=== PATIENT | male | born 1950 | race Caucasian/White ===

== ENCOUNTER → 2020-08-09 07:50 | Outpatient (CLI) | payer MEDICARE, OTHER, SELFPAY ==
--- NOTE | 2020-08-09 07:53 | EKG12_ITS ---
Test Reason : PREOP Blood Pressure : / mmHG Vent. Rate : 057 BPM Atrial Rate : 057 BPM P-R Int : 180 ms QRS Dur : 084 ms QT Int : 440 ms P-R-T Axes : 014 -06 035 degrees QTc Int : 428 ms Sinus bradycardia Otherwise normal ECG Confirmed by ECHO HIDALGO, TATIANA ([id number]), writer editor QI PIMENTEL ([id number]) on 08/10/2020 11:39:11 AM Referred By: Adolfo Sharma Confirmed By:TATIANA DODGE MD
[2020-08-09 08:37] LABS: Absolute Lymphocyte Count 1.49 X10^3/uL (0.83-4.51); Absolute Neutrophil Count 3.7 X10^3/uL (2.0-7.7); Basophil# 0.02 X10^3/uL; Basophil% 0.3 % (0-1); Eosinophil# 0.11 X10^3/uL; Eosinophils% 1.9 % (0-5); Hematocrit 45.1 % (40-54); Hemoglobin 15.3 g/dL (13.0-16.5); Lymphocyte # 1.49 X10^3/ul (4.0); Lymphocyte % 25.3 % (19-41); Mean Corp Hgb Conc 33.9 g/dL (32-36); Mean Corpuscular Hgb 32.4 pg (27.0-32.0); Mean Corpuscular Volume 95.6 fL (80-94); Mean Platelet Vol. 9.7 fl (6.2-12.0); Monocyte# 0.53 X10^3/uL; NRBC Flagged by Analyzer 0 % (0-5); Neutrophil # 3.72 X10^3/uL (2.7-7.7); Platelet Count 213 K/mm3 (150-450); RBC Distribution Width CV 11.4 % (11.6-14.6); RBC Distribution Width SD 40.2 fl (35.1-43.9); Red Blood Count 4.72 M/mm3 (4.6-6.2); White Blood Count 5.9 K/mm3 (4.4-11.0)
[2020-08-09 09:06] LABS: Anion Gap 3 (5-15); BUN 8 mg/dL (7-18); BUN/Creat Ratio 8.1 RATIO (10-20); Calcium,Total 9.1 mg/dL (8.5-10.1); Chloride 106 mmol/L (98-107); Creatinine, Serum 0.99 mg/dL (0.70-1.30); EST Glomerular Filtration Rate 79 mL/min (>60); Est Glom Filt Rate - Afr Amer 96 mL/min (>60); Glucose 165 mg/dL (74-106); Potassium 4.1 mmol/L (3.5-5.1); Sodium Level 139 mmol/L (136-145)
== END ==
PROVIDERS: Referring Provider Physician Assistant; Visit Provider Physician Assistant
DX: Z01.812 Encounter for preprocedural laboratory examination (principal); Z01.810 Encounter for preprocedural cardiovascular examination; Z20.822 Contact with and (suspected) exposure to COVID-19
CPT/HCPCS: 36415; 80048; 85025; 87635; 93005; C9803; U0005; U0003

== ENCOUNTER → 2020-10-22 14:37 | Outpatient (CLI) | payer MEDICARE, OTHER, SELFPAY | PROVIDERS: Visit Provider Physician Assistant | DX: Z20.822 Contact with and (suspected) exposure to COVID-19 (principal) | CPT/HCPCS: 87635; C9803; U0002 ==

== ENCOUNTER → 2020-10-25 14:27 | Outpatient (CLI) | payer MEDICARE, OTHER, SELFPAY ==
[2020-10-25 17:36] LABS: Hematocrit 45.3 % (40-54); Hemoglobin 14.9 g/dL (13.0-16.5); Mean Corp Hgb Conc 32.9 g/dL (32-36); Mean Corpuscular Hgb 31.7 pg (27.0-32.0); Mean Corpuscular Volume 96.4 fL (80-94); Mean Platelet Vol. 10.3 fl (6.2-12.0); Platelet Count 212 K/mm3 (150-450); RBC Distribution Width CV 11.6 % (11.6-14.6); RBC Distribution Width SD 40.8 fl (35.1-43.9); White Blood Count 5.5 K/mm3 (4.4-11.0)
[2020-10-25 18:00] LABS: Anion Gap 5 (5-15); BUN 9 mg/dL (7-18); BUN/Creat Ratio 10.7 RATIO (10-20); Chloride 104 mmol/L (98-107); Creatinine, Serum 0.84 mg/dL (0.70-1.30); EST Glomerular Filtration Rate 95 mL/min (>60); Est Glom Filt Rate - Afr Amer 115 mL/min (>60); Glucose 87 mg/dL (74-106); Potassium 3.9 mmol/L (3.5-5.1); Sodium Level 141 mmol/L (136-145)
== END ==
PROVIDERS: Referring Provider Physician Assistant; Visit Provider Physician Assistant
DX: Z01.810 Encounter for preprocedural cardiovascular examination (principal); Z01.812 Encounter for preprocedural laboratory examination
CPT/HCPCS: 36415; 80048; 85027

== ENCOUNTER 2025-03-21 10:41 | Emergency (ER) | payer MEDICARE, OTHER, SELFPAY ==
[2025-03-21 10:42] VITALS: BP 140/70; PULSE 64; RESP 18; TEMP 36.9; O2SAT 98; BMI 29.2
--- OUTSIDE RECORDS SUMMARY | 2025-03-21 11:08 | XMS RPT_ITS | CCD ---
Author Organization [facility] Inform ion Partnership [facility] Care Team Providers Care Metal Hanging Supervisor Name Role Phone Garrett HIDALGO, Chris Sarmiento Primary Care Provider [phone] Chris Ibarra MD Primary Care Provider [phone] Dorita Lincoln APRN.CNP Unavailable [phone] CHRIS IBARRA Attending Unavailable GARRETT, CHRIS Sarmiento Primary Care Unavailable MEENA CORRAL Referring Unavailable GARRETT, CHRIS Sarmiento Primary Care Unavailable GARRETT, CHRIS Sarmiento Referring Unavailable IBARRA, CHRIS Sarmiento Primary Care Unavailable GARRETT, CRHIS Sarmiento Primary Care Unavailable GARRETT, CHRIS Sarmiento Attending Unavailable GARRETT, CHRIS Sarmiento Primary Care Unavailable GARRETT, CHRIS Sarmiento Referring Unavailable GARRETT, CHRIS Sarmiento Primary Care Unavailable MEENA CORRAL Attending Unavailable GARRETT, CHRIS Sarmiento Referring Unavailable IBARRA, CHRIS Sarmiento Primary Care Unavailable IBARRA, CHRIS Sarmiento Attending Unavailable GARRETT, CHRIS Sarmiento Primary Care Unavailable Allergies Allergy Classification Reported Allergen(s) Allergy Type Date of Onset Reaction(s) Facility Cephalosporins (antibiotic) (1 source) Cephalexin Drug Allergy 09-16-2021 [facility] (20 sources) Cephalexin; Translations: [CEPHALEXIN] Drug Allergy 09-16-2021 [facility] Medications Current Medications Medication Drug Class(es) Dates Sig (Normalized) Sig (Original) Ascorbic Acid (20 sources) Vitamin C take 1 tablet by mouth once chas y take 1 tablet by mouth once chas y ascorbic acid (V ITAMIN C ORAL) Take by mouth. 0 Active Comment on above: Take by mouth. Take 1 tablet by leatha once daily. Unknown dosage cephalexin 500 mg oral capsule (1 source) Cephalosporin Antibacterial Start: End: take 1 capsule by mouth four times daily cephALEXin (KEFLEX) 500 mg capsule Take 1 capsule by mouth four times daily for 7 days. 28 capsule 0 09/12/2021 09/19/2021 Active Comment on above: Take 1 capsule by mo [facility] four times daily for 7 days. cholecalciferol 0.025 mg oral tablet (20 sources) Vitamin D take 3 tablets by mouth once daily cholecalciferol (VITAMIN D3) 1,000 unit tab tablet Take 3,000 Units by mouth once daily. Active Comment on above: Take 3,000 Units by mouth once daily. doxycycline hyclate 100 mg oral tablet (2 sources) Tetracycline-class Drug Start: End: take 1 tablet by mouth twice daily doxycycline (VIBRA-TABS) 100 mg tablet Take 1 tablet by mouth twice daily for 7 days. 14 tablet 0 12/24/2022 12/31/2022 Active Comment on above: [facility] fexofenadine hydrochloride 180 mg oral tablet (20 sources) Histamine-1 Receptor Antagonist Start: End: take 1 tablet by mouth once daily fexofenadine (MARITZA) 180 mg tablet Indications: Allergic rhinitis, unspecified seasonality, unspecified trigger Take 1 tablet by mouth once daily. 90 tablet 3 07/10/2024 Active Comment on above: Take 1 tablet by leatha once daily. finasteride 5 mg oral tablet (20 sources) 5-alpha Reductase Inhibitor Start: End: take 1 tablet by mouth once daily finasteride (PROSCAR) 5 mg tablet Indications: BPH with obstruction/lower urinary tract symptoms Take 1 tablet by mouth once daily. 90 tablet 5 11/19/2024 Active Comment on above: TAKE 1 TABLET DAILY Take 1 tablet by leatha once daily. triamcinolone acetonide 1 mg/ml topical cream (20 sources) Corticosteroid Start: End: triamcinolone acetonide (KENALOG) 0.1 % cream Indications: Rash and nonspecific skin eruption Apply 1 application to affected area three times a day. Apply sparingly to area for rash/itching. 30 g 1 12/03/2023 Active Comment on above: Apply 1 application to affected area three times daily. Apply sparingly to area for rash/itching. Apply 1 application to affected area three times daily for 7 days. Apply sparingly to area for rash/itching. vitamin b12 1 mg oral tablet (20 sources) Vitamin B12 take 1 tablet by mouth once daily cyanocobalamin (VITAMIN B-12) 1,000 mcg tab Take 1,000 mcg by mouth once daily. Active Comment on above: Take 1,000 mcg by mo [facility] once daily. Completed/Discontinued Medications Medication Drug Class(es) Dates Sig (Normalized) Sig (Original) acetaminophen 250 mg / aspirin 250 mg / caffeine 65 mg oral tablet (3 sources) Platelet Aggregation Inhibitor, Nonsteroidal Anti-inflammatory Drug, Central Nervous System Stimulant, Methylxanthine Start: 10-21-2020 End: 11-07-2021 take 1 tablet by mouth every eight hours as needed Aspirin-Acetaminop hen-Caffeine (EXCEDRIN) 250-250-65 mg per tablet Take 1 tablet by mouth every 8 hours as needed (shoulder pain.). 0 10/21/2020 11/07/2021 Discontinued Comment on above: Take 1 tablet by leatha every 8 hours as needed (shoulder pain.). fluticasone propionate 0.05 mg/actuat metered dose nasal spray (1 source) Corticosteroid Start: 09-09-2019 take 2 spray(s) by mouth once daily fluticasone (FLONASE) 50 mcg/actuation nasal spray Use 2 Sprays in each nostril once daily. Rinse mouth after use. 1 Bottle 11 09/09/2019 Active Comment on above: Use 2 Sprays in each nostril once daily. Rinse mouth after use. loratadine 10 mg oral tablet (7 sources) Start: 09-12-2021 End: 10-12-2022 take 1 tablet by mouth once daily loratadine (CLARITIN) 10 mg tablet Take 1 tablet by mouth once daily. 30 tablet 11 09/12/2021 10/12/2022 Discontinued (Changing Therapy/Dosage Form) Comment on above: Take 1 tablet by leatha once daily. metroNIDAZOLE 7.5 mg/ml topical cream (16 sources) Nitroimidazole Antimicrobial End: 12-03-2023 metroNIDAZOLE 0.75 % cream Apply 1 application to affected area twice daily. 0 12/03/2023 Discontinued Comment on above: Apply 1 application to affected area twice daily. predniSONE 5 mg oral tablet (2 sources) Start: 09-16-2021 End: 11-07-2021 predniSONE (DELTASONE) 5 mg tablet take two tablets daily for one week then take one table for one week then discontinue. Take with breakfast. For rash 21 tablet 0 09/16/2021 11/07/2021 Discontinued Comment on above: take two tablets coco ly for one week then take one table for one week then discontinue. Take with breakfast. For rash Problems Active Problems Problem Classification Problem Date Documented Da te Episodic/Chronic Cancer of prostate (20 sources) Malignant tumor of prostate; Translations: [Malignant neoplasm of prostate] Onset: 08-14-2007 11-30-2009 Chronic Disorders of lipid metabolism (15 sources) Hypercholesterolemi a; Translations: [Pure hypercholesterolemi a, unspecified] Onset: 12-03-2023 Chronic Hyperplasia of prostate (20 sources) Benign prostatic hypertrophy with outflow obstruction; Translations: [Benign prostatic hyperplasia with lower urinary tract symptoms] Onset: 04-24-2007 10-24-2018 Chronic Immunizations and screening for infectious disease (6 sources) Vaccination needed; Translations: [Encounter for immunization] Episodic Other nutritional; endocrine; and metabolic disorders (20 sources) Obese class I; Translations: [Obesity, unspecified] Onset: 10-21-2020 10-21-2020 Chronic Other nutritional; endocrine; and metabolic disorders (12 sources) Hypercalcemia; Translations: [Hypercalcemia] Onset: 12-03-2023 12-03-2023 Chronic Other nutritional; endocrine; and metabolic disorders (1 source) Hypercalcemia; Translations: [Hypercalcemia] Onset: 12-03-2023 Chronic Other skin disorders (5 sources) Eruption; Translations: [Rash and other nonspecific skin eruption] Episodic Other skin disorders (5 sources) Actinic keratosis; Translations: [Actinic keratosis] Onset: 12-08-2024 12-08-2024 Episodic Other upper respiratory disease (20 sources) Allergic rhinitis; Translations: [Allergic rhinitis, unspecified] Onset: 10-12-2022 Chronic Skin and subcutaneous tissue infections (2 sources) Cellulitis of skin; Translations: [Cellulitis, unspecified] 12-24-2022 Episodic Unclassified (1 source) Obesity, Class I, BMI 30-34.9; Translations: [Obesity, Class I, BMI 30-34.9] Onset: 10-21-2020 Past or Other Problems Problem Classification Problem Date Documented Date Episodic/Chronic Abdominal pain (12 sources) Left lower quadrant pain; Translations: [Left lower quadrant pain] Onset: 08-21-2006 Resolved: 10-21-2020 10-21-2020 Episodic Allergic reactions (12 sources) Allergic urticaria; Translations: [Allergic urticaria] Onset: 09-18-2005 Resolved: 10-21-2020 10-21-2020 Episodic Diabetes mellitus without complication (16 sources) Impaired fasting glycemia; Translations: [Impaired fasting glucose] Onset: 12-03-2023 12-03-2023 Episodic Diverticulosis and diverticulitis (12 sources) Diverticulitis of large intestine without perforation or abscess without bleeding; Translations: [Diverticulitis of colon (without mention of hemorrhage)] Onset: 08-21-2006 Resolved: 10-21-2020 10-21-2020 Chronic Esophageal disorders (12 sources) Gastroesophageal reflux disease; Translations: [Gastro-esophageal reflux disease without esophagitis] Onset: 11-20-2005 Resolved: 10-21-2020 10-21-2020 Chronic Genitourinary symptoms and ill-defined conditions (12 sources) Ino hematuria; Translations: [Gross hematuria] Onset: 2018 Resolved: 10-21-2020 10-21-2020 Episodic Inflammatory conditions of male genital organs (12 sources) Orchitis and epididymitis; Translations: [Epididymo-orchitis] Onset: 03-11-2009 Resolved: 10-21-2020 10-21-2020 Episodic Other circulatory disease (20 sources) Elevated blood pressure; Translations: [Elevated blood-pressure reading, without diagnosis of hypertension] Onset: 11-29-2022 Resolved: 12-05-2023 Episodic Other connective tissue disease (11 sources) Nontraumatic rupture of rotator cuff of left shoulder; Translations: [Unspecified rotator cuff tear or rupture of left shoulder, not specified as traumatic] Onset: 10-21-2020 10-21-2020 Episodic Other connective tissue disease (20 sources) Dupuytren's disease of palm; Translations: [Palmar fascial fibromatosis [Dupuytren]] Onset: 06-30-2021 Resolved: 12-05-2023 06-30-2021 Episodic Other connective tissue disease (14 sources) Nontraumatic rotator cuff tear; Translations: [Unspecified rotator cuff tear or rupture of left shoulder, not specified as traumatic] Onset: 10-21-2020 Resolved: 12-05-2023 10-21-2020 Episodic Other diseases of bladder and urethra (12 sources) Bladder neck obstruction; Translations: [Bladder-neck obstruction] Onset: 01-13-2010 Resolved: 10-21-2020 10-21-2020 Chronic Other diseases of kidney and ureters (1 source) Other obstructive and reflux uropathy; Translations: [BPH with obstruction/lower urinary tract symptoms] Onset: 10-24-2018 Episodic Other nutritional; endocrine; and metabolic disorders (14 sources) Obesity; Translations: [Obesity, unspecified] Onset: 09-18-2005 Resolved: 11-07-2021 11-30-2009 Chronic Other screening for suspected conditions (not mental disorders or infectious disease) (20 sources) Raised prostate specific antigen; Translations: [Elevated prostate specific antigen [PSA]] Onset: 07-24-2007 Resolved: 11-29-2022 11-30-2009 Episodic Other skin disorders (1 source) Actinic keratosis; Translations: [Actinic keratosis] Onset: 12-08-2024 Episodic Screening and history of mental health and substance abuse codes (4 sources) Patient encounter status; Translations: [Encounter for screening for depression] Onset: 12-08-2024 12-08-2024 Episodic Results Test Name Value Interpretation Reference Range Facility [facility] 03-10-2025 CNOV Office Visit (UROLWS ) VITOR SAXENA ([id number]) 1950 M Date Time Provider Department 03/10/25 1:00 PM MEENA CORRAL During your visit today, we recorded the following information about you: Pulse Blood pressure Weight 60/minute 143/75 92.5 kg Meena Corral PA-C 03/10/2025 2:30 PM Signed [facility] PATIENT CLINIC NOTE (M) Some elements copied from his previous note, which have been updated where appropriate, and all reflect current medical decision making from date of this visit. Note was generated by [employer] and edited as appropriate SERVICE DATE: March 10, 2025 NAME: Vitor Saxena GENDER: male CHIEF COMPLAINT: The patient is a 74-year-old male with prostate cancer on active surveillance, presenting for routine PSA monitoring. HISTORY OF PRESENT ILLNESS: The patient is a 74-year-old male with prostate cancer on active surveillance, presenting for routine PSA monitoring. Prostate Cancer: - Currently on active surveillance. - Last biopsy in 2007. - Recent PSA levels: 5.87 ng/mL, decreased to 5.1 ng/mL. - Highest recorded PSA was 5.1 ng/mL, 7 years ago. - Denies urinary issues. - Taking Proscar, refilled in November for one year. Weight Loss: - Lost approximately 40 lbs intentionally. LABS: PSA (ng/mL) Date Value 12/02/2024 5.10 04/01/2024 5.87 11/27/2023 4.64 01/22/2020 3.94 12/28/2018 4.28 03/05/2018 5.17 Creatinine Date Value Ref Range Status 01/08/2025 0.86 0.73 - 1.22 mg/dL Final 02/27/2024 0.94 0.73 - 1.22 mg/dL Final 11/27/2023 0.96 0.73 - 1.22 mg/dL Final No results found for: TESTOST Hematocrit (%) Date Value 02/27/2024 47.0 11/11/2020 47.0 10/10/2013 44.4 PSA (ng/mL) Date Value 12/02/2024 5.10 04/01/2024 5.87 11/27/2023 4.64 01/22/2020 3.94 12/28/2018 4.28 03/05/2018 5.17 MEDICATIONS: finasteride (PROSCAR) 5 mg tablet Take 1 tablet by mouth once daily. fexofenadine (MARITZA) 180 mg tablet Take 1 tablet by mouth once daily. triamcinolone acetonide (KENALOG) 0.1 % cream Apply 1 application to affected area three times a day. Apply sparingly to area for rash/itching. ascorbic acid (VITAMIN C ORAL) Take 1 tablet by mouth once daily. Unknown dosage cyanocobalamin (VITAMIN B-12) 1,000 mcg tab Take 1,000 mcg by mouth once daily. cholecalciferol (VITAMIN D3) 1,000 unit tab tablet Take 3,000 Units by mouth once daily. 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 Oral cavity, oropharynx clear Neck: Supple, no mass Breast: Deferred Respiratory: Clear to auscultation, bilaterally Cardiovascular: Regular rate and rhythm, no murmurs, rubs, or gallops Abdomen: Soft, non-tender, non-distended, no masses palpable, no hepatosplenomegaly, normal bowel sounds Genitourinary: Deferred MSK: Back is non-tender Extremities: No clubbing, cyanosis, or edema PROBLEM LIST REVIEW: Yes LABS: Results for orders placed or performed in visit on 03/10/25 UA DIP, URINE (POC) Result Value Ref Range GLUCOSE UA (POCT) Negative Negative mg/dL BILIRUBIN UA (POCT) Negative Negative KETONE UA (POCT) Negative Negative mg/dL SPECIFIC GRAVITY UA (POCT) 1.020 1.005 - 1.030 HEMOGLOBIN/BLOOD UA (POCT) Negative Negative PH UA (POCT) 5.5 4.5 - 8.0 PROTEIN UA (POCT) Negative Negative mg/dL UROBILINOGEN UA (POCT) 0.2 Normal E.U./dL NITRITE UA (POCT) Negative Negative LEUKOCYTES UA (POCT) Negative Negative COLOR UA (POCT) Yellow CLARITY UA (POCT) Clear ASSESSMENT/PLAN: 1. Malignant neoplasm of prostate (HCC) (C61) - Under active surveillance. Recent PSA levels show stability with a slight increase to 5.87 ng/mL followed by a decrease to 5.1 ng/mL; levels have been as high as 5.1 ng/mL over the past 7 years. Last biopsy was in 2007. No urinary symptoms or issues reported. Continues on Proscar, refilled in November for one year. Ordered PSA tests for 6 months and 1 year intervals. Scheduled follow-up in one year. > 1 year Appt w/ B. PAULA Corral, [place], PASherrill with PSA prior Patient Instructions (AVS) - printed for patient - Continue taking ProScar (finasteride) as prescribed; your r (more content not included)... Normal [facility] Comprehensive metabolic 2000 panelon 01-08-2025 Albumin [Mass/Vol] 4.2 g/dL Normal 3.9-4.9 [facility] Comment on above: Order Comment: Speci men Type: BLOOD SPECIMEN Ordering Facility: [facility] Address: [address] [place] [address] Performed By: #### 2 857-1 #### [facility] CLIA [id number] [address] [place] [address] [place] ALP [Catalytic activity/Vol] 65 U/L Normal 38-113 [facility] Comment on above: Order Comment: Speci men Type: BLOOD SPECIMEN Ordering Facility: [facility] Address: [address] [place] [address] Performed By: #### 2 857-1 #### [facility] CLIA [id number] [address] [place] [address] [place] ALT [Catalytic activity/Vol] 45 U/L Normal 10-54 [facility] Comment on above: Order Comment: Speci men Type: BLOOD SPECIMEN Ordering Facility: [facility] Address: [address] [place] [address] Performed By: #### 2 857-1 #### [facility] CLIA [id number] [address] [place] [address] [place] Anion gap [Moles/Vol] 10 mmol/L Normal 8-15 [facility] Comment on above: Order Comment: Speci men Type: BLOOD SPECIMEN Ordering Facility: [facility] Address: [address] [place] [address] Performed By: #### 2 857-1 #### [facility] CLIA [id number] [address] [place] [address] [place] AST [Catalytic activity/Vol] 31 U/L Normal 14-40 [facility] Comment on above: Order Comment: Speci men Type: BLOOD SPECIMEN Ordering Facility: [facility] Address: [address] [place] [address] Performed By: #### 2 857-1 #### [facility] CLIA [id number] [address] [place], [place] [id number] [place] Bilirubin [Mass/Vol] 0.3 mg/dL Normal 0.2-1.3 [facility] Comment on above: Order Comment: Speci men Type: BLOOD SPECIMEN Ordering Facility: [facility] Address: [address] [place] [address] Performed By: #### 2 857-1 #### [facility] CLIA [id number] [address] [place], [place] [address] [place] Calcium [Mass/Vol] 9.5 mg/dL Normal 8.5-10.2 [facility] Comment on above: Order Comment: Speci men Type: BLOOD SPECIMEN Ordering Facility: [facility] Address: [address] [place] [address] Performed By: #### 2 857-1 #### [facility] CLIA [id number] [address] [place], [place] [id number] [place] Chloride [Moles/Vol] 102 mmol/L Normal 98-107 [facility] Comment on above: Order Comment: Speci men Type: BLOOD SPECIMEN Ordering Facility: [facility] Address: [address] [place] [address] Performed By: #### 2 857-1 #### [facility] CLIA [id number] [address] [place] [address] [place] CO2 [Moles/Vol] 27 mmol/L Normal 22-30 [facility] Comment on above: Order Comment: Speci men Type: BLOOD SPECIMEN Ordering Facility: [facility] Address: [address] [place] [address] Performed By: #### 2 857-1 #### [facility] CLIA [id number] [address] [place] [address] [place] Creatinine [Mass/Vol] 0.86 mg/dL Normal 0.73-1.22 [facility] Comment on above: Order Comment: Speci men Type: BLOOD SPECIMEN Ordering Facility: [facility] Address: [address] [place] [address] Performed By: #### 2 857-1 #### [facility] CLIA [id number] [address] [place] [address] [place] eGFRcr SerPlBld CKD-EPI 2020 90 mL/min/1.73m??? Normal >=60 [facility] Comment on above: Order Comment: Speci men Type: BLOOD SPECIMEN Ordering Facility: [facility] Address: [address] [place] [address] Result Comment: Meg mated Glomerular Filtration Rate (eGFR) is calculated using the 2020 CKD-EPI creatinine equation. This equation utilizes serum creatinine, sex, and age as parameters. The creatinine assay has traceable calibration to isotope dilution-mass spectrometry. Refer to KDIGO guidelines for clinical interpretation. In patients with unstable renal function, e.g. those with acute kidney injury, the eGFR may not accurately reflect actual GFR. Performed By: #### 2 857-1 #### [facility] CLIA [id number] [address] [place] [address] [place] Glucose [Mass/Vol] 120 mg/dL High 74-99 [facility] Comment on above: Order Comment: Evelyn hendricks Type: BLOOD SPECIMEN Ordering Facility: [facility] Address: [address] [place] [address] Result Comment: The [place] Diabetes Association (ADA) provides guidance for cutoff values for fasting glucose and random glucose. The ADA defines fasting as no caloric intake for at least 8 hours. Fasting plasma glucose results between 100 to 125 mg/dL indicate increased risk for diabetes (prediabetes). Fasting plasma glucose results greater than or equal to 126 mg/dL meet the criteria for diagnosis of diabetes. In the absence of unequivocal hyperglycemia, results should be confirmed by repeat testing. In a patient with classic symptoms of hyperglycemia or hyperglycemic crisis, random plasma glucose results greater than or equal to 200 mg/dL meet the criteria for diagnosis of diabetes. Reference: Standards of Medical Care in Diabetes 2016, [place] [employer]. Diabetes Care. 2016.39(Suppl 1). Performed By: #### 2 857-1 #### [facility] CLIA [id number] [address] [place] [address] [place] Potassium [Moles/Vol] 4.7 mmol/L Normal 3.7-5.1 [facility] Comment on above: Order Comment: Evelyn hendricks Type: BLOOD SPECIMEN Ordering Facility: [facility] Address: [address] [place] [address] Performed By: #### 2 857-1 #### [facility] CLIA [id number] [address] [place] [address] [place] Protein [Mass/Vol] 6.8 g/dL Normal 6.3-8.0 [facility] Comment on above: Order Comment: Evelyn men Type: BLOOD SPECIMEN Ordering Facility: [facility] Address: [address] [place], [place] [id number] Performed By: #### 2 857-1 #### [facility] CLIA [id number] [address] [place] [address] [place] Sodium [Moles/Vol] 139 mmol/L Normal 136-144 [facility] Comment on above: Order Comment: Evelyn hendricks Type: BLOOD SPECIMEN Ordering Facility: [facility] Address: [address] [place] [address] Performed By: #### 2 857-1 #### [facility] CLIA [id number] [address] [place] [address] [place] Urea nitrogen [Mass/Vol] 13 mg/dL Normal 9-24 [facility] Comment on above: Order Comment: Evelyn hendricks Type: BLOOD SPECIMEN Ordering Facility: [facility] Address: [address] [place] [address] Performed By: #### 2 857-1 #### [facility] CLIA [id number] [address] [place] [address] [place] HbA1c (Bld)on 01-08-2025 Average glucose Estimated from glycated hemoglobin (Bld) [Mass/Vol] 120 mg/dL Normal [facility] Comment on above: Order Comment: Evelyn hendricks Type: BLOOD SPECIMEN Ordering Facility: [facility] Address: [address] [place] [address] Result Comment: eAG: (Estimated average glucose) is a calculated value from HgbA1c and is containers sales representative of the average blood glucose level in the last 2-3 month period. Performed By: #### 2 857-1 #### [facility] CLIA [id number] [address] [place] [address] [place] HbA1c (Bld) [Mass fraction] 5.8 % High 4.3-5.6 [facility] Comment on above: Order Comment: Evelyn hendricks Type: BLOOD SPECIMEN Ordering Facility: [facility] Address: [address] [place] [address] Result Comment: Amer ican Diabetes Association guidelines indicate that patients with HgbA1c in the range 5.7-6.4% are at increased risk for development of diabetes, and intervention by lifestyle modification may be beneficial. HgbA1c greater or equal to 6.5% is considered diagnostic of diabetes. Performed By: #### 2 857-1 #### [facility] CLIA [id number] [address] [place] [address] [place] CNPNon 12-10-2024 CNPN Telephone (INTMWS) VITOR SAXENA ([id number]) 1950 M Date Time Provider Department 12/10/24 CHRIS IBARRA INTMWS During your visit today, we recorded the following information about you: Kristi Wilkerson RN 12/10/2024 11:56 AM Signed Pt's called in and reports providers office had wanted Pt to see dermatology, and Pt had told them [facility], but she states Pt goes to [facility]. I told her then he ginger just need to go see them. I will fax order to them, faxed to [phone]. She was asking about lab orders. I told her I would need Pt's permission to give her medical information. She states he will not be happy. I asked if he was with her, and she said no he is at work. I told her she is just an emergency contact, it doesn't have in his chart that we can give her medical information. Called Pt and updated that we can give medical information. Le Pt know to come in and get lab work done whenever he can, and Iet him know I sent the dermatology order [facility]. Kristi Wilkerson RN Allergies As of Date: 12/10/2024 Noted Allergy Reaction CEPHALEXIN 09/16/2021 4 - Hives Date Reviewed: 07/10/2024 Reviewed by: Maddie Woodall LPN - Fully Assessed Reason for Visit: Patient Question [4377] Prescriptions as of 12/10/2024 - finasteride (PROSCAR) 5 mg tablet Take 1 tablet by mouth once daily. - fexofenadine (MARITZA) 180 mg tablet Take 1 tablet by mouth once daily. - triamcinolone acetonide (KENALOG) 0.1 % cream Apply 1 application to affected area three times a day. Apply sparingly to area for rash/itching. - ascorbic acid (VITAMIN C ORAL) Take 1 tablet by mouth once daily. Unknown dosage - cyanocobalamin (VITAMIN B-12) 1,000 mcg tab Take 1,000 mcg by mouth once daily. - cholecalciferol (VITAMIN D3) 1,000 unit tab tablet Take 3,000 Units by mouth once daily. Problem List As Of Date 12/10/2024 Noted Resolved OBESITY [E66.9] 09/18/2005 11/07/2021 HIVES ALLERGIC [L50.0] 09/18/2005 10/21/2020 Esophageal reflux [K21.9] 11/20/2005 10/21/2020 Diverticulitis of colon (without mention of hem*08/21/2006 10/21/2020 PAIN ABDOMEN( Left Lower Quadrant) [R10.32] 08/21/2006 10/21/2020 BPH with obstruction/lower urinary tract sympto*04/24/2007 Elevated prostate specific antigen (PSA) [R97.2*07/24/2007 11/29/2022 Malignant Neoplasm of Prostate [C61] 08/14/2007 Orchitis and epididymitis, unspecified [N45.3] 03/11/2009 10/21/2020 Bladder neck obstruction [N32.0] 01/13/2010 10/21/2020 Elevated PSA [R97.20] 12/23/2012 10/21/2020 Gross hematuria [R31.0] 2018 10/21/2020 Obesity, Class I, BMI 30-34.9 [E66.811] 10/21/2020 Nontraumatic tear of left rotator cuff [M75.102]10/21/2020 12/05/2023 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 12/05/2023 Allergic rhinitis [J30.9] 10/12/2022 Elevated blood pressure reading [R03.0] 11/29/2022 12/05/2023 Hypercholesterolemia [E78.00] 12/03/2023 Hypercalcemia [E83.52] 12/03/2023 Impaired fasting glucose [R73.01] 12/03/2023 Actinic keratosis [L57.0] 12/08/2024 Encounter Status:Closed by KRISTI WILKERSON on 12/10/24 [facility] CNOVon 12-08-2024 CNOV Office Visit (INTMWS ) VITOR SAXENA Yong ([id number]) 1950 M Date Time Provider Department 12/08/24 6:00 PM CHRIS IBARRA INTMWS During your visit today, we recorded the following information about you: Pulse Blood pressure Weight Height 58/minute 130/74 90.6 kg 1.753 m Chris Ibarra MD 12/13/2024 10:31 AM Signed Vitor Yong Hemanth is a 74 year old male here for a Medicare wellness visit. Medicare Health Risk Assessment General Health Very good Exercise: Minutes/Day 10 min Exercise: Days/Week 5 days Alcohol: Daily Use 2-3 times a week Alcohol: Drinks/Day 1 or 2 Alcohol: 6 or more drinks Never Feel off balance No Concerns: Teeth/Dentures Yes Concerns: Sexual function No Troubled by feelings None of the above Frequency: Eating healthy diet Nearly every day ADLs requiring help None of the above Safety precautions in home/vehicle Yes Smoke, vape, chews tobacco No Difficulty hearing Yes Difficulty seeing No Current Providers Specialists: I have reviewed specialist-related care of the patient in the medical record. Current care team: Patient Care Team: Chris Ibarra MD as PCP - General (Internal Medicine) Dorita Lincoln, SPORTS PHYSIOTHERAPIST.MAINTENANCE DISPATCHER as Cushion Assembler (Internal Medicine) Meena Corral PA-C (Urology) Outside specialists seen: [facility]. Medical/Family history review Reviewed and updated problem list, medical/surgical/family/soci al history, medications, and allergies. Opioid use review Opioid Medications (last 90 days) No data to display Anxiety/Depression screening PHQ-2 Score: 0 (Lower risk for depression) ELMA-2 Score: 0 (Lower risk for anxiety) Recommendation: no further intervention at this time Cognitive screening Mini Cog Score: 2 Cognitive screening reviewed and No further action needed (score 3-5). Functional Observation Was the patient's Timed Up AND Go test unsteady or >= 12 seconds? No Advance Care Planning Patient did not wish or was not able to name a surrogate decision maker or provide an advance care plan Measurements BP 130/74 Pulse (!) 58 Ht 175.3 cm (5' 9) Wt 90.6 kg (199 lb 11.8 oz) BMI 29.50 kg/m? Vision Screening: Follows with optometry/ophthalmology Right: 20/50 Left: 20/ 50 Both: 20/50 Assessment/Plan Medicare annual wellness visit, subsequent (Z00.00) - Counseled on healthy diet and regular exercise - Fall avoidance information provided - Personalized prevention plan provided - Discussed need for and benefit of weight loss. BMI 29.50 kg/(m2) Chris Ibarra MD 12/08/2024 6:32 PM Signed Screening schedule The following prevention plan is recommended: Advance Directive Discussion due on 06/18/2024 Medicare Annual Wellness Visit due on 12/02/2024 Depression Screening due on 12/02/2024 Anxiety Screening due on 12/02/2024 WHAT YOU CAN DO TO PREVENT FALLS Many falls can be prevented. By making some changes, you can lower your chances of falling. Four things YOU can do to prevent falls for you* and your caregiver 1. Begin a regular exercise program Exercise is one of the most important ways to lower your chances of falling. It makes you stronger and helps you feel better. Exercises that improve balance and coordination (like August Chi) are the most helpful. Lack of exercise leads to weakness and increases your chances of falling. Ask your doctor or health care provider about the best type of exercise program for you. 2. Have your health care provider review your medicines Have your doctor or pharmacist review all the medicines you take, even [id number] medicines. As you get older, the way medicines work in your body can change. Some medicines, or combinations of medicines, can make you sleepy or dizzy and can cause you to fall. 3. Have your vision checked Have your eyes checked by an eye doctor at least once a year. You may be wearing the wrong glasses or have a condition like glaucoma or cataracts that limits your vision. Poor vision can increase your chances of falling. 4. Make your home safer About half of all falls happen at home. To make your home safer: Remove things you can trip over (like papers, books, clothes, and shoes) from stairs and places where you walk. Remove small throw rugs or use double-sided tape to keep the rugs from slipping. Keep items you use often in cabinets you can reach easily without using a step stool. Have grab bars put in next to your toilet and in the tub or shower. Use non-slip mats in the bathtub and on shower floors. Improve the lighting in your home. As you get older, you need brighter lights to see well. Hang light-weight curtains or shades to reduce glare. Have handrails and lights put in on all staircases. Wear shoes both inside and outside the house. Avoid going barefoot or wearing slippers. For more information, contact: (more content not included)... Normal [facility] PSA SerPl-ncon 12-02-2024 Prostate specific Ag [Mass/Vol] 5.10 ng/mL High <2.60 [facility] Comment on above: Order Comment: Speci men Type: BLOOD SPECIMEN Ordering Facility: [facility] Address: [address] [place] [address] Result Comment: Pepper cochran PSA test methodology used is the Electrochemiluminescence Immunoassay by [employer]. Total PSA values by differing methodologies cannot be interchanged. For an individual patient, the significance of a PSA level should be interpreted in a broad clinical context, including age, race, family history, digital rectal exam, prostate size, results of prior testing (prostate biopsy, free PSA, PCA3), and use of 5-alpha reductase inhibitors. Considering the high incidence of asymptomatic cancer in the general population that may not pose an ultimate risk to a patient, the decision to recommend urological evaluation or prostate biopsy should be individualized after consideration of all these factors. REFERENCE: Bhargav Chamberlain M.D., M.P.H., Alvarado Araya M.D., Ph.D., Jefe Stanton M.D., Annita Rivas, M.P.H., Tati Johnson Sc.D. Effect of Verification Bias on Screening for Prostate Cancer by Measurement of Prostatic Specific Antigen. N Engl J Med 2003,349:335-42. Performed By: #### 2 857-1 #### [facility] CLIA [id number] [address] [place] [address] [facility] CNOVon 07-10-2024 CNOV Office Visit (INTMWS ) VITOR SAXENA Yong ([id number]) 1950 M Date Time Provider Department 07/10/24 5:40 PM CHRIS IBARRA INTSaniyaWS During your visit today, we recorded the following information about you: Temperature Pulse Respiration Blood pressure 97.2 degrees 60/minute 14/minute 128/74 Weight Height 91 kg 1.778 m Chris Ibarra MD 07/10/2024 6:15 PM Signed This note was created using LSAT Freedom[employer]. Subjective Vitor Yong Hemanth is a 74 year old male. He had unexplained hyperglycemia in February. Subsequent follow ups were consistent with impaired fasting glucose. He was watching his diet and results are trending to normal. was asking for a prescription non sedating antihistamine. He has been taking Maritza with good result. Review of Systems Constitutional: Negative for unexpected weight change. Endocrine: Negative for polydipsia, polyphagia and polyuria. ACTIVE PROBLEM LIST Bph With Obstruction/Lower Urinary Tract Symptoms Malignant Neoplasm of Prostate (Hcc) Obesity, Class I, Bmi 30-34.9 Allergic Rhinitis Hypercholesterolemia Hypercalcemia Impaired Fasting Glucose Social History Tobacco Use Smoking status: Never Smokeless tobacco: Never Vaping Use Vaping status: Never Used Substance Use Topics Alcohol use: Yes Alcohol/week: 2.0 standard drinks of alcohol Types: 2 Cans of Beer (12oz) per week Drug use: Never Current Outpatient Medications Medication Sig triamcinolone acetonide (KENALOG) 0.1 % cream Apply 1 application to affected area three times a day. Apply sparingly to area for rash/itching. finasteride (PROSCAR) 5 mg tablet Take 1 tablet by mouth once daily. fexofenadine (MARITZA) 180 mg tablet Take 1 tablet by mouth once daily. ascorbic acid (VITAMIN C ORAL) Take 1 tablet by mouth once daily. Unknown dosage cyanocobalamin (VITAMIN B-12) 1,000 mcg tab Take 1,000 mcg by mouth once daily. cholecalciferol (VITAMIN D3) 1,000 unit tab tablet Take 3,000 Units by mouth once daily. No current facility-administered medications for this visit. Objective BP 128/74 (BP Site: Right Arm, BP Position: Sitting, BP Cuff Size: Large Adult) Pulse 60 Temp 36.2 ?C (97.2 ?F) Resp 14 Ht 177.8 cm (5' 10) Wt 91 kg (200 lb 9.9 oz) SpO2 97% BMI 28.79 kg/m? Physical Exam Constitutional: Appearance: Normal appearance. Latest Ref Rng 07/07/2024 Hemoglobin A1C 4.3 - 5.6 % 5.7 (H) Estimated Average Glucose mg/dL 117 Glucose, Fasting 74 - 99 mg/dL 89 Legend: (H) High Assessment and Plan 1. Impaired fasting glucose - ICD9: 790.21, ICD10: R73.01 (primary diagnosis) Improved. Continue diet. 2. Allergic rhinitis, unspecified seasonality, unspecified trigger - ICD9: 477.9, ICD10: J30.9 Rx sent. Call if not covered. - FEXOFENADINE 180 MG TABLET MD Garrett Garrett Victor H, MD 07/10/2024 6:06 PM Signed GET RSV VACCINE AT YOUR PHARMACY. Allergies As of Date: 07/10/2024 Noted Allergy Reaction CEPHALEXIN 09/16/2021 4 - Hives Date Reviewed: 07/10/2024 Reviewed by: Maddie Woodall LPN - Fully Assessed Reason for Visit: Follow Up [171] Cmt: question, about over the counter med to take for runny nose besides Maritza Primary Visit Diagnosis:Impaired fasting glucose [R73.01] Other Visit Diagnosis:Allergic rhinitis, unspecified seasonality, unspecified trigger [J30.9] Order(s):fexofenadine (MARITZA) 180 mg tabletTake 1 tablet by mouth once daily.Disp: 90 tabletRfl: 3 Prescriptions as of 07/10/2024 - fexofenadine (MARITZA) 180 mg tablet Take 1 tablet by mouth once daily. - triamcinolone acetonide (KENALOG) 0.1 % cream Apply 1 application to affected area three times a day. Apply sparingly to area for rash/itching. - finasteride (PROSCAR) 5 mg tablet Take 1 tablet by mouth once daily. - ascorbic acid (VITAMIN C ORAL) Take 1 tablet by mouth once daily. Unknown dosage - cyanocobalamin (VITAMIN B-12) 1,000 mcg tab Take 1,000 mcg by mouth once daily. - cholecalciferol (VITAMIN D3) 1,000 unit tab tablet Take 3,000 Units by mouth once daily. Problem List As Of Date 07/10/2024 Noted Resolved OBESITY [E66.9] 09/18/2005 11/07/2021 HIVES ALLERGIC [L50.0] 09/18/2005 10/21/2020 Esophageal reflux [K21.9] 11/20/2005 10/21/2020 Diverticulitis of colon (without mention of hem*08/21/2006 10/21/2020 PAIN ABDOMEN( Left Lower Quadrant) [R10.32] 08/21/2006 10/21/2020 BPH with obstruction/lower urinary tract sympto*04/24/2007 Elevated prostate specific antigen (PSA) [R97.2*07/24/2007 11/29/2022 Malignant Neoplasm of Prostate [C61] 08/14/2007 Orchitis and epididymitis, unspecified [N45.3] 03/11/2009 10/21/2020 Bladder neck obstruction [N32.0] 01/13/2010 10/21/2020 Elevated PSA [R97.20] 12/23/2012 10/21/2020 Gross hematuria [R31.0] 2018 10/21/2020 Obesity, Class I, BMI 30-34.9 [E66.811] 10/21/2020 Nontraumatic tear of left r (more content not included)... Normal [facility] Glucose p fast SerPl-mCncon 07-07-2024 Glucose post fast [Mass/Vol] 89 mg/dL Normal 74-99 [facility] Comment on above: Order Comment: Evelyn hendricks Type: BLOOD SPECIMEN Ordering Facility: [facility] Address: [address] [place] [address] Result Comment: Amer ican Diabetes Association guidelines state that a diabetes mellitus diagnosis is preliminarily made when the fasting plasma glucose meets or exceeds 126 mg/dL. In the absence of unequivocal hyperglycemia, results should be confirmed with repeat testing. Patients are at increased risk for diabetes mellitus (prediabetes) when the fasting glucose is 100 to 125 mg/dL. Performed By: #### 1 558-6 #### [facility] CLIA [id number] [address] [place] [address] [place] HbA1c (Bld)on 07-07-2024 Average glucose Estimated from glycated hemoglobin (Bld) [Mass/Vol] 117 mg/dL Normal [facility] Comment on above: Order Comment: Evelyn hendricks Type: BLOOD SPECIMEN Ordering Facility: [facility] Address: [address] [place] [address] Result Comment: eAG: (Estimated average glucose) is a calculated value from HgbA1c and is containers sales representative of the average blood glucose level in the last 2-3 month period. Performed By: #### 5 5454-3 #### [facility] CLIA [id number] [address] [place] [address] [place] HbA1c (Bld) [Mass fraction] 5.7 % High 4.3-5.6 [facility] Comment on above: Order Comment: Evelyn hendricks Type: BLOOD SPECIMEN Ordering Facility: [facility] Address: [address] [place] [address] Result Comment: Amer ican Diabetes Association guidelines indicate that patients with HgbA1c in the range 5.7-6.4% are at increased risk for development of diabetes, and intervention by lifestyle modification may be beneficial. HgbA1c greater or equal to 6.5% is considered diagnostic of diabetes. Performed By: #### 5 5454-3 #### [facility] CLIA [id number] [address] [place], [place] [id number] [place] CNOVon 04-10-2024 CNOV Office Visit (INTMWS ) VITOR SAXENA ([id number]) 1950 M Date Time Provider Department 04/10/24 5:20 PM CHRIS IBARRA INTMWS During your visit today, we recorded the following information about you: Temperature Pulse Respiration Blood pressure 98.2 degrees 68/minute 16/minute 111/68 Weight 91.4 kg Chris Ibarra MD 04/10/2024 5:50 PM Signed Low carbohydrate diet (Mediterranean diet) Regular exercise. Weight loss. Fasting blood work in June for sugar. Allergies As of Date: 04/10/2024 Noted Allergy Reaction CEPHALEXIN 09/16/2021 4 - Hives Date Reviewed: 04/10/2024 Reviewed by: Pepe Galdamez MA - Fully Assessed Reason for Visit: Elevated glucose [Other] Primary Visit Diagnosis:Impaired fasting glucose [R73.01] Other Visit Diagnosis:Encounter for immunization [Z23] Order(s):INFLUENZA VACCINE, PRSV FREE, AGE 65+ YR, HIGH DOSE, TRIVALENT (FLUZONE HIGH-DOSE) [[id number]] Order #: [id number] GLUCOSE, FASTING [SQGLF] Order #: [id number] FUTURE HEMOGLOBIN A1C [YCZRI2P] Order #: [id number] FUTURE Prescriptions as of 04/10/2024 - triamcinolone acetonide (KENALOG) 0.1 % cream Apply 1 application to affected area three times a day. Apply sparingly to area for rash/itching. - finasteride (PROSCAR) 5 mg tablet Take 1 tablet by mouth once daily. - fexofenadine (MARITZA) 180 mg tablet Take 1 tablet by mouth once daily. - ascorbic acid (VITAMIN C ORAL) Take 1 tablet by mouth once daily. Unknown dosage - cyanocobalamin (VITAMIN B-12) 1,000 mcg tab Take 1,000 mcg by mouth once daily. - cholecalciferol (VITAMIN D3) 1,000 unit tab tablet Take 3,000 Units by mouth once daily. Problem List As Of Date 04/10/2024 Noted Resolved OBESITY [E66.9] 09/18/2005 11/07/2021 HIVES ALLERGIC [L50.0] 09/18/2005 10/21/2020 Esophageal reflux [K21.9] 11/20/2005 10/21/2020 Diverticulitis of colon (without mention of hem*08/21/2006 10/21/2020 PAIN ABDOMEN( Left Lower Quadrant) [R10.32] 08/21/2006 10/21/2020 BPH with obstruction/lower urinary tract sympto*04/24/2007 Elevated prostate specific antigen (PSA) [R97.2*07/24/2007 11/29/2022 Malignant Neoplasm of Prostate [C61] 08/14/2007 Orchitis and epididymitis, unspecified [N45.3] 03/11/2009 10/21/2020 Bladder neck obstruction [N32.0] 01/13/2010 10/21/2020 Elevated PSA [R97.20] 12/23/2012 10/21/2020 Gross hematuria [R31.0] 2018 10/21/2020 Obesity, Class I, BMI 30-34.9 [E66.811] 10/21/2020 Nontraumatic tear of left rotator cuff [M75.102]10/21/2020 12/05/2023 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 Weight loss. Fasting blood work in June for sugar. Disposition: Return in about 3 months (around 07/11/2024). Follow-up and Disposition History for Encounter Date Provider Department Center 04/10/2024 [id number], CHRIS Sarmiento INTMWS [facility]yla Encounter Status:Closed by PEPE GALDAMEZ on 04/10/24 Normal [facility] Glucose p fast SerPl-mCncon 04-01-2024 Glucose post fast [Mass/Vol] 118 mg/dL High 74-99 [facility] Comment on above: Order Comment: Evelyn men Type: BLOOD SPECIMEN Ordering Facility: [facility] Address: [address] [place] [address] Result Comment: Amer ican Diabetes Association guidelines state that a diabetes mellitus diagnosis is preliminarily made when the fasting plasma glucose meets or exceeds 126 mg/dL. In the absence of unequivocal hyperglycemia, results should be confirmed with repeat testing. Patients are at increased risk for diabetes mellitus (prediabetes) when the fasting glucose is 100 to 125 mg/dL. Performed By: #### 2 857-1 #### [facility] CLIA [id number] [address] [place] [address] [place] PSA SerPl-mCncon 04-01-2024 Prostate specific Ag [Mass/Vol] 5.87 ng/mL High <2.60 [facility] Comment on above: Order Comment: Speci men Type: BLOOD SPECIMEN Ordering Facility: [facility] Address: [address] [place] [address] Result Comment: Tota dimas PSA test methodology used is the Electrochemiluminescence Immunoassay by [employer]. Total PSA values by differing methodologies cannot be interchanged. For an individual patient, the significance of a PSA level should be interpreted in a broad clinical context, including age, race, family history, digital rectal exam, prostate size, results of prior testing (prostate biopsy, free PSA, PCA3), and use of 5-alpha reductase inhibitors. Considering the high incidence of asymptomatic cancer in the general population that may not pose an ultimate risk to a patient, the decision to recommend urological evaluation or prostate biopsy should be individualized after consideration of all these factors. REFERENCE: Bhargav Chamberlain M.D., M.P.H., Alvarado Araya M.D., Ph.D., Jefe Stanton M.D., Annita Rivas M.P.H., Tati Johnson ScSarkis. Effect of Verification Bias on Screening for Prostate Cancer by Measurement of Prostatic Specific Antigen. N Engl J Med 2003,349:335-42. Performed By: #### 2 857-1 #### [facility] CLIA [id number] [address] [place] [address] [place] UA DIP, URINE (POC)on 2023 BILIRUBIN UA (POCT) Negative Negative [facility] CLARITY UA (POCT) Clear [facility] COLOR UA (POCT) Yellow [facility] GLUCOSE UA (POCT) Negative Negative mg/dL [facility] Hemoglobin Ql (U) Negative Negative [facility] KETONE UA (POCT) Negative Negative mg/dL [facility] LEUKOCYTES UA (POCT) Negative Negative [facility] NITRITE UA (POCT) Negative Negative [facility] U[facility] (POCT) 5.0 4.5 - 8.0 [facility] Protein Ql (U) Negative Negative mg/dL [facility] SPECIFIC GRAVITY UA (POCT) 1.025 1.005 - 1.030 [facility] UROBILINOGEN UA (POCT) 0.2 Normal E.U./dL [facility] Location:[facility], [address], [place], [address] [facility] UA DIP, URINE (POC)on 2023 BILIRUBIN UA (POCT) Negative Negative [facility] CLARITY UA (POCT) Clear [facility] COLOR UA (POCT) Light yellow [facility] GLUCOSE UA (POCT) Negative Negative mg/dL [facility] Hemoglobin Ql (U) Negative Negative [facility] KETONE UA (POCT) Negative Negative mg/dL [facility] LEUKOCYTES UA (POCT) Negative Negative [facility] NITRITE UA (POCT) Negative Negative [facility] PH UA (POCT) 5.5 4.5 - 8.0 [facility] Protein Ql (U) Negative Negative mg/dL [facility] SPECIFIC GRAVITY UA (POCT) 1.020 1.005 - 1.030 [facility] UROBILINOGEN UA (POCT) 0.2 E.U./dL Normal E.U./dL [facility] UA DIP, URINE (POC)on 2021 BILIRUBIN UA (POCT) Negative Negative [facility] CLARITY [facility] (POCT) [facility] Yellow [facility] GLUCOSE UA (POCT) Negative Negative mg/dL [facility] HEMOGLOBIN/BLOOD UA (POCT) Negative Negative [facility] KETONE UA (POCT) Negative Negative mg/dL [facility] LEUKOCYTES UA (POCT) Negative Negative [facility] NITRITE UA (POCT) Negative Negative [facility] PH UA (POCT) 7.0 4.5 - 8.0 [facility] Protein Ql (U) Negative Negative mg/dL [facility] SPECIFIC GRAVITY UA (POCT) 1.015 1.005 - 1.030 [facility] UROBILINOGEN UA (POCT) 0.2 E.U./dL Normal E.U./dL [facility] CNPMuriel 05-08-2022 PAVITHRA Telephone (UROLAG) VITOR SAXENA ([id number]) 1950 M Date Time Provider Department 05/08/22 CRISTI VILLARREAL During your visit today, we recorded the following information about you: MADIHA Singh 05/08/2022 9:13 AM Signed ----- Message from Cristi Villarreal DO sent at 05/08/2022 6:31 AM EST ----- PSA stable MADIHA Singh 05/08/2022 9:14 AM Signed Left message on phone for pt to return call. Tuyet Loaiza, CT Charmaine Nehemias Gomez 05/08/2022 10:03 AM Signed Donn's called in and I relayed the results to her, and that is stable. Charmaine Nehemias Gomez Allergies As of Date: 05/08/2022 Noted Allergy Reaction CEPHALEXIN 09/16/2021 4 - Hives Date Reviewed: 11/07/2021 Reviewed by: Stephanie Rosado LPN - Fully Assessed Reason for Visit: Patient Update [1234] Prescriptions as of 07/14/2022 - finasteride (PROSCAR) 5 mg tablet Take 1 tablet by mouth once daily. - triamcinolone acetonide (KENALOG) 0.1 % cream Apply 1 application to affected area three times daily. Apply sparingly to area for rash/itching. - loratadine (CLARITIN) 10 mg tablet Take 1 tablet by mouth once daily. - ascorbic acid (VITAMIN C ORAL) Take by mouth. - cyanocobalamin (VITAMIN B-12) 1,000 mcg tab Take 1,000 mcg by mouth once daily. - cholecalciferol (VITAMIN D) 1,000 unit tab tablet Take 3,000 Units by mouth once daily. - metroNIDAZOLE 0.75 % cream Apply 1 application to affected area twice daily. Problem List As Of Date 05/08/2022 Noted Resolved OBESITY [E66.9] 09/18/2005 11/07/2021 HIVES ALLERGIC [L50.0] 09/18/2005 10/21/2020 Esophageal reflux [K21.9] 11/20/2005 10/21/2020 Diverticulitis of colon (without mention of hem*08/21/2006 10/21/2020 PAIN ABDOMEN( Left Lower Quadrant) [R10.32] 08/21/2006 10/21/2020 BPH with obstruction/lower urinary tract sympto*04/24/2007 Elevated Prostate Specific Antigen (PSA) [R97.2*07/24/2007 Malignant Neoplasm of Prostate [C61] 08/14/2007 Orchitis and epididymitis, unspecified [N45.3] 03/11/2009 10/21/2020 Bladder neck obstruction [N32.0] 01/13/2010 10/21/2020 Elevated PSA [R97.20] 12/23/2012 10/21/2020 Gross hematuria [R31.0] 2018 10/21/2020 Obesity, Class I, BMI 30-34.9 [E66.9] 10/21/2020 Nontraumatic tear of left rotator cuff [M75.102]10/21/2020 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, [address] CA,Total 9.0 mg/dL Normal 8.5-10.1 [facility] Comment on above: Performed By: #### L 100.0500, L500.2500 #### [facility] [address] [place], [address] Chloride [Moles/Vol] 104 mmol/L Normal 98-107 [facility] Comment on above: Performed By: #### L 100.0500, L500.2500 #### [facility] [address] [place], [address] CO2 [Moles/Vol] 32.0 mmol/L Normal 21.0-32.0 [facility] Comment on above: Performed By: #### L 100.0500, L500.2500 #### [facility] [address] [place], [address] Creatinine [Mass/Vol] 0.84 mg/dL Normal 0.70-1.30 [facility] Comment on above: Result Comment: The validity of the calculated GFR GFRAA in patients over 70 years has not been determined. Clinical correlation is essential. Performed By: #### L 100.0500, L500.2500 #### [facility] [address] [place], [address] EST GFR - AA 115 mL/min Normal >60 [facility] Comment on above: Result Comment: Afri can Tongan GFR Calc Performed By: #### L 100.0500, L500.2500 #### [facility] [address] [place], [address] GAP 5 Normal 5-15 [facility] Comment on above: Performed By: #### L 100.0500, L500.2500 #### [facility] [address] [place], [address] GFR/1.73 sq M.predicted among non-blacks MDRD (S/P/Bld) [Vol rate/Area] 95 mL/min/{1.73_m2} Normal >60 [facility] Comment on above: Result Comment: Non- GFR Calc Performed By: #### L 100.0500, L500.2500 #### [facility] [address] [place], [address] Glucose [Mass/Vol] 87 mg/dL Normal 74-106 [facility] Comment on above: Result Comment: Kristian brody note revised GLUCOSE reference range effective 2017. Performed By: #### L 100.0500, L500.2500 #### [facility] [address] [place], [address] Potassium [Moles/Vol] 3.9 mmol/L Normal 3.5-5.1 [facility] Comment on above: Performed By: #### L 100.0500, L500.2500 #### [facility] [address] [place], [address] Sodium [Moles/Vol] 141 mmol/L Normal 136-145 [facility] Comment on above: Performed By: #### L 100.0500, L500.2500 #### [facility] [address] [place], [address] Urea nitrogen [Mass/Vol] 9 mg/dL Normal 7-18 [facility] Comment on above: Performed By: #### L 100.0500, L500.2500 #### [facility] [address] [place], [address] CBC-Complete Blood Cnt No Di ffon 10-25-2020 Erythrocyte distribution width (RBC) [Ratio] 11.6 % Normal 11.6-14.6 [facility] Comment on above: Performed By: #### L 100.0500, L500.2500 #### [facility] [address] [place], [address] Hematocrit (Bld) [Volume fraction] 45.3 % Normal 40-54 [facility] Comment on above: Performed By: #### L 100.0500, L500.2500 #### [facility] [address] [place], [address] Hemoglobin (Bld) [Mass/Vol] 14.9 g/dL Normal 13.0-16.5 [facility] Comment on above: Performed By: #### L 100.0500, L500.2500 #### [facility] [address] [place], [address] MCH (RBC) [Entitic mass] 31.7 pg Normal 27.0-32.0 [facility] Comment on above: Performed By: #### L 100.0500, L500.2500 #### [facility] [address] [place], [address] MCHC (RBC) [Mass/Vol] 32.9 g/dL Normal 32-36 [facility] Comment on above: Performed By: #### L 100.0500, L500.2500 #### [facility] [address] [place], [address] MCV (RBC) [Entitic vol] 96.4 fL High 80-94 [facility] Comment on above: Performed By: #### L 100.0500, L500.2500 #### [facility] [address] [place], [address] Platelet mean volume (Bld) [Entitic vol] 10.3 fL Normal 6.2-12.0 [facility] Comment on above: Performed By: #### L 100.0500, L500.2500 #### [facility] [address] [place], [address] Platelets (Bld) [#/Vol] 212 10*3/uL Normal 150-450 [facility] Comment on above: Performed By: #### L 100.0500, L500.2500 #### [facility] [address] [place], [address] RBC (Bld) [#/Vol] 4.70 10*6/uL Normal 4.6-6.2 [facility] Comment on above: Performed By: #### L 100.0500, L500.2500 #### [facility] [address] [place], [address] RDW SD 40.8 fl Normal 35.1-43.9 [facility] Comment on above: Performed By: #### L 100.0500, L500.2500 #### [facility] [address] [place], [address] WBC (Bld) [#/Vol] 5.5 10*3/uL Normal 4.4-11.0 [facility] Comment on above: Performed By: #### L 100.0500, L500.2500 #### [facility] [address] [place], [address] COVID 19, YOVANI WC(RT COLLECT )on 10-22-2020 SARS-CoV-2 (COVID-19) RNA YOVANI+probe Ql (Unsp spec) Not detected Normal Not Detect [facility] Comment on above: Result Comment: Norm al Reference Range: Not Detected Method:(RT-PCR) real-time reverse transcriptase PCR [employer]og[employer] Education Instrument *The Food and Drug Administration (FDA) has issued an Emergency Use Authorization (EAU) for the [employer] Education SARS-CoV-2 Assay for the rapid detection of the virus that causes COVID-19. This test has been validated, but the FDAs independent review of this validation is pending. *Negative results do not preclude infection and should not be used as the sole basis for treatment or patient management. Optimum specimen types and timing for peak viral levels during infections caused by SARS-CoV-2 have not been determined. Collection of multiple specimens from the same patient may be necessary to detect the virus. The possibility of a false negative result should be considered if the patient has clinical presentation or has had recent exposure. Performed By: #### L 3400.2405 #### [facility] [address] [place], [address] COVID 19, YOVANI SENDOUTon 07-20 SARS-CoV-2 (COVID-19) RNA YOVANI+probe Ql (Unsp spec) Not detected Normal Not Detected [facility] Comment on above: Result Comment: This nucleic acid amplification test was developed and its performance characteristics determined by [employer]. Nucleic acid amplification tests include RT- PCR and TMA. This test has not been FDA cleared or approved. This test has been authorized by FDA under an Emergency Use Authorization (EUA). This test is only authorized for the duration of time the declaration that circumstances exist justifying the authorization of the emergency use of in vitro diagnostic tests for detection of SARS-CoV-2 virus and/or diagnosis of COVID-19 infection under section 564(b)(1) of the Act, 21 U.S.C. 360bbb-3(b) (1), unless the authorization is terminated or revoked sooner. When diagnostic testing is negative, the possibility of a false negative result should be considered in the context of a patient's recent exposures and the presence of clinical signs and symptoms consistent with COVID-19. An individual without symptoms of COVID-19 and who is not shedding SARS-CoV-2 virus would expect to have a negative (not detected) result in this assay. Performed By: #### L 3400.4600 #### [facility] [address] [place], [address] 12 Lead EKGon 08-09-2020 12 Lead EKG [facility] [address] [place] [address] 12 Lead EKG 08/09/20 0811 MR#: [id number] Acct: [id number] Name: VITOR SAXENA Rep #: [id number] : 1950 70 From: Guillaume Fabian MD Attending Dr: Adolfo Sharma PA-C Status: REG CL I Ordering Dr: Adolfo Sharma PA-C Date: 08/09/20 Location: [facility] Sex: M C Admitted: Test Reason : PREOP Blood Pressure : / mmHG Vent. Rate : 057 BPM Atrial Rate : 057 BPM P-R Int : 180 ms QRS Dur : 084 ms QT Int : 440 ms P-R-T Axes : 014 -06 035 degrees QTc Int : 428 ms Sinus bradycardia Otherwise normal ECG Confirmed by ECHO HIDALGO, GUILLAUME ([id number]), editor in chief KRISTI PIMENTEL ([id number]) on 08/10/2020 11:39:11 AM Referred By: Adolfo Sharma Confirmed By:GUILLAUME FABIAN MD 08/10/20 1139 Date Guillaume Fabian MD CC: No Primary Care Physician; TREMAINE Sharma Signed Normal [facility] Basic Metabolic Profile (BMP )on 08-09-2020 BUN/CRE 8.1 RATIO Low 10-20 [facility] Comment on above: Performed By: #### L 500.2500, L100.0100 #### [facility] [address] [place], [address] CA,Total 9.1 mg/dL Normal 8.5-10.1 [facility] Comment on above: Performed By: #### L 500.2500, L100.0100 #### [facility] [address] [place], [address] Chloride [Moles/Vol] 106 mmol/L Normal 98-107 [facility] Comment on above: Performed By: #### L 500.2500, L100.0100 #### [facility] [address] [place], [address] CO2 [Moles/Vol] 30.0 mmol/L Normal 21.0-32.0 [facility] Comment on above: Performed By: #### L 500.2500, L100.0100 #### [facility] [address] [place], [address] Creatinine [Mass/Vol] 0.99 mg/dL Normal 0.70-1.30 [facility] Comment on above: Result Comment: The validity of the calculated GFR GFRAA in patients over 70 years has not been determined. Clinical correlation is essential. Performed By: #### L 500.2500, L100.0100 #### [facility] [address] [place], [address] EST GFR - AA 96 mL/min Normal >60 [facility] Comment on above: Result Comment: Afri can Tongan GFR Calc Performed By: #### L 500.2500, L100.0100 #### [facility] [address] [place], [address] GAP 3 Low 5-15 [facility] Comment on above: Performed By: #### L 500.2500, L100.0100 #### [facility] [address] [place], [address] GFR/1.73 sq M.predicted among non-blacks MDRD (S/P/Bld) [Vol rate/Area] 79 mL/min/{1.73_m2} Normal >60 [facility] Comment on above: Result Comment: Non- GFR Calc Performed By: #### L 500.2500, L100.0100 #### [facility] [address] [place], [address] Glucose [Mass/Vol] 165 mg/dL High 74-106 [facility] Comment on above: Result Comment: Fast ing Glucose result greater than or equal to 126 mg/dL suggests DIABETES MELLITUS per A.D.A. criteria. Please note revised GLUCOSE reference range effective 2017. Performed By: #### L 500.2500, L100.0100 #### [facility] [address] [place], [address] Potassium [Moles/Vol] 4.1 mmol/L Normal 3.5-5.1 [facility] Comment on above: Performed By: #### L 500.2500, L100.0100 #### [facility] [address] [place], [address] Sodium [Moles/Vol] 139 mmol/L Normal 136-145 [facility] Comment on above: Performed By: #### L 500.2500, L100.0100 #### [facility] [address] [place], [address] Urea nitrogen [Mass/Vol] 8 mg/dL Normal 7-18 [facility] Comment on above: Performed By: #### L 500.2500, L100.0100 #### [facility] [address] [place], [address] CBC W/Diff, Automatedon 07-20 Absolute Lymph 1.49 X10 3/uL Normal 0.83-4.51 [facility] Comment on above: Performed By: #### L 500.2500, L100.0100 #### [facility] [address] [place], [address] Absolute Neut 3.7 X10 3/uL Normal 2.0-7.7 [facility] Comment on above: Performed By: #### L 500.2500, L100.0100 #### [facility] [address] [place], [address] Basophils/100 WBC (Bld) 0.3 % Normal 0-1 [facility] Comment on above: Performed By: #### L 500.2500, L100.0100 #### [facility] [address] [place], [address] Eosinophils/100 WBC (Bld) 1.9 % Normal 0-5 [facility] Comment on above: Performed By: #### L 500.2500, L100.0100 #### [facility] [address] [place], [address] Erythrocyte distribution width (RBC) [Ratio] 11.4 % Low 11.6-14.6 [facility] Comment on above: Performed By: #### L 500.2500, L100.0100 #### [facility] [address] [place], [address] Hematocrit (Bld) [Volume fraction] 45.1 % Normal 40-54 [facility] Comment on above: Performed By: #### L 500.2500, L100.0100 #### [facility] [address] [place], [address] Hemoglobin (Bld) [Mass/Vol] 15.3 g/dL Normal 13.0-16.5 [facility] Comment on above: Performed By: #### L 500.2500, L100.0100 #### [facility] [address] [place], [address] IG% 0.500 Normal 0.0-0.9 [facility] Comment on above: Result Comment: IG% - Immature Granulocytes (promyelocytes, myelocytes and metamyelocytes) > 1% indicates that a LEFT SHIFT is Present. Performed By: #### L 500.2500, L100.0100 #### [facility] [address] [place], [address] Lymphocytes/100 WBC (Bld) 25.3 % Normal 19-41 [facility] Comment on above: Performed By: #### L 500.2500, L100.0100 #### [facility] [address] [place], [address] MCH (RBC) [Entitic mass] 32.4 pg High 27.0-32.0 [facility] Comment on above: Performed By: #### L 500.2500, L100.0100 #### [facility] [address] [place], [address] MCHC (RBC) [Mass/Vol] 33.9 g/dL Normal 32-36 [facility] Comment on above: Performed By: #### L 500.2500, L100.0100 #### [facility] [address] [place], [address] MCV (RBC) [Entitic vol] 95.6 fL High 80-94 [facility] Comment on above: Performed By: #### L 500.2500, L100.0100 #### [facility] [address] [place], [address] Monocytes/100 WBC (Bld) 9.0 % Normal 0-10 [facility] Comment on above: Performed By: #### L 500.2500, L100.0100 #### [facility] [address] [place], [address] Neutrophils/100 WBC (Bld) 63.0 % Normal 47-70 [facility] Comment on above: Performed By: #### L 500.2500, L100.0100 #### [facility] [address] [place], [address] Nucleated RBC (Bld) [#/Vol] 0 10*3/uL Normal 0-5 [facility] Comment on above: Performed By: #### L 500.2500, L100.0100 #### [facility] [address] [place], [address] Platelet mean volume (Bld) [Entitic vol] 9.7 fL Normal 6.2-12.0 [facility] Comment on above: Performed By: #### L 500.2500, L100.0100 #### [facility] [address] [place], [address] Platelets (Bld) [#/Vol] 213 10*3/uL Normal 150-450 [facility] Comment on above: Performed By: #### L 500.2500, L100.0100 #### [facility] [address] [place], [address] RBC (Bld) [#/Vol] 4.72 10*6/uL Normal 4.6-6.2 [facility] Comment on above: Performed By: #### L 500.2500, L100.0100 #### [facility] [address] [place], [address] RDW SD 40.2 fl Normal 35.1-43.9 [facility] Comment on above: Performed By: #### L 500.2500, L100.0100 #### [facility] [address] [place], [address] WBC (Bld) [#/Vol] 5.9 10*3/uL Normal 4.4-11.0 [facility] Comment on above: Performed By: #### L 500.2500, L100.0100 #### [facility] [address] [place], [address] Vital Signs Date Time Vital Sign Value Performing Clinician Yared garcia 12-08-2024 18:06-0400 Diastolic blood pressure 74 mm[Hg] Chris Ibarra MD Work Phone: [facility] 12-08-2024 18:06-0400 Heart rate 58 /min Chris Ibarra MD Work Phone: [facility] 06-23-2025 18:06-0400 Systolic blood pressure 130 mm[Hg] Chris Ibarra MD Work Phone: [facility] 12-08-2024 17:55-0400 Body height 175.3 cm Chris Ibarra MD Work Phone: [facility] 12-08-2024 17:55-0400 Body mass index (BMI) [Ratio] 29.5 kg/m2 Chris Ibarra MD Work Phone: [facility] 12-08-2024 17:55-0400 Body weight 90.6 kg Chris Ibarra MD Work Phone: [facility] 07-10-2024 17:21-0500 Body height 177.8 cm Chris Ibarra MD Work Phone: [facility] 07-10-2024 17:21-0500 Body mass index (BMI) [Ratio] 28.79 kg/m2 Chris Ibarra MD Work Phone: [facility] 07-10-2024 17:21-0500 Body temperature 97.2 [degF] Chris Ibarra MD Work Phone: [facility] 07-10-2024 17:21-0500 Body weight 91 kg Chris Ibarra MD Work Phone: [facility] 07-10-2024 17:21-0500 Diastolic blood pressure 74 mm[Hg] Chris Ibarra MD Work Phone: [facility] 07-10-2024 17:21-0500 Heart rate 60 /min Chris Ibarra MD Work Phone: [facility] 07-10-2024 17:21-0500 Respiratory rate 14 /min Chris Ibarra MD Work Phone: [facility] 07-10-2024 17:21-0500 SaO2% (BldA) [Mass fraction] 97 % Chris Ibarra MD Work Phone: [facility] 07-10-2024 17:21-0500 Systolic blood pressure 128 mm[Hg] Chris Ibarra MD Work Phone: [facility] 04-10-2024 17:34-0400 Diastolic blood pressure 68 mm[Hg] Chris Ibarra MD Work Phone: [facility] 04-10-2024 17:34-0400 Heart rate 68 /min Chris Ibarra MD Work Phone: [facility] 04-10-2024 17:34-0400 Systolic blood pressure 111 mm[Hg] Chris Ibarra MD Work Phone: [facility] 04-10-2024 17:32-0400 Body mass index (BMI) [Ratio] 28.91 kg/m2 Chris Ibarra MD Work Phone: [facility] 04-10-2024 17:32-0400 Body temperature 98.2 [degF] Chris Ibarra MD Work Phone: [facility] 04-10-2024 17:32-0400 Body weight 91.4 kg Chris Ibarra MD Work Phone: [facility] 04-10-2024 17:32-0400 Respiratory rate 16 /min Chris Ibarra MD Work Phone: [facility] 04-10-2024 17:32-0400 SaO2% (BldA) [Mass fraction] 97 % Chris Ibarra MD Work Phone: [facility] 03-04-2024 13:08-0400 Body mass index (BMI) [Ratio] 28.7 kg/m2 Meena Corral PA-C Work Phone: [facility] [facility] 03-04-2024 13:08-0400 Body temperature 98.1 [degF] Meena Corral PA-C Work Phone: [facility] 03-04-2024 13:08-0400 Body weight 90.72 kg Meena Corral PA-C Work Phone: [facility] 03-04-2024 13:08-0400 Diastolic blood pressure 80 mm[Hg] Meena Corral PA-C Work Phone: [facility] 03-04-2024 13:08-0400 Heart rate 94 /min Meena Corral PA-C Work Phone: [facility] 03-04-2024 13:08-0400 Respiratory rate 16 /min Meena Corral PA-C Work Phone: [facility] 03-04-2024 13:08-0400 SaO2% (BldA) [Mass fraction] 94 % Meena Corral PA-C Work Phone: [facility] 03-04-2024 13:08-0400 Systolic blood pressure 124 mm[Hg] Meena Corral PA-C Work Phone: [facility] 12-03-2023 18:17-0400 Body mass index (BMI) [Ratio] 29.7 kg/m2 Chris Ibarra MD Work Phone: [facility] 12-03-2023 18:17-0400 Body temperature 97.81 [degF] Chris Ibarra MD Work Phone: [facility] 12-03-2023 18:17-0400 Body weight 93.89 kg Chris Ibarra MD Work Phone: [facility] 12-03-2023 18:17-0400 Diastolic blood pressure 72 mm[Hg] Chris Ibarra MD Work Phone: [facility] 12-03-2023 18:17-0400 Heart rate 64 /min Chris Ibarra MD Work Phone: [facility] 12-03-2023 18:17-0400 Respiratory rate 16 /min Chris Ibarra MD Work Phone: [facility] 12-03-2023 18:17-0400 Systolic blood pressure 124 mm[Hg] Chris Ibarra MD Work Phone: [facility] 10-02-2023 15:01-0400 Body height 177.8 cm Meena Corral PA-C Work Phone: [facility] 10-02-2023 15:01-0400 Body temperature 98.1 [degF] Meena Corral PA-C Work Phone: [facility] 10-02-2023 15:01-0400 Body weight 94.08 kg Meena Corral PA-C Work Phone: [facility] 10-02-2023 15:01-0400 Diastolic blood pressure 82 mm[Hg] Meena Corral PA-C Work Phone: [facility] 10-02-2023 15:01-0400 Heart rate 86 /min Meena Corral PA-C Work Phone: [facility] 10-02-2023 15:01-0400 Respiratory rate 14 /min Meena Corral PA-C Work Phone: [facility] 10-02-2023 15:01-0400 SaO2% (BldA) [Mass fraction] 95 % Meena Corral PA-C Work Phone: [facility] 10-02-2023 15:01-0400 Systolic blood pressure 120 mm[Hg] Meena Corral PA-C Work Phone: [facility] 05-31-2023 13:24-0500 Body temperature 98.29 [degF] Chris Ibarra MD Work Phone: [facility] 05-31-2023 13:24-0500 Body weight 94.62 kg Chris Ibarra MD Work Phone: [facility] 05-31-2023 13:24-0500 Diastolic blood pressure 72 mm[Hg] Chris Ibarra MD Work Phone: [facility] 05-31-2023 13:24-0500 Heart rate 58 /min Chris Ibarra MD Work Phone: [facility] 05-31-2023 13:24-0500 Respiratory rate 16 /min Chris Ibarra MD Work Phone: [facility] 05-31-2023 13:24-0500 SaO2% (BldA) [Mass fraction] 98 % Chris Ibarra MD Work Phone: [facility] 05-31-2023 13:24-0500 Systolic blood pressure 122 mm[Hg] Chris Ibarra MD Work Phone: [facility] 12-27-2022 16:14-0400 Body temperature 98.2 [degF] Dorita Older SPORTS PHYSIOTHERAPIST.MAINTENANCE DISPATCHER Work Phone: [facility] 12-27-2022 16:14-0400 Body weight 95.25 kg Dorita Older SPORTS PHYSIOTHERAPIST.MAINTENANCE DISPATCHER Work Phone: [facility] 12-27-2022 16:14-0400 Diastolic blood pressure 78 mm[Hg] Dorita Older SPORTS PHYSIOTHERAPIST.MAINTENANCE DISPATCHER Work Phone: [facility] 12-27-2022 16:14-0400 Heart rate 60 /min Dorita Older SPORTS PHYSIOTHERAPIST.MAINTENANCE DISPATCHER Work Phone: [facility] 12-27-2022 16:14-0400 Respiratory rate 16 /min Dorita Older SPORTS PHYSIOTHERAPIST.MAINTENANCE DISPATCHER Work Phone: [facility] 12-27-2022 16:14-0400 Systolic blood pressure 142 mm[Hg] Dorita Older SPORTS PHYSIOTHERAPIST.MAINTENANCE DISPATCHER Work Phone: [facility] 12-24-2022 09:03-0400 Body temperature 97.39 [degF] Jenny Athy PA-C Work Phone: [facility] 12-24-2022 09:03-0400 Body weight 95.25 kg Jenny Athy PA-C Work Phone: [facility] 12-24-2022 09:03-0400 Diastolic blood pressure 78 mm[Hg] Jenny Athy PA-C Work Phone: [facility] 12-24-2022 09:03-0400 Heart rate 62 /min Jenny Athy PA-C Work Phone: [facility] 12-24-2022 09:03-0400 Respiratory rate 16 /min Jenny Athy PA-C Work Phone: [facility] 12-24-2022 09:03-0400 SaO2% (BldA) [Mass fraction] 99 % Jenny Baugh PA-C Work Phone: [facility] 12-24-2022 09:03-0400 Systolic blood pressure 122 mm[Hg] Jenny SMITH-Nyasia Work Phone: [facility] 11-29-2022 13:17-0400 Diastolic blood pressure 76 mm[Hg] Chris Ibarra MD Work Phone: [facility] 11-29-2022 13:17-0400 Heart rate 55 /min Chris Ibarra MD Work Phone: [facility] 11-29-2022 13:17-0400 Systolic blood pressure 134 mm[Hg] Chris Ibarra MD Work Phone: [facility] 11-29-2022 13:05-0400 Body height 175.3 cm Chris Ibarra MD Work Phone: [facility] 11-29-2022 13:05-0400 Body weight 96.98 kg Chris Ibarra MD Work Phone: [facility] 11-29-2022 13:05-0400 Respiratory rate 16 /min Chris Ibarra MD Work Phone: [facility] 06-08-2022 11:25-0500 Body height 177.8 cm Denglou Villarreal Work Phone: [facility] 06-08-2022 11:25-0500 Body weight 97.07 kg Denglou PérezPhil DO Work Phone: [facility] 11-07-2021 18:57-0400 Diastolic blood pressure 62 mm[Hg] Chris Ibarra MD Work Phone: [facility] 11-07-2021 18:57-0400 Systolic blood pressure 128 mm[Hg] Chris Ibarra MD Work Phone: [facility] 11-07-2021 18:35-0400 Body height 175.3 cm Chris Ibarra MD Work Phone: [facility] 11-07-2021 18:35-0400 Body weight 95.25 kg Chris Ibarra MD Work Phone: [facility] 11-07-2021 18:35-0400 Heart rate 60 /min Chris Ibarra MD Work Phone: [facility] 11-07-2021 18:35-0400 Respiratory rate 16 /min Chris Ibarra MD Work Phone: [facility] 10-17-2021 09:20-0400 Diastolic blood pressure 78 mm[Hg] Liz Bogner PA-C Work Phone: [facility] 10-17-2021 09:20-0400 Systolic blood pressure 138 mm[Hg] Liz Bogner PA-C Work Phone: [facility] 10-17-2021 09:03-0400 Body temperature 98.01 [degF] Liz Bogner PA-C Work Phone: [facility] 10-17-2021 09:03-0400 Body weight 98.88 kg Liz Bogner PA-C Work Phone: [facility] 10-17-2021 09:03-0400 Heart rate 60 /min Liz Bogner PA-C Work Phone: [facility] 10-17-2021 09:03-0400 Respiratory rate 18 /min Liz Bogner PA-C Work Phone: [facility] 10-17-2021 09:03-0400 SaO2% (BldA) [Mass fraction] 98 % Liz Bogner PA-C Work Phone: [facility] 09-12-2021 07:12-0400 Body temperature 97 [degF] Liane Rebolledo APRN.MAINTENANCE DISPATCHER Work Phone: [facility] 09-12-2021 07:12-0400 Body weight 97.98 kg Liane Rebolledo APRN.MAINTENANCE DISPATCHER Work Phone: [facility] 09-12-2021 07:12-0400 Diastolic blood pressure 64 mm[Hg] Liane Rebolledo APRN.MAINTENANCE DISPATCHER Work Phone: [facility] 09-12-2021 07:12-0400 Heart rate 64 /min Liane Rebolledo APRN.MAINTENANCE DISPATCHER Work Phone: [facility] 09-12-2021 07:12-0400 Respiratory rate 16 /min Liane Rebolledo APRN.MAINTENANCE DISPATCHER Work Phone: [facility] 09-12-2021 07:12-0400 SaO2% (BldA) [Mass fraction] 96 % Liane Rebolledo APRN.MAINTENANCE DISPATCHER Work Phone: [facility] 09-12-2021 07:12-0400 Systolic blood pressure 126 mm[Hg] Liane Rebolledo APRN.MAINTENANCE DISPATCHER Work Phone: [facility] Encounters Encounter Date Encounter Type Care Provider Facility Start: 03-10-2025 End: 03-10-2025 ambulatory CHRIS IBARRA Facility:[facility] Start: 01-11-2025 End: 01-11-2025 Follow-up encounter Chris Ibarra MD Work Phone: [facility] [place] Start: 01-08-2025 End: 01-08-2025 ambulatory CHRIS IBARRA Facility:[facility] Start: 12-10-2024 End: 12-10-2024 Telephone encounter Chris Ibarra MD Work Phone: [facility] [place] Comment on above: Patient Question Start: 12-08-2024 End: 12-08-2024 ambulatory CHRIS IBARRA Facility:[facility] Start: 12-08-2024 End: 12-08-2024 Patient encounter procedure Chris Ibarra MD Work Phone: [facility] [place] Comment on above: Medicare annual [facility], subsequent (Primary Dx); Screening for depression; Encounter for screening examination for other mental health and behavioral disorders; Actinic keratosis; Malignant neoplasm of prostate (HCC); BPH with obstruction/lower urinary tract symptoms; Obesity, Class I, BMI 30-34.9; Hypercalcemia; Hypercholesterolemia; Impaired fasting glucose Start: 12-02-2024 End: 12-02-2024 ambulatory MEENA CORRAL Facility:[facility] Start: 11-19-2024 End: 11-19-2024 Refill Meena Corral PA-C Work Phone: Urology Comment on above: Refill Request Start: 07-10-2024 End: 07-10-2024 ambulatory CHRIS IBARRA Facility:[facility] Start: 07-10-2024 End: 07-10-2024 Office outpatient visit 10 minutes Chris Ibarra MD Work Phone: [facility] [place] Comment on above: Impaired fasting glu cose (Primary Dx); Allergic rhinitis, unspecified seasonality, unspecified trigger Start: 07-07-2024 End: 07-07-2024 ambulatory CHRIS IBARRA Facility:[facility] Start: 04-10-2024 End: 04-10-2024 ambulatory CHRIS IBARRA Facility:[facility] Start: 04-10-2024 End: 04-10-2024 Patient encounter procedure Chris Ibarra MD Work Phone: [facility] [place] Comment on above: Impaired fasting glu cose (Primary Dx); Encounter for immunization Start: 04-01-2024 End: 04-01-2024 ambulatory CHRIS IBARRA Facility:[facility] Start: 03-10-2024 End: 03-10-2024 Telephone encounter Chris Ibarra MD Work Phone: [facility] [place] Comment on above: Results Start: 03-08-2024 End: 03-08-2024 Orders Only Chris Ibarra MD Work Phone: [facility] [place] Comment on above: Impaired fasting glu cose (Primary Dx) Start: 03-04-2024 End: 03-04-2024 Patient encounter procedure Meena Corral PA-C Work Phone: Urology Comment on above: Malignant neoplasm o f prostate (HCC) (Primary Dx); BPH with obstruction/lower urinary tract symptoms Start: 12-03-2023 End: 12-03-2023 Patient encounter procedure Chris Ibarra MD Work Phone: [facility] [place] Comment on above: Medicare annual well ness visit, subsequent (Primary Dx); Rash and nonspecific skin eruption; Malignant neoplasm of prostate (HCC); BPH with obstruction/lower urinary tract symptoms; Impaired fasting glucose; Hypercalcemia; Hypercholesterolemia; Need for COVID-19 vaccine Start: 10-11-2023 Refill Chris haro MD Work Phone: [facility] [place] Comment on above: Refill Request Start: 10-02-2023 End: 10-02-2023 Patient encounter procedure Meena Corral PA-C Work Phone: Urology Comment on above: Malignant neoplasm o f prostate (HCC) (Primary Dx); BPH with obstruction/lower urinary tract symptoms Start: 09-24-2023 E-mail encounter shayy gibson caregiver Meena Corral PA-C Work Phone: [facility] Start: 09-24-2023 Patient encounter procedure Meena Corral PA-C Work Phone: Urology Comment on above: Appointment Start: 05-31-2023 End: 05-31-2023 Patient encounter procedure Chris Ibarra MD Work Phone: [facility] [place] Comment on above: Elevated blood press ure reading (Primary Dx); Need for influenza vaccination; Need for COVID-19 vaccine; PSA elevation; Hyperlipidemia, unspecified hyperlipidemia type Start: 05-26-2023 Telephone encounter Jeannie Collins [address] Start: 12-27-2022 End: 12-27-2022 Patient encounter procedure Dorita Gorman APRN.CNP Work Phone: [facility] [place] Comment on above: Cellulitis of right lower extremity (Primary Dx); Rash of hand Start: 12-24-2022 End: 12-24-2022 Patient encounter procedure Jenny Baugh PA-C Work Phone: [facility] Comment on above: Cellulitis of skin ( Primary Dx) Start: 11-29-2022 End: 11-29-2022 Patient encounter procedure Chris Ibarra MD Work Phone: [facility] [place] Comment on above: Medicare annual well ness visit, subsequent (Primary Dx); Need for vaccination; Malignant neoplasm of prostate (HCC); BPH with obstruction/lower urinary tract symptoms; Elevated blood pressure reading; Elevated cholesterol Start: 10-09-2022 Telephone encounter Chris rowland MD Work Phone: [facility] [place] Comment on above: Medication Question Start: 06-08-2022 End: 06-08-2022 Patient encounter procedure Cristi Villarreal DO Work Phone: Urology Comment on above: Malignant neoplasm o f prostate (HCC) (Primary Dx); BPH with obstruction/lower urinary tract symptoms Start: 05-08-2022 Telephone encounter Cristi carnes DO Work Phone: Urology Comment on above: Patient Update Start: 02-24-2022 Telephone encounter Cristi carnes DO Work Phone: Hematology/Oncology Comment on above: Labs Needed before F ollow Up? Start: 11-07-2021 End: 11-07-2021 Patient encounter procedure Chris Ibarra MD Work Phone: [facility] [place] Comment on above: Medicare annual well ness visit, subsequent (Primary Dx); BPH with obstruction/lower urinary tract symptoms; Obesity, Class I, BMI 30-34.9; Need for COVID-19 vaccine Start: 10-17-2021 End: 10-17-2021 Patient encounter procedure Liz Kan PA-C Work Phone: [facility] Comment on above: Rash (Primary Dx) Start: 09-12-2021 End: 09-12-2021 Patient encounter procedure Liane Rebolledo APRN.MAINTENANCE DISPATCHER Work Phone: [facility] Comment on above: Rash (Primary Dx) Procedures Date Procedure Procedure Detail Performing Clinician Start: 12-08-2024 Adult depression scr eening assessment Chris Ibarra MD Work Phone: Start: 03-04-2024 Urnls dip stick/tabl et rgnt auto w/o microscopy Meena Corral PA-C Work Phone: Start: 12-03-2023 PFIZER-BIONTECH COVI D-19 VACCINE ( SEASON) AGE 12+ YR Chris Ibarra MD Work Phone: Start: 12-03-2023 Adult depression scr eening assessment Meena Corral PA-C Work Phone: Start: 11-27-2023 Lipid 1995 panel - S sharif or Plasma Chris Ibarra MD Work Phone: Start: 10-02-2023 Urnls dip stick/tabl et rgnt auto w/o microscopy Meena Corral PA-C Work Phone: Start: 05-31-2023 PFIZER-BIONTECH COVI D-19 VACCINE ( SEASON) AGE 12+ YR Chris Ibarra MD Work Phone: Start: 05-31-2023 INFLUENZA VACCINE, P RSV FREE, AGE 65+ YR, HIGH DOSE, QUADRIVALENT (FLUZONE HIGH-DOSE) Chris Ibarra MD Work Phone: Start: 11-29-2022 PFIZER-BIONTECH COVI D-19 BIVALENT VACCINE, AGE 12+ YR Chris Ibarra MD Work Phone: Start: 06-08-2022 Urnls dip stick/tabl et rgnt auto w/o microscopy Denglou PérezPhilnatalie MULLINS Work Phone: Start: 11-07-2021 PFIZER-BIONTECH COVI D-19 VACCINE, AGE 12+ YR (ROBLES TOP) Chris Ibarra MD Work Phone: Start: 11-07-2021 Adult depression scr eening assessment Chris Ibarra MD Work Phone: Start: 08-01-2021 Colonoscopy Liane Rebolledo APRN.CNP Work Phone: Start: 11-11-2020 Lipid 1996 panel - S sharif or Plasma Chris Ibarra MD Work Phone: Start: 10-21-2020 Adult depression scr eening assessment Liane Rebolledo APRN.MAINTENANCE DISPATCHER Work Phone: Plan of Treatment Date Care Activity Detail Author Start: 11-23-2031 Urine microalbumin profile [facility] Start: 08-01-2031 Colonoscopy COLONOSCOPY [facility] Start: 08-01-2031 COLORECTAL CANCER SCREENING COLORECTAL CANCER SCREENING [facility] Start: 08-01-2031 Screening for malign ant neoplasm of colon [facility] Start: 11-26-2028 Lipid panel Lipid Screening [facility] Start: 01-09-2028 Diabetes Screening Diabetes Screenin g [facility] Start: 07-07-2027 Diabetes Screening Diabetes Screenin g [facility] Start: 04-01-2027 Diabetes Screening Diabetes Screenin g [facility] Start: 02-26-2027 Diabetes Screening Diabetes Screenin g [facility] Start: 11-26-2026 Diabetes Screening Diabetes Screenin g [facility] Start: 12-09-2025 End: 12-09-2025 Patient encounter procedure 12/09/2025 5:20 PM EDT Office Visit [facility] [place] [address] [place] [address] Dorita Lincoln APRN.MAINTENANCE DISPATCHER [address] [place] [address] Annual Medicare Wellness [facility] [place] Comment on above: Annual Medicare Well ness Start: 12-08-2025 Anxiety Screening Anxiety Screening [facility] Start: 12-08-2025 Depression Screening Depression Scre ening [facility] Start: 12-08-2025 Medicare Annual Wellness Visit Medicare Annual Wellness Visit [facility] Start: 11-11-2025 Lipid panel Lipid Screening [facility] Start: 11-11-2025 LIPID SCREEN LIPID SCREEN [facility] Start: 04-10-2025 Covid-19 Vaccine () Covid-19 Vaccine () [facility] Comment on above: Postponed from 02/16 (Declined at this time) Start: 03-10-2025 End: 03-10-2025 Patient encounter procedure 03/10/2025 1:00 PM EDT Office Visit Urology [address] [place], [place] [id number] Meena Corral PA-C [address] [place] [address] 1 YR F/U Urology Comment on above: 1 YR F/U Start: 03-04-2025 End: 06-03-2025 Prostate specific Ag [Mass/volume] in Serum or Plasma PROSTATE-SPECIFIC ANTIGEN DIAGNOSTIC Lab Routine BPH with obstruction/lower urinary tract symptoms Expected: 03/04/2025 (Approximate), Expires: 06/03/2025 [facility] Comment on above: Expected: 03/04/2025 (Approximate), Expires: 06/03/2025 Start: 02-16-2025 Influenza vaccination Influenza Vacc ine (#1) [facility] Start: 12-09-2024 End: 03-10-2025 Comprehensive metabolic 2000 panel - Serum or Plasma COMPREHENSIVE METABOLIC PANEL Lab Routine Impaired fasting glucose Expected: 12/09/2024, Expires: 03/10/2025 [facility] Work Phone: Comment on above: Expected: 12/09/2024 , Expires: 03/10/2025 Start: 12-09-2024 End: 03-10-2025 Hemoglobin A1c in Blood HEMOGLOBIN A1C Lab Routine Impaired fasting glucose Expected: 12/09/2024, Expires: 03/10/2025 [facility] Comment on above: Expected: 12/09/2024 , Expires: 03/10/2025 Start: 12-08-2024 End: 12-08-2024 Patient encounter procedure 12/08/2024 6:00 PM EDT Office Visit [facility] [place] [address] [place], [place] [id number] Chris Ibarra MD [address] [place], [place] [id number] medicare wellness [facility] [place] Comment on above: medicare wellness Start: 12-02-2024 Anxiety Screening Anxiety Screening [facility] Start: 12-02-2024 Depression Screening Depression Scre ening [facility] Start: 12-02-2024 Medicare Annual Wellness Visit Medicare Annual Wellness Visit [facility] Start: 10-01-2024 End: 12-31-2024 Prostate specific Ag [Mass/volume] in Serum or Plasma PROSTATE-SPECIFIC ANTIGEN DIAGNOSTIC Lab Routine Malignant neoplasm of prostate (HCC) Expected: 10/01/2024 (Approximate), Expires: 12/31/2024 [facility] Work Phone: Comment on above: Expected: 10/01/2024 (Approximate), Expires: 12/31/2024 Start: 09-01-2024 End: 12-01-2024 Prostate specific Ag [Mass/volume] in Serum or Plasma PROSTATE-SPECIFIC ANTIGEN DIAGNOSTIC Lab Routine BPH with obstruction/lower urinary tract symptoms Expected: 09/01/2024 (Approximate), Expires: 12/01/2024 [facility] Comment on above: Expected: 09/01/2024 (Approximate), Expires: 12/01/2024 Start: 07-11-2024 End: 10-10-2024 Fasting glucose [Mass/volume] in Serum or Plasma GLUCOSE, FASTING Lab Routine Impaired fasting glucose Expected: 07/11/2024, Expires: 10/10/2024 [facility] Work Phone: Comment on above: Expected: 07/11/2024 , Expires: 10/10/2024 Start: 07-11-2024 End: 10-10-2024 Hemoglobin A1c in Blood HEMOGLOBIN A1C Lab Routine Impaired fasting glucose Expected: 07/11/2024, Expires: 10/10/2024 [facility] Comment on above: Expected: 07/11/2024 , Expires: 10/10/2024 Start: 07-10-2024 End: 07-10-2024 Patient encounter procedure 07/10/2024 5:40 PM EST Office Visit [facility] [place] [address] [facility] [place] [address] Chris Ibarra MD [address] [place] [address] 3 Month F/U-DM [facility] [place] Comment on above: 3 Month F/U-DM Start: 06-18-2024 Advance Directive Discussion Advance Directive Discussion [facility] Start: 04-10-2024 End: 04-10-2024 Patient encounter procedure 04/10/2024 5:20 PM EDT Office Visit Internal Medicine [facility] [address] [place] [address] Chris Ibarra MD [address] [place] [address] follow up elevated blood glucose [facility] [place] Comment on above: follow up elevated b lood glucose Start: 04-02-2024 End: 2024 Prostate specific Ag [Mass/volume] in Serum or Plasma PROSTATE-SPECIFIC ANTIGEN DIAGNOSTIC Lab Routine Malignant neoplasm of prostate (HCC) Expected: 04/02/2024 (Approximate), Expires: 2024 [facility] Work Phone: Comment on above: Expected: 04/02/2024 (Approximate), Expires: 2024 Start: 03-15-2024 End: 06-14-2024 Fasting glucose [Mass/volume] in Serum or Plasma GLUCOSE, FASTING Lab Routine Impaired fasting glucose Expected: 03/15/2024, Expires: 06/14/2024 [facility] Work Phone: Comment on above: Expected: 03/15/2024 , Expires: 06/14/2024 Start: 03-04-2024 End: 06-03-2024 25-hydroxyvitamin D3 [Mass/volume] in Serum or Plasma VITAMIN D 25 HYDROXY Lab Routine Hypercalcemia Expected: 03/04/2024, Expires: 06/03/2024 [facility] Comment on above: Expected: 03/04/2024 , Expires: 06/03/2024 Start: 03-04-2024 End: 06-03-2024 Basic metabolic 2000 panel - Serum or Plasma BASIC METABOLIC PANEL Lab Routine Impaired fasting glucose Expected: 03/04/2024, Expires: 06/03/2024 [facility] Work Phone: Comment on above: Expected: 03/04/2024 , Expires: 06/03/2024 Start: 03-04-2024 End: 06-03-2024 CBC panel - Blood by Automated count COMPLETE BLOOD COUNT Lab Routine Hypercalcemia Expected: 03/04/2024, Expires: 06/03/2024 [facility] Comment on above: Expected: 03/04/2024 , Expires: 06/03/2024 Start: 03-04-2024 End: 06-03-2024 Hemoglobin A1c in Blood HEMOGLOBIN A1C Lab Routine Impaired fasting glucose Expected: 03/04/2024, Expires: 06/03/2024 [facility] Comment on above: Expected: 03/04/2024 , Expires: 06/03/2024 Start: 03-04-2024 End: 06-03-2024 Parathyrin.intact [Mass/volume] in Serum or Plasma PTH INTACT Lab Routine Hypercalcemia Expected: 03/04/2024, Expires: 06/03/2024 [facility] Comment on above: Expected: 03/04/2024 , Expires: 06/03/2024 Start: 03-04-2024 End: 03-04-2024 Patient encounter procedure 03/04/2024 1:00 PM EDT Office Visit Urology [address] [place], [place] [id number] Meena Corral PA-C [address] [place] [address] 5 MTH F/U BPH/ LUTS PSA 1 [facility] Comment on above: 5 MTH F/U BPH/ LUTS PSA 1 [facility] Start: 02-17-2024 Covid-19 Vaccine ( season) Covid-19 Vaccine ( season) [facility] Start: 02-17-2024 Influenza vaccination Influenza Vacc ine (#1) [facility] Start: 12-03-2023 End: 12-03-2023 Patient encounter procedure 12/03/2023 6:20 PM EDT Office Visit [facility] [place] [address] [place], [place] [id number] Chris Ibarra MD [address] [place], [place] [address] 6 month F/U [facility] [place] Comment on above: 6 month F/U Start: 11-30-2023 End: 02-29-2024 Basic metabolic 2000 panel - Serum or Plasma BASIC METABOLIC PNL Lab Routine Elevated blood pressure reading Expected: 11/30/2023, Expires: 02/29/2024 [facility] Work Phone: Comment on above: Expected: 11/30/2023 , Expires: 02/29/2024 Start: 11-30-2023 End: 02-29-2024 Lipid 1996 panel - Serum or Plasma LIPID PANEL BASIC Lab Routine Hyperlipidemia, unspecified hyperlipidemia type Expected: 11/30/2023, Expires: 02/29/2024 [facility] Work Phone: Comment on above: Expected: 11/30/2023 , Expires: 02/29/2024 Start: 11-30-2023 End: 02-29-2024 Prostate specific Ag [Mass/volume] in Serum or Plasma PSA/PROSTSPECAG DIAG Lab Routine PSA elevation Expected: 11/30/2023, Expires: 02/29/2024 [facility] Work Phone: Comment on above: Expected: 11/30/2023 , Expires: 02/29/2024 Start: 11-30-2023 End: 11-30-2023 Patient encounter procedure 11/30/2023 9:20 AM EDT Office Visit Internal Medicine [facility] [address] [place], [place] [id number] Chris Ibarra MD [address] [place] [address] 6 month F/U [facility] Comment on above: 6 month F/U Start: 11-12-2023 DIABETES SCREEN DIABETES SCREEN [facility] Start: 11-12-2023 Diabetes Screening Diabetes Screenin g [facility] Start: 09-30-2023 Covid-19 Vaccine () Covid-19 Vaccine () [facility] Start: 2023 RSV Vaccine (1 - 1-d ose 75+ series) RSV Vaccine (1 - 1-dose 75+ series) [facility] Start: 06-18-2023 Advance Directive Discussion Advance Directive Discussion [facility] Start: 01-01-2024 Behavioral Health Screening Behavioral Health Screening [facility] Start: 03-31-2023 COVID-19 VACCINE (6 - Moderna series) COVID-19 VACCINE (6 - Moderna series) [facility] Start: 02-16-2023 Influenza vaccination C [facility] Start: 11-30-2022 End: 01-30-2023 Basic metabolic 2000 panel - Serum or Plasma BASIC METABOLIC PNL Lab Routine Elevated blood pressure reading Expected: 11/30/2022, Expires: 01/30/2023 [facility] Work Phone: Comment on above: Expected: 11/30/2022 , Expires: 01/30/2023 Start: 11-30-2022 End: 01-30-2023 Lipid 1996 panel - Serum or Plasma LIPID PANEL BASIC Lab Routine Elevated cholesterol Expected: 11/30/2022, Expires: 01/30/2023 [facility] Work Phone: Comment on above: Expected: 11/30/2022 , Expires: 01/30/2023 Start: 11-07-2022 Adult depression screening assessment DEPRESSION SCREENING [facility] Start: 06-18-2022 ADVANCE DIRECTIVE DISCUSSION ADVANCE DIRECTIVE DISCUSSION [facility] Start: 06-18-2022 DEPRESSION ASSESSMENT DEPRESSION ASS ESSMENT [facility] Start: 06-08-2022 End: 08-08-2022 Prostate specific Ag [Mass/volume] in Serum or Plasma PSA/PROSTSPECAG DIAG Lab Routine BPH with obstruction/lower urinary tract symptoms Malignant neoplasm of prostate (HCC) Expected: 06/08/2022, Expires: 08/08/2022 [facility] Work Phone: Comment on above: Expected: 06/08/2022 , Expires: 08/08/2022 Start: 05-29-2022 End: 07-29-2022 Prostate specific Ag [Mass/volume] in Serum or Plasma PSA/PROSTSPECAG DIAG Lab Routine Elevated PSA Expected: 05/29/2022, Expires: 07/29/2022 [facility] Work Phone: Comment on above: Expected: 05/29/2022 , Expires: 07/29/2022 Start: 02-16-2022 Influenza vaccination INFLUENZA (#1) [facility] Start: 01-02-2022 COVID-19 VACCINE (5 - Booster for Moderna series) COVID-19 VACCINE (5 - Booster for Moderna series) [facility] Start: 10-21-2021 Adult depression screening assessment DEPRESSION SCREENING [facility] Start: 06-18-2021 ADVANCE DIRECTIVE DISCUSSION ADVANCE DIRECTIVE DISCUSSION [facility] Start: 06-18-2021 DEPRESSION ASSESSMENT DEPRESSION ASS ESSMENT [facility] Start: 10-04-2015 SHINGRIX VACCINE (2 of 3) SHINGRIX VACCINE (2 of 3) [facility] Start: 10-22-2014 PNEUMOCOCCAL: 65+ (2 - PCV) PNEUMOCOCCAL: 65+ (2 - PCV) [facility] Start: 2008 RSV Vaccine (1 - 1-d ose 60+ series) RSV Vaccine (1 - 1-dose 60+ series) [facility] Start: 1993 COLOGUARD (FIT-DNA) COLOGUARD (FIT-D NA) [facility] Start: [address] COLONOGRAPHY [facility] Start: 1993 FECAL OCCULT BLOOD FECAL OCCULT BLOO D [facility] Start: 1993 Screening for malign ant neoplasm of colon [facility] Start: 1993 SIGMOIDOSCOPY SIGMOIDOSCOPY [facility] Start: 1967 Urine microalbumin profile DTAP,TDAP,TD (1 - Tdap) [facility] POST VOID RESIDUAL POST VOID RES IDUAL Procedures Routine BPH with obstruction/lower urinary tract symptoms Malignant neoplasm of prostate (HCC) Ordered: 10/02/2023 [facility] Work Phone: Comment on above: Ordered: 10/02/2023 POST VOID RESIDUAL POST VOID RES IDUAL Procedures Routine BPH with obstruction/lower urinary tract symptoms Ordered: 03/04/2024 [facility] Work Phone: Comment on above: Ordered: 03/04/2024 [facility] Immunizations Immunization Date Immunization Notes Care Provider Fa cili 04-10-2024 influenza, high dose seasonal, preservative-free Chris Ibarra MD Work Phone: [facility] 04-10-2024 influenza virus vacc ine, unspecified formulation Chris Ibarra MD Work Phone: [facility] 12-03-2023 COVID-19 vaccine, ag e 12+ yr, season ([employer]) Chris Ibarra MD Work Phone: [facility] 05-31-2023 COVID-19 vaccine, ag e 12+ yr, season ([employer]) Chris Ibarra MD Work Phone: [facility] 05-31-2023 influenza (HD-IIV4) vaccine, age 65+ yr, high dose, quadrivalent, PF (FLUZONE HIGH-DOSE) Chris Ibarra MD Work Phone: [facility] 05-31-2023 influenza virus vacc ine, unspecified formulation Meena Corral PA-C Work Phone: [facility] 11-29-2022 COVID-19 vaccine, ag e 12+ yr, bivalent ([employer]) Chris Ibarra MD Work Phone: [facility] Work Phone: 11-29-2022 pneumococcal (PCV20) vaccine, 20 valent (PREVNAR 20) Chris Ibarra MD Work Phone: [facility] Work Phone: 11-29-2022 pneumococcal Conjuga te, unspecified formulation Chris Ibarra MD Work Phone: [facility] Work Phone: 07-16-2022 zoster vaccine recombinant Chris Ibarra MD Work Phone: [facility] Work Phone: 02-04-2022 zoster vaccine recombinant Chris Ibarra MD Work Phone: [facility] Work Phone: 11-22-2021 tetanus toxoid, redu stefania diphtheria toxoid, and acellular pertussis vaccine, adsorbed Cristi Villarreal DO Work Phone: [facility] Work Phone: 11-07-2021 COVID-19 vaccine, ag e 12+ yr ([employer] [facility]) Chris Ibarra MD Work Phone: [facility] Work Phone: 06-30-2021 influenza, high-dose , quadrivalent vaccine (FLUZONE HIGH DOSE QUADRIVALENT) Liane Rebolledo APRN.MAINTENANCE DISPATCHER Work Phone: [facility] Work Phone: 10-07-2020 COVID-19 vaccine, fu ll dose (MODERNA) Liane Rebolledo APRN.MAINTENANCE DISPATCHER Work Phone: [facility] Work Phone: 09-09-2020 COVID-19 vaccine, fu ll dose (MODERNA) Liane Rebolledo APRN.[facility] Work Phone: [facility] Work Phone: 04-03-2020 Seasonal, quadrivale nt, recombinant, injectable influenza vaccine, preservative free Liane Rebolledo APRN.[facility] Work Phone: [facility] Work Phone: 03-29-2019 influenza, high dose seasonal, preservative-free Liane Rebolledo APRN.MAINTENANCE DISPATCHER Work Phone: [facility] 04-01-2018 influenza, high dose seasonal, preservative-free Liane Amaury SPORTS PHYSIOTHERAPIST.MAINTENANCE DISPATCHER Work Phone: [facility] Work Phone: 03-27-2017 influenza, high dose seasonal, preservative-free Liane Amaury SPORTS PHYSIOTHERAPIST.MAINTENANCE DISPATCHER Work Phone: [facility] 04-08-2016 influenza, high dose seasonal, preservative-free Liane Amaury SPORTS PHYSIOTHERAPIST.MAINTENANCE DISPATCHER Work Phone: [facility] 08-09-2015 zoster vaccine, live Dominiq ue Amaury VALENZUELA.MAINTENANCE DISPATCHER Work Phone: [facility] Work Phone: 04-26-2015 pneumococcal conjuga te vaccine, 13 valent Chris Ibarra MD Work Phone: [facility] 03-18-2015 influenza nasal, unspecified formulation Chris Ibarra MD Work Phone: [facility] 03-18-2015 influenza virus vacc ine, unspecified formulation Chris Ibarra MD Work Phone: [facility] 10-22-2013 pneumococcal polysaccharide vaccine, 23 valent Liane Rebolledo SPORTS PHYSIOTHERAPIST.MAINTENANCE DISPATCHER Work Phone: [facility] 03-23-2011 influenza virus vacc ine, unspecified formulation Liane James SPORTS PHYSIOTHERAPIST.MAINTENANCE DISPATCHER Work Phone: [facility] Work Phone: 04-05-2009 influenza virus vacc ine, unspecified formulation Liane James SPORTS PHYSIOTHERAPIST.MAINTENANCE DISPATCHER Work Phone: [facility] Work Phone: 05-02-2008 influenza virus vacc ine, unspecified formulation Liane Rebolledo SPORTS PHYSIOTHERAPIST.MAINTENANCE DISPATCHER Work Phone: [facility] Work Phone: 04-24-2007 influenza virus vacc ine, unspecified formulation Liane James SPORTS PHYSIOTHERAPIST.MAINTENANCE DISPATCHER Work Phone: [facility] Work Phone: Payers Date Payer Category Payer Government (not [facility] or Medicaid) [facility] [id number] 2013 Medicare MEDICARE MEDICAR E A AND B [id number] 2013-Present [phone] [address] [address] [place] [address] Medicare [id number] 2013 Medicare [id number] 2013 Unknown FOR LIFE [id number] 2013-Present [phone] [address] [place] [address] Indemnity [id number] 2013 Unknown FOR LIFE [id number] 2013-Present [phone] [address] [place] [address] Indemnity [id number] 2013 [employer] ( and others) [id number] 2013 Medicare [id number] Social History Date Type Detail Facility Start: 07-23-2017 End: 06-08-2022 Tobacco smoking status NHIS Never smoked tobacco [facility] Work Phone: Start: 09-12-2021 End: 07-10-2024 Alcohol intake Current drinker of alcohol (finding) [facility] Start: 09-12-2021 End: 2022 Alcohol intake [facility] Work Phone: Start: 06-30-2021 End: 11-29-2022 History SDOH Alcohol Frequency 3 [facility] Start: 06-30-2021 End: 11-29-2022 History SDOH Alcohol Std Drinks 1 [facility] Start: 1950 Sex Assigned At Male [facility] Start: 09-02-2021 End: 11-07-2021 Exposure to SARS-CoV-2 (event) Not sure [facility] Work Phone: Start: 11-07-2021 End: 11-29-2022 History SDOH Physical Activity DPW 0 [facility] Start: 07-23-2017 End: 06-08-2022 Tobacco use and exposure Smokeless tobacco non-user [facility] Start: 2022 End: 11-29-2022 Alcohol Use Disorder Identification Test - Consumption [AUDIT-C] [facility] Work Phone: How often to you hav e a drink containing alcohol? 2-4 times a month [facility] Work Phone: How many standard dr inks containing alcohol do you have on a typical day? 1 or 2 [facility] Work Phone: How often do you hav e 6 or more drinks on 1 occasion? Never [facility] Work Phone: Adult Depression Scr eening Assessment 0 [facility] Work Phone: Do you feel stress - tense, restless, nervous, or anxious, or unable to sleep at night because your mind is troubled all the time - these days [OSQ] Not at all [facility] Work Phone: Start: 01-08-2019 Gender identity Identifies as male gender (finding) [facility] How often to you hav e a drink containing alcohol? 2-3 time sa week [facility] Functional Status Date Assessment Result Facility 12-08-2024 Total score [AUDIT-C] 3 12/09/19 25 6:15 PM Chris Jasso MD [facility] 08-22-2014 Are you deaf, or do you have serious difficulty hearing No 08/22/2014 8:31 AM Ester Olmedo LPN No [facility] 08-22-2014 Are you blind, or do you have serious difficulty seeing, even when wearing glasses No 08/22/2014 8:31 AM Ester Olmedo LPN No [facility] 08-22-2014 Do you have serious difficulty walking or climbing stairs No 08/22/2014 8:31 AM Ester Olmedo LPN No [facility] 08-22-2014 Do you have difficul ty dressing or bathing No 08/22/2014 8:31 AM Ester Olmedo LPN No [facility] 08-22-2014 Because of a physica l, mental, or emotional condition, do you have difficulty doing errands alone such as visiting a physician's office or shopping No 08/22/2014 8:31 AM Ester Olmedo LPN No [facility] Mental Status Date Assessment Result Facility 08-22-2014 Because of a physica l, mental, or emotional condition, do you have serious difficulty concentrating, remembering, or making decisions No 08/22/2014 8:31 AM Ester Olmedo LPN No [facility] Clinical Notes 2018 to 03-10-2025 Chris Ibarra MD - 12/13/2024 9:54 AM Chris Macdonald MD - 12/08/2024 6:19 PM EDTTelephone Encounter - Kristi Wilkerson RN - 12/10/2024 11:44 AM EDTPatient Instructions Note Date & Type Note Facility 03-10-2025 Note HNO ID: [id number] Author: MEENA CORRAL PA-C Service: ? Author Type: Physician Community Development Technician Type: Progress Notes Filed: 03/10/2025 14:30 Note Text: [facility] PATIENT CLINIC NOTE (M) Some elements copied from his previous note, which have been updated where appropriate, and all reflect current medical decision making from date of this visit. Note was generated by [employer] and edited as appropriate SERVICE DATE: March 10, 2025 NAME: Vitor Saxnea GENDER: male CHIEF COMPLAINT: The patient is a 74-year-old male with prostate cancer on active surveillance, presenting for routine PSA monitoring. HISTORY OF PRESENT ILLNESS: The patient is a 74-year-old male with prostate cancer on active surveillance, presenting for routine PSA monitoring. Prostate Cancer: - Currently on active surveillance. - Last biopsy in 2007. - Recent PSA levels: 5.87 ng/mL, decreased to 5.1 ng/mL. - Highest recorded PSA was 5.1 ng/mL, 7 years ago. - Denies urinary issues. - Taking Proscar, refilled in November for one year. Weight Loss: - Lost approximately 40 lbs intentionally. LABS: PSA (ng/mL) Date Value 12/02/2024 5.10 04/01/2024 5.87 11/27/2023 4.64 01/22/2020 3.94 12/28/2018 4.28 03/05/2018 5.17 Creatinine Date Value Ref Range Status 01/08/2025 0.86 0.73 - 1.22 mg/dL Final 02/27/2024 0.94 0.73 - 1.22 mg/dL Final 11/27/2023 0.96 0.73 - 1.22 mg/dL Final No results found for: TESTOST Hematocrit (%) Date Value 02/27/2024 47.0 11/11/2020 47.0 10/10/2013 44.4 PSA (ng/mL) Date Value 12/02/2024 5.10 04/01/2024 5.87 11/27/2023 4.64 01/22/2020 3.94 12/28/2018 4.28 03/05/2018 5.17 MEDICATIONS: finasteride (PROSCAR) 5 mg tablet Take 1 tablet by mouth once daily. fexofenadine (MARITZA) 180 mg tablet Take 1 tablet by mouth once daily. triamcinolone acetonide (KENALOG) 0.1 % cream Apply 1 application to affected area three times a day. Apply sparingly to area for rash/itching. ascorbic acid (VITAMIN C ORAL) Take 1 tablet by mouth once daily. Unknown dosage cyanocobalamin (VITAMIN B-12) 1,000 mcg tab Take 1,000 mcg by mouth once daily. cholecalciferol (VITAMIN D3) 1,000 unit tab tablet Take 3,000 Units by mouth once daily. 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 Oral cavity, oropharynx clear Neck: Supple, no mass Breast: Deferred Respiratory: Clear to auscultation, bilaterally Cardiovascular: Regular rate and rhythm, no murmurs, rubs, or gallops Abdomen: Soft, non-tender, non-distended, no masses palpable, no hepatosplenomegaly, normal bowel sounds Genitourinary: Deferred MSK: Back is non-tender Extremities: No clubbing, cyanosis, or edema PROBLEM LIST REVIEW: Yes LABS: Results for orders placed or performed in visit on 03/10/25 UA DIP, URINE (POC) Result Value Ref Range GLUCOSE UA (POCT) Negative Negative mg/dL BILIRUBIN UA (POCT) Negative Negative KETONE UA (POCT) Negative Negative mg/dL SPECIFIC GRAVITY UA (POCT) 1.020 1.005 - 1.030 HEMOGLOBIN/BLOOD UA (POCT) Negative Negative PH UA (POCT) 5.5 4.5 - 8.0 PROTEIN UA (POCT) Negative Negative mg/dL UROBILINOGEN UA (POCT) 0.2 Normal E.U./dL NITRITE UA (POCT) Negative Negative LEUKOCYTES UA (POCT) Negative Negative COLOR UA (POCT) Yellow CLARITY UA (POCT) Clear ASSESSMENT/PLAN: 1. Malignant neoplasm of prostate (HCC) (C61) - Under active surveillance. Recent PSA levels show stability with a slight increase to 5.87 ng/mL followed by a decrease to 5.1 ng/mL; levels have been as high as 5.1 ng/mL over the past 7 years. Last biopsy was in 2007. No urinary symptoms or issues reported. Continues on Proscar, refilled in November for one year. Ordered PSA tests for 6 months and 1 year intervals. Scheduled follow-up in one year. > 1 year Appt w/ BPAULA Cuellar, [place], PAJeraldC with PSA prior Patient Instructions (AVS) - printed for patient - Continue taking ProScar (finasteride) as prescribed; your refill from November covers you for one year. - Have PSA blood tests in 6 months and again in 12 months as ordered. - After your annual (12-month) PSA test, schedule your one-year follow-up visit. - If you need a singletrain, let me know. (more content not included)... [facility] 12-13-2024 Note HNO ID: [id number] Author: CHRIS IBARRA MD Service: ? Author Type: Physician Type: Progress Notes Filed: 12/13/2024 10:31 Note Text: This note was created using LSAT Freedomriter. Subjective Vitor Saxena is a 74 year old male. He was doing reasonably well. His BPH was controlled, and prostate cancer was under surveillance. Review of Systems Constitutional: Negative for fatigue. HENT: Negative for congestion. Respiratory: Negative for cough and shortness of breath. Cardiovascular: Negative for chest pain, palpitations and leg swelling. Genitourinary: Negative for difficulty urinating and dysuria. ACTIVE PROBLEM LIST Bph With Obstruction/Lower Urinary Tract Symptoms Malignant Neoplasm of Prostate (Hcc) Obesity, Class I, Bmi 30-34.9 Allergic Rhinitis Hypercholesterolemia Hypercalcemia Impaired Fasting Glucose Actinic Keratosis Social History Tobacco Use Smoking status: Never Smokeless tobacco: Never Vaping Use Vaping status: Never Used Substance Use Topics Alcohol use: Yes Alcohol/week: 2.0 standard drinks of alcohol Types: 2 Cans of Beer (12oz) per week Drug use: Never Current Outpatient Medications Medication Sig finasteride (PROSCAR) 5 mg tablet Take 1 tablet by mouth once daily. fexofenadine (MARITZA) 180 mg tablet Take 1 tablet by mouth once daily. triamcinolone acetonide (KENALOG) 0.1 % cream Apply 1 application to affected area three times a day. Apply sparingly to area for rash/itching. ascorbic acid (VITAMIN C ORAL) Take 1 tablet by mouth once daily. Unknown dosage cyanocobalamin (VITAMIN B-12) 1,000 mcg tab Take 1,000 mcg by mouth once daily. cholecalciferol (VITAMIN D3) 1,000 unit tab tablet Take 3,000 Units by mouth once daily. No current facility-administered medications for this visit. Objective BP 130/74 Pulse (!) 58 Ht 175.3 cm (5' 9) Wt 90.6 kg (199 lb 11.8 oz) BMI 29.50 kg/m? Physical Exam Constitutional: General: He is not in acute distress. HENT: Head: Normocephalic. Cardiovascular: Rate and Rhythm: Normal rate. Heart sounds: No murmur heard. No gallop. Pulmonary: Breath sounds: Normal breath sounds. Abdominal: Tenderness: There is no abdominal tenderness. Musculoskeletal: Right lower leg: No edema. Left lower leg: No edema. Skin: Comments: Actinic changes. Neurological: Mental Status: He is alert. Gait: Gait normal. Assessment and Plan 1. Medicare annual wellness visit, subsequent - ICD9: V70.0, ICD10: Z00.00 (primary diagnosis) - see wellness. 2. Screening for depression - ICD9: V79.0, ICD10: Z13.31 - DEPRESSION SCREENING 3. Encounter for screening examination for other mental health and behavioral disorders - ICD9: V79.8, ICD10: Z13.39 - ANXIETY SCREENING 4. Actinic keratosis - ICD9: 702.0, ICD10: L57.0 - CONSULT TO DERMATOLOGY 5. Malignant neoplasm of prostate (HCC) - ICD9: 185, ICD10: C61 - Continue active surveillance per urology. 6. BPH with obstruction/lower urinary tract symptoms - ICD9: 600.01, 599.69, ICD10: N40.1, N13.8 - Controlled. Continue medication. 7. Obesity, Class I, BMI 30-34.9 - ICD9: 278.00, ICD10: E66.811 Stable 8. Hypercalcemia - ICD9: 275.42, ICD10: E83.52 - Monitor. 9. Hypercholesterolemia - ICD9: 272.0, ICD10: E78.00 - Diet controlled. 10. Impaired fasting glucose - ICD9: 790.21, ICD10: R73.01 - Low carb diet. - COMPREHENSIVE METABOLIC PANEL - HEMOGLOBIN A1C Chris Ibarra MD [facility] 12-13-2024 History of Present illness Narrative This note was created using LSAT Freedomriter. Subjective Vitor Saxena is a 74 year old male. He was doing reasonably well. His BPH was controlled, and prostate cancer was under surveillance. Review of Systems Constitutional: Negative for fatigue. HENT: Negative for congestion. Respiratory: Negative for cough and shortness of breath. Cardiovascular: Negative for chest pain, palpitations and leg swelling. Genitourinary: Negative for difficulty urinating and dysuria. ACTIVE PROBLEM LIST Bph With Obstruction/Lower Urinary Tract Symptoms Malignant Neoplasm of Prostate (Hcc) Obesity, Class I, Bmi 30-34.9 Allergic Rhinitis Hypercholesterolemia Hypercalcemia Impaired Fasting Glucose Actinic Keratosis Social History Tobacco Use Smoking status: Never Smokeless tobacco: Never Vaping Use Vaping status: Never Used Substance Use Topics Alcohol use: Yes Alcohol/week: 2.0 standard drinks of alcohol Types: 2 Cans of Beer (12oz) per week Drug use: Never Current Outpatient Medications Medication Sig finasteride (PROSCAR) 5 mg tablet Take 1 tablet by mouth once daily. fexofenadine (MARITZA) 180 mg tablet Take 1 tablet by mouth once daily. triamcinolone acetonide (KENALOG) 0.1 % cream Apply 1 application to affected area three times a day. Apply sparingly to area for rash/itching. ascorbic acid (VITAMIN C ORAL) Take 1 tablet by mouth once daily. Unknown dosage cyanocobalamin (VITAMIN B-12) 1,000 mcg tab Take 1,000 mcg by mouth once daily. cholecalciferol (VITAMIN D3) 1,000 unit tab tablet Take 3,000 Units by mouth once daily. No current facility-administered medications for this visit. Objective BP 130/74 Pulse (!) 58 Ht 175.3 cm (5' 9) Wt 90.6 kg (199 lb 11.8 oz) BMI 29.50 kg/m Physical Exam Constitutional: General: He is not in acute distress. HENT: Head: Normocephalic. Cardiovascular: Rate and Rhythm: Normal rate. Heart sounds: No murmur heard. No gallop. Pulmonary: Breath sounds: Normal breath sounds. Abdominal: Tenderness: There is no abdominal tenderness. Musculoskeletal: Right lower leg: No edema. Left lower leg: No edema. Skin: Comments: Actinic changes. Neurological: Mental Status: He is alert. Gait: Gait normal. Assessment and Plan 1. Medicare annual wellness visit, subsequent - ICD9: V70.0, ICD10: Z00.00 (primary diagnosis) - see wellness. 2. Screening for depression - ICD9: V79.0, ICD10: Z13.31 - DEPRESSION SCREENING 3. Encounter for screening examination for other mental health and behavioral disorders - ICD9: V79.8, ICD10: Z13.39 - ANXIETY SCREENING 4. Actinic keratosis - ICD9: 702.0, ICD10: L57.0 - CONSULT TO DERMATOLOGY 5. Malignant neoplasm of prostate (HCC) - ICD9: 185, ICD10: C61 - Continue active surveillance per urology. 6. BPH with obstruction/lower urinary tract symptoms - ICD9: 600.01, 599.69, ICD10: N40.1, N13.8 - Controlled. Continue medication. 7. Obesity, Class I, BMI 30-34.9 - ICD9: 278.00, ICD10: E66.811 Stable 8. Hypercalcemia - ICD9: 275.42, ICD10: E83.52 - Monitor. 9. Hypercholesterolemia - ICD9: 272.0, ICD10: E78.00 - Diet controlled. 10. Impaired fasting glucose - ICD9: 790.21, ICD10: R73.01 - Low carb diet. - COMPREHENSIVE METABOLIC PANEL - HEMOGLOBIN A1C Chris Ibarra MD Images from the original note were not included. Vitor Saxena is a 74 year old male here for a Medicare wellness visit. Medicare Health Risk Assessment General Health Very good Exercise: Minutes/Day 10 min Exercise: Days/Week 5 days Alcohol: Daily Use 2-3 times a week Alcohol: Drinks/Day 1 or 2 Alcohol: 6 or more drinks Never Feel off balance No Concerns: Teeth/Dentures Yes Concerns: Sexual function No Troubled by feelings None of the above Frequency: Eating healthy diet Nearly every day ADLs requiring help None of the above Safety precautions in home/vehicle Yes Smoke, vape, chews tobacco No Difficulty hearing Yes Difficulty seeing No Current Providers Specialists: I have reviewed specialist-related care of the patient in the medical record. Current care team: Patient Care Team: Chris Ibarra MD as PCP - General (Internal Medicine) Dorita Lincoln APRN.MAINTENANCE DISPATCHER as Cushion Assembler (Internal Medicine) Meena Corral PA-C (Urology) Outside specialists seen: [facility]. Medical/Family history review Reviewed and updated problem list, medical/surgical/family/social history, medications, and allergies. Opioid use review Opioid Medications (last 90 days) No data to display Anxiety/Depression screening PHQ-2 Score: 0 (Lower risk for depression) ELMA-2 Score: 0 (Lower risk for anxiety) Recommendation: no further intervention at this time Cognitive screening Mini Cog Score: 2 Cognitive screening reviewed and No further action needed (score 3-5). Functional Observation Was the patient's Timed Up & Go test unsteady or >= 12 seconds? No Advance Care Planning Patient did not wish or was not able to name a surrogate decision maker or provide an advance care plan Measurements BP 130/74 Pulse (!) 58 Ht 175.3 cm (5' 9) Wt 90.6 kg (199 lb 11.8 oz) BMI 29.50 kg/m Vision Screening: Follows with optometry/ophthalmology Right: 2050 Left: 20 50 Both: 50 Assessment/Plan Medicare annual wellness visit, subsequent (Z00.00) - Counseled on healthy diet and regular exercise - Fall avoidance information provided - Personalized prevention plan provided - Discussed need for and benefit of weight loss. BMI 29.50 kg/(m^2) documented in this encounter [facility] 12-10-2024 Telephone encounter Note Pt's called in and reports providers office had wanted Pt to see dermatology, and Pt had told them [facility], but she states Pt goes to [facility]. I told her then he ginger just need to go see them. I will fax order to them, faxed to [phone]. She was asking about lab orders. I told her I would need Pt's permission to give her medical information. She states he will not be happy. I asked if he was with her, and she said no he is at work. I told her she is just an emergency contact, it doesn't have in his chart that we can give her medical information. Called Pt and updated that we can give medical information. Le Pt know to come in and get lab work done whenever he can, and Iet him know I sent the dermatology order [facility]. Kristi Wilkerson RN [facility] 12-10-2024 Miscellaneous Notes Pt's called in and reports providers office had wanted Pt to see dermatology, and Pt had told them [facility], but she states Pt goes to [facility]. I told her then he ginger just need to go see them. I will fax order to them, faxed to [phone]. She was asking about lab orders. I told her I would need Pt's permission to give her medical information. She states he will not be happy. I asked if he was with her, and she said no he is at work. I told her she is just an emergency contact, it doesn't have in his chart that we can give her medical information. Called Pt and updated that we can give medical information. Le Pt know to come in and get lab work done whenever he can, and Iet him know I sent the dermatology order [facility]. Kristi Wilkerson RN documented in this encounter [facility] 12-08-2024 Instructions Chris Ibarra MD - 12/08/2024 6:32 PM EDT Screening schedule The following prevention plan is recommended: Advance Directive Discussion due on 06/18/2024 Medicare Annual Wellness Visit due on 12/02/2024 Depression Screening due on 12/02/2024 Anxiety Screening due on 12/02/2024 WHAT YOU CAN DO TO PREVENT FALLS Many falls can be prevented. By making some changes, you can lower your chances of falling. Four things YOU can do to prevent falls for you* and your caregiver 1. Begin a regular exercise program Exercise is one of the most important ways to lower your chances of falling. It makes you stronger and helps you feel better. Exercises that improve balance and coordination (like August Chi) are the most helpful. Lack of exercise leads to weakness and increases your chances of falling. Ask your doctor or health care provider about the best type of exercise program for you. 2. Have your health care provider review your medicines Have your doctor or pharmacist review all the medicines you take, even [id number] medicines. As you get older, the way medicines work in your body can change. Some medicines, or combinations of medicines, can make you sleepy or dizzy and can cause you to fall. 3. Have your vision checked Have your eyes checked by an eye doctor at least once a year. You may be wearing the wrong glasses or have a condition like glaucoma or cataracts that limits your vision. Poor vision can increase your chances of falling. 4. Make your home safer About half of all falls happen at home. To make your home safer: Remove things you can trip over (like papers, books, clothes, and shoes) from stairs and places where you walk. Remove small throw rugs or use double-sided tape to keep the rugs from slipping. Keep items you use often in cabinets you can reach easily without using a step stool. Have grab bars put in next to your toilet and in the tub or shower. Use non-slip mats in the bathtub and on shower floors. Improve the lighting in your home. As you get older, you need brighter lights to see well. Hang light-weight curtains or shades to reduce glare. Have handrails and lights put in on all staircases. Wear shoes both inside and outside the house. Avoid going barefoot or wearing slippers. For more information, contact: Centers for Disease Control and Prevention www.cdc.gov/injury * This information may not apply if you have certain medical conditions. documented in this encounter [facility] 12-08-2024 Note HNO ID: [id number] Author: CHRIS IBARRA MD Service: ? Author Type: Physician Type: Progress Notes Filed: 12/13/2024 10:31 Note Text: Vitor Saxena is a 74 year old male here for a Medicare wellness visit. Medicare Health Risk Assessment General Health Very good Exercise: Minutes/Day 10 min Exercise: Days/Week 5 days Alcohol: Daily Use 2-3 times a week Alcohol: Drinks/Day 1 or 2 Alcohol: 6 or more drinks Never Feel off balance No Concerns: Teeth/Dentures Yes Concerns: Sexual function No Troubled by feelings None of the above Frequency: Eating healthy diet Nearly every day ADLs requiring help None of the above Safety precautions in home/vehicle Yes Smoke, vape, chews tobacco No Difficulty hearing Yes Difficulty seeing No Current Providers Specialists: I have reviewed specialist-related care of the patient in the medical record. Current care team: Patient Care Team: Chris Ibarra MD as PCP - General (Internal Medicine) Dorita Lincoln, NICOLAS.MAINTENANCE DISPATCHER as Cushion Assembler (Internal Medicine) Meena Corral PA-C (Urology) Outside specialists seen: [facility]. Medical/Family history review Reviewed and updated problem list, medical/surgical/family/social history, medications, and allergies. Opioid use review Opioid Medications (last 90 days) No data to display Anxiety/Depression screening PHQ-2 Score: 0 (Lower risk for depression) ELMA-2 Score: 0 (Lower risk for anxiety) Recommendation: no further intervention at this time Cognitive screening Mini Cog Score: 2 Cognitive screening reviewed and No further action needed (score 3-5). Functional Observation Was the patient's Timed Up AND Go test unsteady or >= 12 seconds? No Advance Care Planning Patient did not wish or was not able to name a surrogate decision maker or provide an advance care plan Measurements BP 130/74 Pulse (!) 58 Ht 175.3 cm (5' 9) Wt 90.6 kg (199 lb 11.8 oz) BMI 29.50 kg/m? Vision Screening: Follows with optometry/ophthalmology Right: 20/50 Left: 20/ 50 Both: 20/50 Assessment/Plan Medicare annual wellness visit, subsequent (Z00.00) - Counseled on healthy diet and regular exercise - Fall avoidance information provided - Personalized prevention plan provided - Discussed need for and benefit of weight loss. BMI 29.50 kg/(m2) [facility] 11-19-2024 Telephone encounter Note Prescription Refill Information The patient has been identified by name and date of : Yes Caregiver verified no other encounters exist for this prescription request: Yes Caregiver confirmed with patient/requestor that no other refills are due, in the near future, with this provider at this time: Yes The last office visit in the department: 03/04/2024 Does the patient have a future office visit with this provider/department: Yes [facility] Requested Prescriptions Pending Prescriptions Disp Refills finasteride (PROSCAR) 5 mg tablet 90 tablet 5 Sig: Take 1 tablet by mouth once daily. Mariajose Rubin MA November 19, 2024 11:25 AM [facility] 11-19-2024 Miscellaneous Notes Prescription Refill Information The patient has been identified by name and date of : Yes Caregiver verified no other encounters exist for this prescription request: Yes Caregiver confirmed with patient/requestor that no other refills are due, in the near future, with this provider at this time: Yes The last office visit in the department: 03/04/2024 Does the patient have a future office visit with this provider/department: Yes [facility]irmed [facility] Requested Prescriptions Pending Prescriptions Disp Refills finasteride (PROSCAR) 5 mg tablet 90 tablet 5 Sig: Take 1 tablet by mouth once daily. Mariajose Rubin MA November 19, 2024 11:25 AM documented in this encounter [facility] 07-10-2024 Instructions Chris Ibarra MD - 07/10/2024 6:06 PM EST GET RSV VACCINE AT YOUR PHARMACY. documented in this encounter [facility] 07-10-2024 Note HNO ID: [id number] Author: CHRIS IBARRA MD Service: ? Author Type: Physician Type: Progress Notes Filed: 07/10/2024 18:15 Note Text: This note was created using LSAT Freedomriter. Subjective Vitor Saxena is a 74 year old male. He had unexplained hyperglycemia in February. Subsequent follow ups were consistent with impaired fasting glucose. He was watching his diet and results are trending to normal. was asking for a prescription non sedating antihistamine. He has been taking Maritza with good result. Review of Systems Constitutional: Negative for unexpected weight change. Endocrine: Negative for polydipsia, polyphagia and polyuria. ACTIVE PROBLEM LIST Bph With Obstruction/Lower Urinary Tract Symptoms Malignant Neoplasm of Prostate (Hcc) Obesity, Class I, Bmi 30-34.9 Allergic Rhinitis Hypercholesterolemia Hypercalcemia Impaired Fasting Glucose Social History Tobacco Use Smoking status: Never Smokeless tobacco: Never Vaping Use Vaping status: Never Used Substance Use Topics Alcohol use: Yes Alcohol/week: 2.0 standard drinks of alcohol Types: 2 Cans of Beer (12oz) per week Drug use: Never Current Outpatient Medications Medication Sig triamcinolone acetonide (KENALOG) 0.1 % cream Apply 1 application to affected area three times a day. Apply sparingly to area for rash/itching. finasteride (PROSCAR) 5 mg tablet Take 1 tablet by mouth once daily. fexofenadine (MARITZA) 180 mg tablet Take 1 tablet by mouth once daily. ascorbic acid (VITAMIN C ORAL) Take 1 tablet by mouth once daily. Unknown dosage cyanocobalamin (VITAMIN B-12) 1,000 mcg tab Take 1,000 mcg by mouth once daily. cholecalciferol (VITAMIN D3) 1,000 unit tab tablet Take 3,000 Units by mouth once daily. No current facility-administered medications for this visit. Objective BP 128/74 (BP Site: Right Arm, BP Position: Sitting, BP Cuff Size: Large Adult) Pulse 60 Temp 36.2 ?C (97.2 ?F) Resp 14 Ht 177.8 cm (5' 10) Wt 91 kg (200 lb 9.9 oz) SpO2 97% BMI 28.79 kg/m? Physical Exam Constitutional: Appearance: Normal appearance. Latest Ref Rng 07/07/2024 Hemoglobin A1C 4.3 - 5.6 % 5.7 (H) Estimated Average Glucose mg/dL 117 Glucose, Fasting 74 - 99 mg/dL 89 Legend: (H) High Assessment and Plan 1. Impaired fasting glucose - ICD9: 790.21, ICD10: R73.01 (primary diagnosis) Improved. Continue diet. 2. Allergic rhinitis, unspecified seasonality, unspecified trigger - ICD9: 477.9, ICD10: J30.9 Rx sent. Call if not covered. - FEXOFENADINE 180 MG TABLET Chirs Ibarra MD [facility] 07-10-2024 History of Present illness Narrative This note was created using NoteWriter. Subjective Vitor Saxena is a 74 year old male. He had unexplained hyperglycemia in February. Subsequent follow ups were consistent with impaired fasting glucose. He was watching his diet and results are trending to normal. was asking for a prescription non sedating antihistamine. He has been taking Maritza with good result. Review of Systems Constitutional: Negative for unexpected weight change. Endocrine: Negative for polydipsia, polyphagia and polyuria. ACTIVE PROBLEM LIST Bph With Obstruction/Lower Urinary Tract Symptoms Malignant Neoplasm of Prostate (Hcc) Obesity, Class I, Bmi 30-34.9 Allergic Rhinitis Hypercholesterolemia Hypercalcemia Impaired Fasting Glucose Social History Tobacco Use Smoking status: Never Smokeless tobacco: Never Vaping Use Vaping status: Never Used Substance Use Topics Alcohol use: Yes Alcohol/week: 2.0 standard drinks of alcohol Types: 2 Cans of Beer (12oz) per week Drug use: Never Current Outpatient Medications Medication Sig triamcinolone acetonide (KENALOG) 0.1 % cream Apply 1 application to affected area three times a day. Apply sparingly to area for rash/itching. finasteride (PROSCAR) 5 mg tablet Take 1 tablet by mouth once daily. fexofenadine (MARITZA) 180 mg tablet Take 1 tablet by mouth once daily. ascorbic acid (VITAMIN C ORAL) Take 1 tablet by mouth once daily. Unknown dosage cyanocobalamin (VITAMIN B-12) 1,000 mcg tab Take 1,000 mcg by mouth once daily. cholecalciferol (VITAMIN D3) 1,000 unit tab tablet Take 3,000 Units by mouth once daily. No current facility-administered medications for this visit. Objective BP 128/74 (BP Site: Right Arm, BP Position: Sitting, BP Cuff Size: Large Adult) Pulse 60 Temp 36.2 C (97.2 F) Resp 14 Ht 177.8 cm (5' 10) Wt 91 kg (200 lb 9.9 oz) SpO2 97% BMI 28.79 kg/m Physical Exam Constitutional: Appearance: Normal appearance. Latest Ref Rng 07/07/2024 Hemoglobin A1C 4.3 - 5.6 % 5.7 (H) Estimated Average Glucose mg/dL 117 Glucose, Fasting 74 - 99 mg/dL 89 Legend: (H) High Assessment and Plan 1. Impaired fasting glucose - ICD9: 790.21, ICD10: R73.01 (primary diagnosis) Improved. Continue diet. 2. Allergic rhinitis, unspecified seasonality, unspecified trigger - ICD9: 477.9, ICD10: J30.9 Rx sent. Call if not covered. - FEXOFENADINE 180 MG TABLET Chris Ibarra MD documented in this encounter [facility] 04-10-2024 Instructions Chris Ibarra MD - 04/10/2024 5:50 PM EDT Low carbohydrate diet (Mediterranean diet) Regular exercise. Weight loss. Fasting blood work in June for sugar. documented in this encounter [facility] 03-10-2024 Telephone encounter Note Spoke with patient. Given message from provider's office. Patient verbalizes understanding. Transferred to surgical scheduler for one month follow up appointment. Supriya Ca RN [facility] 03-10-2024 Miscellaneous Notes Spoke with patient. Given message from provider's office. Patient verbalizes understanding. Transferred to surgical scheduler for one month follow up appointment. Supriya Ca RN Left message to call & speak to nurse. Stephanie Rosado LPN Left message to call office. 03/10/2024 11:23 AM ----- Message from Chris Ibarra MD sent at 03/08/2024 2:06 PM EDT ----- New diabetes? Glucose 202. Low carb diet. Schedule follow up with Dorita or me in 1 month or sooner if with symptoms. Repeat fasting glucose for appointment. [facility] [facility] 03-10-2024 Telephone encounter Note Left message to call & speak to nurse. Stephanie Rosado LPN [facility] 03-10-2024 Telephone encounter Note Left message to call office. 03/10/2024 11:23 AM [facility] 03-10-2024 Telephone encounter Note ----- Message from Chris Ibarra MD sent at 03/08/2024 2:06 PM EDT ----- New diabetes? Glucose 202. Low carb diet. Schedule follow up with Dorita or me in 1 month or sooner if with symptoms. Repeat fasting glucose for appointment. [facility] 03-04-2024 Instructions Meena Corral PA-C - 03/04/2024 1:33 PM EDT > 6 months for PSA, No Appointment Needed August 2024 > 1 year Appointment with PSA prior - 02/2025 > Future PSA orders are in EPIC documented in this encounter [facility] 03-04-2024 History of Present illness Narrative Images from the original note were not included. [facility] ESTABLISHED PATIENT PATIENT INFO: Vitor Beach Hemanth 73 year old Chief Complaint: Prostate Cancer on follow-up HPI Temperance 6 Prostate Cancer found in 2007 On , but has not had any PSA in 2 yrs discussed the need for PSA every 6 months with imaging / or prostate biopsy if indicated No complaints, No hematuria, Continue to take Proscar 5 mg He had a PSA in November 2023 with PCP of 4.64, which is stable and will need new PSA in 6 months and no visit in August 2024 PATHOLOGY: Prostate Biopsy 2007 FINAL DIAGNOSIS 1. LEFT PROSTATE, RANDOM NEEDLE BIOPSIES (A) - BENIGN PROSTATIC TISSUE WITH FOCAL ATROPHY AND CHRONIC INFLAMMATION. 2. RIGHT PROSTATE, RANDOM NEEDLE BIOPSIES (B) - SMALL FOCUS OF ADENOCARCINOMA OF THE PROSTATE ONUR SCORE 3+3=6 INVOLVING 5% OF THE LENGTH OF ONE OF TWELVE CORES. - HIGH-GRADE PROSTATIC INTRAEPITHELIAL NEOPLASIA. (SEE COMMENT) 2010 FINAL DIAGNOSIS 1. Prostate, right lateral base, needle biopsy (A) - Benign prostatic tissue with atrophy and focal chronic inflammation. 2. Prostate, right mid lateral, needle biopsy (B) - Benign prostatic tissue. 3. Prostate, right medial base, needle biopsy (C) - Benign prostatic tissue. 4. Prostate, right medial mid, needle biopsy (D) - Benign prostatic tissue. 5. Prostate, left lateral base, needle biopsy (E) - Benign prostatic tissue with atrophy and chronic inflammation. 6. Prostate, left lateral mid, needle biopsy (F) - Benign prostatic tissue with atrophy. 7. Prostate, left medial base, needle biopsy (G) - Benign prostatic tissue. 8. Prostate, left medial mid, needle biopsy (H) - Benign prostatic tissue with atrophy and focal chronic inflammation. 9. Prostate, left medial apex, needle biopsy (I) - Benign prostatic tissue with atrophy and focal chronic inflammation. 10. Prostate, left medial apex, needle biopsy (J) - Benign prostatic tissue with atrophy. 11. Prostate, right lateral apex, needle biopsy (K) - Benign prostatic tissue with focal atrophy and acute and chronic inflammation. 12. Prostate, right medial apex, needle biopsy (L) - Benign prostatic tissue. (See comment) 2012 FINAL DIAGNOSIS 1. Left base lateral prostate, biopsy (G) - Slight acute and chronic inflammation. 2. Prostate, right apex medial, left mid lateral, left apex lateral, left mid medial, left apex medial, multiple biopsies (F, H, I, K, L) - Slight chronic inflammation. 3. Right prostate, base lateral, mid lateral, apex lateral, base medial, mid medial, left base medial prostate, multiple biopsies (A-E, J) - Benign prostatic parenchyma. LAB: Creatinine Date Value Ref Range Status 02/27/2024 0.94 0.73 - 1.22 mg/dL Final 11/27/2023 0.96 0.73 - 1.22 mg/dL Final 11/11/2020 0.84 0.73 - 1.22 mg/dL Final 12/28/2018 0.98 0.73 - 1.22 mg/dL Final PSA (ng/mL) Date Value 11/27/2023 4.64 05/06/2022 4.11 01/22/2020 3.94 12/28/2018 4.28 03/05/2018 5.17 10/01/2017 7.23 02/20/2017 6.80 03/30/2016 5.96 01/02/2015 5.62 01/05/2014 6.25 07/09/2013 6.96 12/09/2012 6.79 IMAGING: MRI: Prostate: 01/14/19 IMPRESSION: MARKED HYPERTROPHY OF THE TRANSITION ZONE WITHOUT FOCAL ABNORMALITIES SUSPICIOUS FOR CLINICALLY SIGNIFICANT DISEASE (PI-RADS 2) NO DELIA OR OSSEOUS METASTASES. ALLERGIES: ALLERGIES Allergen Reactions Cephalexin Hives MEDICATIONS: triamcinolone acetonide (KENALOG) 0.1 % cream Apply 1 application to affected area three times a day. Apply sparingly to area for rash/itching. finasteride (PROSCAR) 5 mg tablet Take 1 tablet by mouth once daily. fexofenadine (MARITZA) 180 mg tablet Take 1 tablet by mouth once daily. ascorbic acid (VITAMIN C ORAL) Take 1 tablet by mouth once daily. Unknown dosage cyanocobalamin (VITAMIN B-12) 1,000 mcg tab Take 1,000 mcg by mouth once daily. cholecalciferol (VITAMIN D3) 1,000 unit tab tablet Take 3,000 Units by mouth once daily. 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 PHYSICAL EXAMINATION BP 124/80 (BP Site: Right Arm, BP Position: Sitting, BP Cuff Size: Regular Adult) Pulse 94 Temp 36.7 C (98.1 F) (Temporal) Resp 16 Wt 90.7 kg (200 lb) SpO2 94% BMI 28.70 kg/m General appearance: Well appearing, alert, in no acute distress and well-hydrated, well nourished Skin: Skin color, texture, turgor normal, no suspicious rashes or lesions Head: Normocephalic, no masses, lesions, tenderness or abnormalities Abdomen: Normal abdominal exam, Abdomen soft, non-tender. Bowel sounds normal. No masses, organomegaly Genitourinary: MALE EXAM: Exam NOT Indicated PVR - 0 ml ASSESSMENT/PLAN: Hx of prostate biopsy X 3 - Onur 6 prostate cancer in 2007, 2010 and 2012 negative > Prostate MRI negative for suspicious lesions > Continue Active Surveillance - PSA every 6 months 2. BPH Continue Proscar renewed. > 6 months for PSA, No Appointment Needed 08/2024 > 1 year Appointment with PSA prior - 02/2025 > Future PSA orders are in EPIC PAULA Peralta MT, PA-C Verified name and date of . CC Post Void Residual HPI: Vitor Saxena is a 73 year old male. The patient is here now for an appointment with PAULA Peralta MT, PA-COV. Procedure: Explained procedure to patient and verbalizes understanding. Performed a PVR. Patient urinated and instructed to empty bladder as much as possible just prior to having PVR done using bladder ultrasound scanner. Results of scan: 0 mL The patient tolerated the procedure well. Plan: Appointment with Meena. documented in this encounter [facility] 12-03-2023 History of Present illness Narrative This note was created using NoteWriter. Subjective Vitor Saxena is a 73 year old male. He felt well, other than a pruritic rash that started 2 months ago, on his back and was now spreading to his chest and abdomen. He had been applying TAC prescribed for other condition with some relief, but medication was finished. Review of Systems Constitutional: Negative for appetite change, chills, diaphoresis, fatigue and fever. HENT: Negative. Eyes: Negative. Respiratory: Negative. Cardiovascular: Negative. Genitourinary: Negative for difficulty urinating. Neurological: Negative. ACTIVE PROBLEM LIST Bph With Obstruction/Lower Urinary Tract Symptoms Malignant Neoplasm of Prostate (Hcc) Obesity, Class I, Bmi 30-34.9 Nontraumatic Tear of Left Rotator Cuff Palmar Fibromatosis Allergic Rhinitis Elevated Blood Pressure Reading Social History Tobacco Use Smoking status: Never Smokeless tobacco: Never Vaping Use Vaping Use: Never used Substance Use Topics Alcohol use: Yes Alcohol/week: 2.0 standard drinks of alcohol Types: 2 Cans of Beer (12oz) per week Drug use: Never Current Outpatient Medications Medication Sig finasteride (PROSCAR) 5 mg tablet Take 1 tablet by mouth once daily. fexofenadine (MARITZA) 180 mg tablet Take 1 tablet by mouth once daily. ascorbic acid (VITAMIN C ORAL) Take 1 tablet by mouth once daily. Unknown dosage cyanocobalamin (VITAMIN B-12) 1,000 mcg tab Take 1,000 mcg by mouth once daily. cholecalciferol (VITAMIN D3) 1,000 unit tab tablet Take 3,000 Units by mouth once daily. triamcinolone acetonide (KENALOG) 0.1 % cream Apply 1 application to affected area three times a day. Apply sparingly to area for rash/itching. No current facility-administered medications for this visit. Objective BP 124/72 (BP Site: Left Arm, BP Position: Sitting, BP Cuff Size: Large Adult) Pulse 64 Temp 36.6 C (97.8 F) (Temporal) Resp 16 Wt 93.9 kg (207 lb) BMI 29.70 kg/m Physical Exam Constitutional: General: He is not in acute distress. Appearance: He is not ill-appearing. HENT: Head: Normocephalic. Nose: Nose normal. Mouth/Throat: Mouth: Mucous membranes are moist. Pharynx: Oropharynx is clear. Cardiovascular: Rate and Rhythm: Normal rate and regular rhythm. Heart sounds: No murmur heard. No gallop. Pulmonary: Effort: No respiratory distress. Breath sounds: No wheezing or rales. Abdominal: General: Bowel sounds are normal. There is no distension. Tenderness: There is no abdominal tenderness. Musculoskeletal: Cervical back: No tenderness. Right lower leg: No edema. Left lower leg: No edema. Lymphadenopathy: Cervical: No cervical adenopathy. Skin: Findings: Rash present. Comments: Erythematous maculopapular rash of entire back, upper chest. Neurological: General: No focal deficit present. Mental Status: He is alert. Depression Screening PHQ-2 Score ELMA-2 Total Score 12/03/2023 0 0 Depression screening tool completed and reviewed. Based on score and interview, patient is not at risk for depression. Screening tool discussed with patient, and I recommended no further intervention at this time. Latest Ref Rng 11/27/2023 Glucose 74 - 99 mg/dL 114 (H) BUN 9 - 24 mg/dL 12 Creatinine 0.73 - 1.22 mg/dL 0.96 Sodium 136 - 144 mmol/L 140 Potassium 3.7 - 5.1 mmol/L 4.7 Chloride 98 - 107 mmol/L 101 CO2 22 - 30 mmol/L 27 Anion Gap 8 - 15 mmol/L 12 Calcium 8.5 - 10.2 mg/dL 10.3 (H) eGFR >=60 mL/min/1.73m 82 Cholesterol, Total <200 mg/dL 206 (H) Triglyceride <150 mg/dL 80 HDL Cholesterol >39 mg/dL 59 Non HDL Cholesterol <130 mg/dL 147 (H) Fasting Time hrs 12 VLDL Cholesterol <30 mg/dL 16 TC:HDL Ratio <5.10 3.49 LDL Cholesterol <100 mg/dL 131 (H) LDL:HDL Ratio <2.54 2.22 PSA <2.60 ng/mL 4.64 (H) Legend: (H) High Assessment and Plan 1. Medicare annual wellness visit, subsequent - ICD9: V70.0, ICD10: Z00.00 (primary diagnosis) - see wellness note. 2. Rash and nonspecific skin eruption - ICD9: 782.1, ICD10: R21 - TRIAMCINOLONE ACETONIDE 0.1 % TOPICAL CREAM - CONSULT TO DERMATOLOGY 3. Malignant neoplasm of prostate (HCC) - ICD9: 185, ICD10: C61 - Stable. Monitored only. 4. BPH with obstruction/lower urinary tract symptoms - ICD9: 600.01, 599.69, ICD10: N40.1, N13.8 - Controlled. 5. Impaired fasting glucose - ICD9: 790.21, ICD10: R73.01 - Low carb diet. Recheck in 3 months. - BASIC METABOLIC PANEL - HEMOGLOBIN A1C 6. Hypercalcemia - ICD9: 275.42, ICD10: E83.52 Mild. Recheck in 3 months. - VITAMIN D 25 HYDROXY - COMPLETE BLOOD COUNT - PTH INTACT 7. Hypercholesterolemia - ICD9: 272.0, ICD10: E78.00 - Improved with diet. 8. Need for COVID-19 vaccine - ICD9: V04.89, ICD10: Z23 - [employer] It COVID-19 VACCINE ( [place]) AGE 12+ YR Chris Ibarra MD documented in this encounter [facility] 10-11-2023 Telephone encounter Note Patient has been identified by name and date of : Yes, Provider Garrett Patient phones for refill(s): Requested Prescriptions Pending Prescriptions Disp Refills triamcinolone acetonide (KENALOG) 0.1 % cream 30 g 0 Sig: Apply 1 application to affected area three times a day. Apply sparingly to area for rash/itching. Date of last office visit in primary care: 05/31/2023 Date of next office visit in primary care: 11/30/2023 Please advise. Thank you. Rocio Lorenz. [facility] 10-11-2023 Miscellaneous Notes Patient has been identified by name and date of : Yes, Provider Garrett Patient phones for refill(s): Requested Prescriptions Pending Prescriptions Disp Refills triamcinolone acetonide (KENALOG) 0.1 % cream 30 g 0 Sig: Apply 1 application to affected area three times a day. Apply sparingly to area for rash/itching. Date of last office visit in primary care: 05/31/2023 Date of next office visit in primary care: 11/30/2023 Please advise. Thank you. Rocio Lorenz. documented in this encounter [facility] 10-02-2023 Instructions Meena Corral PA-C - 10/02/2023 3:20 PM EDT > 6 months for PSA, No Appointment Needed - 03/2024 > 1 year Appointment with PSA prior = 09/2024 > Future PSA orders are in EPIC documented in this encounter [facility] 10-02-2023 History of Present illness Narrative Images from the original note were not included. [facility] ESTABLISHED PATIENT PATIENT INFO: Vitor Yong Saxena 73 year old Chief Complaint: Prostate Cancer on follow-up HPI Temperance 6 Prostate Cancer found in 2007 On , but has not had any PSA in 2 yrs discussed the need for PSA every 6 months with imaging / or prostate biopsy if indicated No complaints No hematuria Continue to take Proscar 5 mg PATHOLOGY: Prostate Biopsy 2007 FINAL DIAGNOSIS 1. LEFT PROSTATE, RANDOM NEEDLE BIOPSIES (A) - BENIGN PROSTATIC TISSUE WITH FOCAL ATROPHY AND CHRONIC INFLAMMATION. 2. RIGHT PROSTATE, RANDOM NEEDLE BIOPSIES (B) - SMALL FOCUS OF ADENOCARCINOMA OF THE PROSTATE ONUR SCORE 3+3=6 INVOLVING 5% OF THE LENGTH OF ONE OF TWELVE CORES. - HIGH-GRADE PROSTATIC INTRAEPITHELIAL NEOPLASIA. (SEE COMMENT) 2010 FINAL DIAGNOSIS 1. Prostate, right lateral base, needle biopsy (A) - Benign prostatic tissue with atrophy and focal chronic inflammation. 2. Prostate, right mid lateral, needle biopsy (B) - Benign prostatic tissue. 3. Prostate, right medial base, needle biopsy (C) - Benign prostatic tissue. 4. Prostate, right medial mid, needle biopsy (D) - Benign prostatic tissue. 5. Prostate, left lateral base, needle biopsy (E) - Benign prostatic tissue with atrophy and chronic inflammation. 6. Prostate, left lateral mid, needle biopsy (F) - Benign prostatic tissue with atrophy. 7. Prostate, left medial base, needle biopsy (G) - Benign prostatic tissue. 8. Prostate, left medial mid, needle biopsy (H) - Benign prostatic tissue with atrophy and focal chronic inflammation. 9. Prostate, left medial apex, needle biopsy (I) - Benign prostatic tissue with atrophy and focal chronic inflammation. 10. Prostate, left medial apex, needle biopsy (J) - Benign prostatic tissue with atrophy. 11. Prostate, right lateral apex, needle biopsy (K) - Benign prostatic tissue with focal atrophy and acute and chronic inflammation. 12. Prostate, right medial apex, needle biopsy (L) - Benign prostatic tissue. (See comment) 2012 FINAL DIAGNOSIS 1. Left base lateral prostate, biopsy (G) - Slight acute and chronic inflammation. 2. Prostate, right apex medial, left mid lateral, left apex lateral, left mid medial, left apex medial, multiple biopsies (F, H, I, K, L) - Slight chronic inflammation. 3. Right prostate, base lateral, mid lateral, apex lateral, base medial, mid medial, left base medial prostate, multiple biopsies (A-E, J) - Benign prostatic parenchyma. LAB: Creatinine Date Value Ref Range Status 11/11/2020 0.84 0.73 - 1.22 mg/dL Final 12/28/2018 0.98 0.73 - 1.22 mg/dL Final 07/12/2018 0.80 0.73 - 1.22 mg/dL Final 10/10/2013 0.82 0.70 - 1.40 mg/dL Final PSA (ng/mL) Date Value 05/06/2022 4.11 01/22/2020 3.94 12/28/2018 4.28 03/05/2018 5.17 10/01/2017 7.23 02/20/2017 6.80 03/30/2016 5.96 01/02/2015 5.62 01/05/2014 6.25 07/09/2013 6.96 12/09/2012 6.79 IMAGING: MRI: Prostate: 01/14/19 IMPRESSION: MARKED HYPERTROPHY OF THE TRANSITION ZONE WITHOUT FOCAL ABNORMALITIES SUSPICIOUS FOR CLINICALLY SIGNIFICANT DISEASE (PI-RADS 2) NO DELIA OR OSSEOUS METASTASES. ALLERGIES: ALLERGIES Allergen Reactions Cephalexin Hives MEDICATIONS: fexofenadine (MARITZA) 180 mg tablet Take 1 tablet by mouth once daily. finasteride (PROSCAR) 5 mg tablet Take 1 tablet by mouth once daily. triamcinolone acetonide (KENALOG) 0.1 % cream Apply 1 application to affected area three times daily. Apply sparingly to area for rash/itching. (Patient taking differently: Apply 1 application to affected area three times a day. Apply sparingly to area for rash/itching. Patient using as needed.) ascorbic acid (VITAMIN C ORAL) Take 1 tablet by mouth once daily. Unknown dosage cyanocobalamin (VITAMIN B-12) 1,000 mcg tab Take 1,000 mcg by mouth once daily. cholecalciferol (VITAMIN D3) 1,000 unit tab tablet Take 3,000 Units by mouth once daily. metroNIDAZOLE 0.75 % cream Apply 1 application to affected area twice daily. 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 PHYSICAL EXAMINATION BP 120/82 (BP Site: Right Arm, BP Position: Sitting, BP Cuff Size: Regular Adult) Pulse 86 Temp 36.7 C (98.1 F) (Temporal) Resp 14 Ht 177.8 cm (5' 10) Wt 94.1 kg (207 lb 6.4 oz) SpO2 95% BMI 29.76 kg/m General appearance: Well appearing, alert, in no acute distress and well-hydrated, well nourished Skin: Skin color, texture, turgor normal, no suspicious rashes or lesions Head: Normocephalic, no masses, lesions, tenderness or abnormalities Abdomen: Normal abdominal exam, Abdomen soft, non-tender. Bowel sounds normal. No masses, organomegaly Genitourinary: MALE EXAM: Exam NOT Indicated PVR - 33 ml ASSESSMENT/PLAN: Hx of prostate biopsy X 3 - Temperance 6 cancer in 2007 2010 and 2012 negative Prostate MRI negative for suspicious lesions Continue Active Surveillance - PSA every 6 months Proscar renewed. > 6 months for PSA, No Appointment Needed 03/2024 > 1 year Appointment with PSA prior - 09/2024 > Future PSA orders are in EPIC PAULA Peralta MT, PA-C Verified name and date of . CC Post Void Residual HPI: Vitor Saxena is a 73 year old male. The patient is here now for an appointment with PAULA Peralta MT, PA-COV. Procedure: Explained procedure to patient and verbalizes understanding. Performed a PVR. Patient urinated and instructed to empty bladder as much as possible just prior to having PVR done using bladder ultrasound scanner. Results of scan: 33 mL The patient tolerated the procedure well. Plan: Appointment with Meena. documented in this encounter [facility] 05-31-2023 History of Present illness Narrative This note was created using [employer]. Subjective Vitor Saxena is a 72 year old male. His blood pressure was better and his weight was down. He felt well. Review of Systems Constitutional: Negative for fatigue and fever. HENT: Negative for congestion. Respiratory: Negative for cough and shortness of breath. ACTIVE PROBLEM LIST Bph With Obstruction/Lower Urinary Tract Symptoms Malignant Neoplasm of Prostate (Hcc) Obesity, Class I, Bmi 30-34.9 Nontraumatic Tear of Left Rotator Cuff Palmar Fibromatosis Allergic Rhinitis Elevated Blood Pressure Reading Social History Tobacco Use Smoking status: Never Smokeless tobacco: Never Vaping Use Vaping Use: Never used Substance Use Topics Alcohol use: Yes Alcohol/week: 2.0 standard drinks of alcohol Types: 2 Cans of Beer (12oz) per week Drug use: No Current Outpatient Medications Medication Sig fexofenadine (MARITZA) 180 mg tablet Take 1 tablet by mouth once daily. finasteride (PROSCAR) 5 mg tablet Take 1 tablet by mouth once daily. ascorbic acid (VITAMIN C ORAL) Take by mouth. cyanocobalamin (VITAMIN B-12) 1,000 mcg tab Take 1,000 mcg by mouth once daily. cholecalciferol (VITAMIN D3) 1,000 unit tab tablet Take 3,000 Units by mouth once daily. metroNIDAZOLE 0.75 % cream Apply 1 application to affected area twice daily. triamcinolone acetonide (KENALOG) 0.1 % cream Apply 1 application to affected area three times daily. Apply sparingly to area for rash/itching. (Patient taking differently: Apply 1 application to affected area three times daily. Apply sparingly to area for rash/itching. Patient using as needed.) No current facility-administered medications for this visit. Objective BP 122/72 Pulse (!) 58 Temp 36.8 C (98.3 F) Resp 16 Wt 94.6 kg (208 lb 9.6 oz) SpO2 98% BMI 30.80 kg/m Physical Exam Constitutional: General: He is not in acute distress. Cardiovascular: Rate and Rhythm: Regular rhythm. Bradycardia present. Pulmonary: Breath sounds: Normal breath sounds. Musculoskeletal: Right lower leg: No edema. Left lower leg: No edema. Neurological: Mental Status: He is alert. Assessment and Plan 1. Elevated blood pressure reading - ICD9: 796.2, ICD10: R03.0 (primary diagnosis) - Encouraged dietary sodium restriction/DASH diet - Discussed need and benefit for weight loss. - Goal of BP <130/80 - BASIC METABOLIC PNL 2. Need for influenza vaccination - ICD9: V04.81, ICD10: Z23 - INFLUENZA VACCINE, PRSV FREE, AGE 65+ YR, HIGH DOSE, QUADRIVALENT (FLUZONE HIGH-DOSE) 3. Need for COVID-19 vaccine - ICD9: V04.89, ICD10: Z23 - [employer] COVID-19 VACCINE (2022- [place]) AGE 12+ YR 4. PSA elevation - ICD9: 790.93, ICD10: R97.20 - PSA/PROSTSPECAG DIAG 5. Hyperlipidemia, unspecified hyperlipidemia type - ICD9: 272.4, ICD10: E78.5 - Controlled - Counseled on healthy diet and regular exercise - LIPID PANEL BASIC Chris Ibarra MD documented in this encounter [facility] 05-26-2023 Telephone encounter Note Patient came for lab work. No labs are in. Please advise [facility] 05-26-2023 Miscellaneous Notes Patient came for lab work. No labs are in. Please advise documented in this encounter [facility] 12-27-2022 Instructions Dorita Gorman APRN.[facility] - 12/27/2022 4:26 PM EDT Continue with Doxycycline (antibiotics) until course is completed. Follow-up if any recurrent or worsening symptoms. Start triamcinolone cream for skin issue on the right palm. Follow-up with oil well service operator helper in two weeks if there is no improvement. documented in this encounter [facility] 12-27-2022 History of Present illness Narrative Images from the original note were not included. CC: Patient presents with: Follow Up: Cellulitis HPI Vitor Saxena is a 72 year old male who presents today for above. Patient was seen in [facility] on 12/24 for two day history of redness, swelling and pain right lower leg. He was treated for cellulitis with Doxycycline. Today patient reports significant improvement in symptoms. Tolerating antibiotics without side effects. Denies new or worsening symptoms, fever, chills. He has a rash to the right wrist/palm area x 6 months. Started as a couple red spots, now skin is dry and peeling. Denies pain or itching. Treating with lotion. No history of skin problems such as eczema or psoriasis. He does wash his hands frequently at work. 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 triamcinolone acetonide (KENALOG) 0.1 % cream Apply 1 application to affected area three times daily for 7 days. Apply sparingly to area for rash/itching. fexofenadine (MARITZA) 180 mg tablet Take 1 tablet by mouth once daily. finasteride (PROSCAR) 5 mg tablet Take 1 tablet by mouth once daily. triamcinolone acetonide (KENALOG) 0.1 % cream Apply 1 application to affected area three times daily. Apply sparingly to area for rash/itching. (Patient taking differently: Apply 1 application to affected area three times daily. Apply sparingly to area for rash/itching. Patient using as needed.) ascorbic acid (VITAMIN C ORAL) Take by mouth. cyanocobalamin (VITAMIN B-12) 1,000 mcg tab Take 1,000 mcg by mouth once daily. cholecalciferol (VITAMIN D3) 1,000 unit tab tablet Take 3,000 Units by mouth once daily. metroNIDAZOLE 0.75 % cream Apply 1 application to affected area twice daily. FAMILY HISTORY Problem Relation Age of Onset Arthritis Mother Rheumatoid Cancer Father lung, metastatic No Known Problems Sister other (leg edema) Brother Social History Tobacco Use Smoking status: Never Smokeless tobacco: Never Vaping Use Vaping Use: Never used Substance Use Topics Alcohol use: Yes Alcohol/week: 2.0 standard drinks of alcohol Types: 2 Cans of Beer (12oz) per week Drug use: No PHYSICAL EXAM BP 142/78 Pulse 60 Temp 36.8 C (98.2 F) (Temporal) Resp 16 Wt 95.3 kg (210 lb) BMI 31.01 kg/m General Appearance: well appearing, in no acute distress, alert Ext: no edema in LE bilaterally, good distal pulses, capillary refill < 2 seconds ASSESSMENT/PLAN: 1. Cellulitis of right lower extremity - ICD9: 682.6, ICD10: L03.115 (primary diagnosis) - Continue treatment with Doxycycline - No lymphangetic streaking, this was defined for patient to watch for and to seek medical care immediately if appears - follow-up as needed for any worsening or recurrent symptoms 2. Rash of hand - ICD9: 782.1, ICD10: R21 Possibly dry skin dermatitis. Start Kenalog cream. Follow-up with dermatology in two weeks if no improvement or sooner if worsening Prescription instructions reviewed with patient as applicable. Potential red flag symptoms discussed with the patient. Reviewed appropriate action plan to take if red flag symptoms occur. Patient agreeable to treatment plan. Dorita Gorman APRN.CRYSTAL documented in this encounter [facility] 12-24-2022 History of Present illness Narrative Images from the original note were not included. This note was created using [employer]. Subjective Vitor Saxena is a 72 year old male. HPI Presents with redness on his right lower leg over the past 2 days. He has a history of cellulitis in the leg last year and was seen several times for it. Had been treated with Keflex initially but then thought to have developed an allergy. He states Sunday he started feeling chills and just not feeling well. He is not sure if he had a fever. He had slept more than normal. He then noticed this redness on the front of his leg. Denies being diabetic. No hx dvt/pe. No long trip or surgeries. His had some mupirocin that they have been been putting on it over the past 2 days and he thinks maybe it is actually better today. Review of Systems Constitutional: Positive for chills and fatigue. HENT: Negative. Respiratory: Negative. Cardiovascular: Negative. Gastrointestinal: Negative. Musculoskeletal: Right lower leg rash. All other systems reviewed and are negative. 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 90 tablet 1 finasteride (PROSCAR) 5 mg tablet Take 1 tablet by mouth once daily. 90 tablet 5 triamcinolone acetonide (KENALOG) 0.1 % cream Apply 1 application to affected area three times daily. Apply sparingly to area for rash/itching. (Patient taking differently: Apply 1 application to affected area three times daily. Apply sparingly to area for rash/itching. Patient using as needed.) 30 g 0 ascorbic acid (VITAMIN C ORAL) Take by mouth. cyanocobalamin (VITAMIN B-12) 1,000 mcg tab Take 1,000 mcg by mouth once daily. cholecalciferol (VITAMIN D3) 1,000 unit tab tablet Take 3,000 Units by mouth once daily. metroNIDAZOLE 0.75 % cream Apply 1 application to affected area twice daily. doxycycline (VIBRA-TABS) 100 mg tablet Take 1 tablet by mouth twice daily for 7 days. 14 tablet 0 triamcinolone acetonide (KENALOG) 0.1 % cream Apply 1 application to affected area three times daily for 7 days. Apply sparingly to area for rash/itching. 80 g 0 No current facility-administered medications for this visit. PAST SURGICAL HISTORY Procedure Laterality Date APPENDECTOMY HX COLONOSCOPY 08/01/2021 hyperplastic polyp, repeat in 10 years COLONOSCOPY FLX DX W/COLLJ SPEC WHEN PFRMD 01/14/2008 mild diverticulosis, repeat due 2018 PROSTATE BIOPSY 2012 2007, 2010, 2012 SKIN BIOPSY HX TONSILLECTOMY HX FAMILY HISTORY Problem Relation Age of Onset Arthritis Mother Rheumatoid Cancer Father lung, metastatic No Known Problems Sister other (leg edema) Brother Social History Tobacco Use Smoking status: Never Smokeless tobacco: Never Vaping Use Vaping Use: Never used Substance Use Topics Alcohol use: Yes Alcohol/week: 2.0 standard drinks of alcohol Types: 2 Cans of Beer (12oz) per week Drug use: No Objective BP 122/78 Pulse 62 Temp 36.3 C (97.4 F) (Tympanic) Resp 16 Wt 95.3 kg (210 lb) SpO2 99% BMI 31.01 kg/m Physical Exam Vitals reviewed. Constitutional: Appearance: Normal appearance. HENT: Head: Normocephalic and atraumatic. Skin: General: Skin is warm and dry. Comments: Patient has erythema and mild swelling to the anterior right lower leg, medial malleolus of the ankle and posterior lower leg. No tenderness on his calf. Negative Homans' sign. No lymphangitic streaking. Warm to touch. No petechia or purpura. Neurological: Mental Status: He is alert. Assessment and Plan ASSESSMENT/PLAN: 1. Cellulitis of skin - ICD9: 682.9, ICD10: L03.90 -We will treat with doxycycline due to Keflex allergy. Also given triamcinolone for the itch. We will have him have close follow-up with PCP to make sure this is improving. Red flags for ER care discussed. Does not appear to be DVT, appears to be more cellulitic. Jenny Baugh PA-C documented in this encounter [facility] 11-29-2022 History of Present illness Narrative This note was created using [employer]. Subjective Vitor Saxena is a 72 year old male. He was doing well and had no concerns. We reviewed elevating blood pressure. Prostate cancer was monitored by annual PSA. BPH symptoms were controlled. Review of Systems Constitutional: Negative for fatigue and unexpected weight change. Respiratory: Negative for cough, chest tightness and shortness of breath. Cardiovascular: Negative for chest pain, palpitations and leg swelling. Gastrointestinal: Negative for abdominal pain. Genitourinary: Negative for difficulty urinating and dysuria. ACTIVE PROBLEM LIST Bph With Obstruction/Lower Urinary Tract Symptoms Malignant Neoplasm of Prostate (Hcc) Obesity, Class I, Bmi 30-34.9 Nontraumatic Tear of Left Rotator Cuff Palmar Fibromatosis Allergic Rhinitis Elevated Blood Pressure Reading Current Outpatient Medications Medication Sig fexofenadine (MARITZA) 180 mg tablet Take 1 tablet by mouth once daily. finasteride (PROSCAR) 5 mg tablet Take 1 tablet by mouth once daily. triamcinolone acetonide (KENALOG) 0.1 % cream Apply 1 application to affected area three times daily. Apply sparingly to area for rash/itching. (Patient taking differently: Apply 1 application to affected area three times daily. Apply sparingly to area for rash/itching. Patient using as needed.) ascorbic acid (VITAMIN C ORAL) Take by mouth. cyanocobalamin (VITAMIN B-12) 1,000 mcg tab Take 1,000 mcg by mouth once daily. cholecalciferol (VITAMIN D3) 1,000 unit tab tablet Take 3,000 Units by mouth once daily. metroNIDAZOLE 0.75 % cream Apply 1 application to affected area twice daily. No current facility-administered medications for this visit. Objective BP 134/76 (BP Site: Left Arm, BP Position: Sitting, BP Cuff Size: Large Adult) Pulse (!) 55 Resp 16 Ht 175.3 cm (5' 9) Wt 97 kg (213 lb 12.8 oz) BMI 31.57 kg/m Physical Exam Constitutional: General: He is not in acute distress. Appearance: He is not ill-appearing. Cardiovascular: Rate and Rhythm: Normal rate and regular rhythm. Heart sounds: No murmur heard. No gallop. Pulmonary: Effort: Pulmonary effort is normal. Breath sounds: Normal breath sounds. Musculoskeletal: Right lower leg: No edema. Left lower leg: No edema. Neurological: Mental Status: He is alert. Assessment and Plan 1. Medicare annual wellness visit, subsequent - ICD9: V70.0, ICD10: Z00.00 (primary diagnosis) See wellness note. 2. Need for vaccination - ICD9: V05.9, ICD10: Z23 - PFIZER-BIONTECH COVID-19 BIVALENT VACCINE, AGE 12+ YR - PNEUMOCOCCAL VACCINE (PREVNAR 20) 3. Malignant neoplasm of prostate (HCC) - ICD9: 185, ICD10: C61 Annual PSA for active surveillance. 4. BPH with obstruction/lower urinary tract symptoms - ICD9: 600.01, 599.69, ICD10: N40.1, N13.8 Stable. 5. Elevated blood pressure reading - ICD9: 796.2, ICD10: R03.0 - Encouraged dietary sodium restriction/DASH diet - Recommended regular aerobic exercise. - Discussed need and benefit for weight loss. - Reviewed risks of HTN and principles of treatment - Goal of BP <130/80 - BASIC METABOLIC PNL 6. 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 Diverticulitis of colon (without mention of hemorrhage)(562.11) 08/21/2006 Esophageal reflux 11/20/2005 Malignant neoplasm of prostate (HCC) 08/14/2007 Orchitis and epididymitis, unspecified 03/11/2009 Prostate cancer (HCC) 07/24/2007 [place] 3+3 2007 PAST SURGICAL HISTORY Procedure Laterality Date APPENDECTOMY HX COLONOSCOPY 08/01/2021 hyperplastic polyp, repeat in 10 years COLONOSCOPY FLX DX W/COLLJ SPEC WHEN PFRMD 01/14/2008 mild diverticulosis, repeat due 2018 PROSTATE BIOPSY 2012 2007, 2010, 2012 SKIN BIOPSY HX TONSILLECTOMY HX ALLERGIES: Cephalexin Medications reviewed: Yes FAMILY HISTORY Problem Relation Age of Onset Arthritis Mother Rheumatoid Cancer Father lung, metastatic No Known Problems Sister other (leg edema) Brother SOCIAL HISTORY: Social History Tobacco Use Smoking status: Never Smokeless tobacco: Never Vaping Use Vaping Use: Never used Substance Use Topics Alcohol use: Yes Alcohol/week: 2.0 standard drinks Types: 2 Cans of Beer (12oz) per week Drug use: No Vitor gets sporadic irregular exercise. He watches his diet for sodium, low fat and low cholesterol generally not very much. List of current specialists seen: Dr. Afsaneh Villarreal, urology. [facility]. End of Live Planning discussed including patients advanced directive wishes: Yes I am willing to follow Vitor's advanced directives. None made. PHQ-2 / Depression screen He in the past two weeks denies having felt down, depressed, hopeless, or with little interest or pleasure in doing things. Functional Ability/Safety Screen 1. Was the patient's timed Up and Go test unsteady or longer than 30 seconds? No 2. Does the patient need help with the phone, transportation, shopping,preparing meals, housework, laundry, medications or managing money? No 3. Does your home have rugs in the hallway, lack of grab bars in the bathroom, lack of handrails on the stairs or have poor lighting? No Hearing Evaluation: within normal limits PHYSICAL EXAM Ht 175.3 cm (5' 9) Wt 97 kg (213 lb 12.8 oz) BMI 31.57 kg/m Alert and oriented X 3: YES Body mass index is 31.57 kg/m . Visual acuity: OD: 20/50 OS: 20/ 30 OU: 20/25 The Mini Cog(c): Word recall=3/3 + Clock drawing=1/2=4/5. (<3 is positive). ASSESSMENT/PLAN: 72 year old male The following prevention plan was discussed during the office visit and provided to the patient: - Counseled on healthy diet and regular exercise - Discussed need for and benefit of weight loss. BMI 31.57 kg/(m^2) - Fall avoidance - Vaccines recommended COVID-19 and Pneumococcal - Lipid panel - Diabetes screening - Depression screening Chris Ibarra MD documented in this encounter [facility] 11-29-2022 Instructions Chris Ibarra MD - 11/29/2022 1:42 PM EDT Fasting blood work. Exercise 30 minutes 4 days per week or more. Weight loss. How to limit salt (sodium) to avoid swelling and hypertension: Keep your daily sodium intake to 3000 mg per day. DO: Read labels Keep a food diary for the first week of restriction - must include snacks! Bake or broil your foods DO NOT DRINK: V8 juice Tomato juice Canned soups DO NOT EAT: Canned food Tomato Sauce Barbecue Sauce Soy Sauce Pickles Prepared meats such as salami, corned beef, etc. Fettuccine [place] con carne Beef burrito Potato salad Cottage cheese (both regular and low fat are high in sodium) [place]er [place] Two-egg omelet, ham and cheese Chop suey (not even homemade!) Macaroni and cheese (not even homemade!) Cheeseburger Fish Sticks TIPS: Plain [place] breast is OK as sandwich meat Look for low salt soups in the grocery store- usually a bit more expensive. Advance Directive Forms Advanced Directives Forms (Macanese) FORMS: http://author.[email or web address].[facility].org/Port als/138/gipt-bksgrx-szqn-power-[email or web address]- associate attorney.pdf INFORMATIONAL BROCHURE: [email or web address].org/-/s hugoets/files/org/patients-visitor s/information/advance-directives.a shx?la=en Advance Directives (non-Macanese) FORMS: [email or web address] ients/information/medical-decision s-guide/advance-directives#forms-t ab Please bring completed forms to your next appointment or email them to [email or web address]. Patient Resources How to Get Started Talking with Loved Ones about your Wishes at the End of Life [email or web address] /wp-content/uploads//Conver sinefsTfgrscu-FnjniMxuycmhOaj-Kfmu gareth.pdf How to Navigate Conversations with your Care Team around your Preferences [email or web address] documented in this encounter [facility] 10-12-2022 Miscellaneous Notes Patient's request for medication is as follows Requested Prescriptions Signed Prescriptions Disp Refills fexofenadine (MARITZA) 180 mg tablet 90 tablet 1 Sig: Take 1 tablet by mouth once daily. Authorizing Provider: CHRIS IBARRA MD Patient returned call and said he has runny nose and post nasal drainage and generic claritin only helps for about an hour. Patient said he used to use generic flonase nasal spray but made his nose to dry and stopped because nose bled. Patient said he used to take sudafed but stopped that when started claritin. Patient asking for another medication to be sent to [facility] please. TC , Brayden is currently at work, will call when he gets home and speak to nurse. Stephanie Rosado LPN What symptoms or conditions are we talking about for loratadine? This was from urgent care last year. 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 She says if it will go through using [facility] to send it there otherwise send [facility] to [facility] [place]. Please call and advise. documented in this encounter [facility] 06-08-2022 History of Present illness Narrative Images from the original note were not included. [facility] LOCATION: [address] [place] [address] ESTABLISHED PATIENT PATIENT INFO: Vitor Saxena 71 year old Chief Complaint: Prostate Cancer on HPI [place] 6 Prostate Cancer found in 2007 On No complaints No hematuria 1-Duration: 2018 2-Location: prostate 3-Severity: N/A 4-Quality: Not applicable 5-Context: N/A 6-Timing: N/A 7-Modifying factors: No treatment prior to referral 8-Associated signs & symptoms: no additional symptoms PATHOLOGY: Prostate Biopsy 2007 FINAL DIAGNOSIS 1. LEFT PROSTATE, RANDOM NEEDLE BIOPSIES (A) - BENIGN PROSTATIC TISSUE WITH FOCAL ATROPHY AND CHRONIC INFLAMMATION. 2. RIGHT PROSTATE, RANDOM NEEDLE BIOPSIES (B) - SMALL FOCUS OF ADENOCARCINOMA OF THE PROSTATE ONUR SCORE 3+3=6 INVOLVING 5% OF THE LENGTH OF ONE OF TWELVE CORES. - HIGH-GRADE PROSTATIC INTRAEPITHELIAL NEOPLASIA. (SEE COMMENT) 2010 FINAL DIAGNOSIS 1. Prostate, right lateral base, needle biopsy (A) - Benign prostatic tissue with atrophy and focal chronic inflammation. 2. Prostate, right mid lateral, needle biopsy (B) - Benign prostatic tissue. 3. Prostate, right medial base, needle biopsy (C) - Benign prostatic tissue. 4. Prostate, right medial mid, needle biopsy (D) - Benign prostatic tissue. 5. Prostate, left lateral base, needle biopsy (E) - Benign prostatic tissue with atrophy and chronic inflammation. 6. Prostate, left lateral mid, needle biopsy (F) - Benign prostatic tissue with atrophy. 7. Prostate, left medial base, needle biopsy (G) - Benign prostatic tissue. 8. Prostate, left medial mid, needle biopsy (H) - Benign prostatic tissue with atrophy and focal chronic inflammation. 9. Prostate, left medial apex, needle biopsy (I) - Benign prostatic tissue with atrophy and focal chronic inflammation. 10. Prostate, left medial apex, needle biopsy (J) - Benign prostatic tissue with atrophy. 11. Prostate, right lateral apex, needle biopsy (K) - Benign prostatic tissue with focal atrophy and acute and chronic inflammation. 12. Prostate, right medial apex, needle biopsy (L) - Benign prostatic tissue. (See comment) 2012 FINAL DIAGNOSIS 1. Left base lateral prostate, biopsy (G) - Slight acute and chronic inflammation. 2. Prostate, right apex medial, left mid lateral, left apex lateral, left mid medial, left apex medial, multiple biopsies (F, H, I, K, L) - Slight chronic inflammation. 3. Right prostate, base lateral, mid lateral, apex lateral, base medial, mid medial, left base medial prostate, multiple biopsies (A-E, J) - Benign prostatic parenchyma. LAB: WBC (k/uL) Date Value 10/10/2013 8.28 RBC (m/uL) Date Value 10/10/2013 4.84 Hemoglobin (g/dL) Date Value 10/10/2013 15.4 Hematocrit (%) Date Value 10/10/2013 44.4 MCV (fL) Date Value 10/10/2013 91.7 MCH (pG) Date Value 10/10/2013 31.8 MCHC (g/dL) Date Value 10/10/2013 34.7 RDW-CV (%) Date Value 10/10/2013 12.4 Platelet Count (k/uL) Date Value 10/10/2013 206 MPV (fL) Date Value 10/10/2013 10.2 Neut% (%) Date Value 10/10/2013 67.0 Lymph% (%) Date Value 10/10/2013 24.5 Walker% (%) Date Value 10/10/2013 7.6 Eosin% (%) Date Value 10/10/2013 0.8 Baso% (%) Date Value 10/10/2013 0.1 Abs Neut (ANC) (k/uL) Date Value 10/10/2013 5.54 Abs Walker (k/uL) Date Value 10/10/2013 0.63 Abs Eosin (k/uL) Date Value 10/10/2013 0.07 Abs Baso (k/uL) Date Value 10/10/2013 0.01 Creatinine Date Value Ref Range Status 11/11/2020 0.84 0.73 - 1.22 mg/dL Final 12/28/2018 0.98 0.73 - 1.22 mg/dL Final 07/12/2018 0.80 0.73 - 1.22 mg/dL Final 10/10/2013 0.82 0.70 - 1.40 mg/dL Final PSA (ng/mL) Date Value 05/06/2022 4.11 01/22/2020 3.94 12/28/2018 4.28 03/05/2018 5.17 10/01/2017 7.23 02/20/2017 6.80 03/30/2016 5.96 01/02/2015 5.62 01/05/2014 6.25 07/09/2013 6.96 12/09/2012 6.79 pH, Urine Date Value Ref Range Status 12/27/2011 7.0 4.5 - 8.0 Final Specific [place], Ur Date Value Ref Range Status 12/27/2011 1.015 1.005 - 1.030 Final Glucose, Urine Date Value Ref Range Status 12/27/2011 neg Neg mg/dL Final Bilirubin, Urine Date Value Ref Range Status 12/27/2011 neg Neg Final Ketones, Urine Date Value Ref Range Status 12/27/2011 neg Neg Final Hemoglobin/Blood,Ur Date Value Ref Range Status 12/27/2011 neg Neg Final Protein, Urine Date Value Ref Range Status 12/27/2011 neg Neg mg/dL Final Nitrites Date Value Ref Range Status 12/27/2011 neg Neg Final Leukocytes Date Value Ref Range Status 12/27/2011 trace (A) Neg Final IMAGING: MRI: Prostate: 01/14/19 IMPRESSION: MARKED HYPERTROPHY OF THE TRANSITION ZONE WITHOUT FOCAL ABNORMALITIES SUSPICIOUS FOR CLINICALLY SIGNIFICANT DISEASE (PI-RADS 2) NO DELIA OR OSSEOUS METASTASES. ALLERGIES: ALLERGIES Allergen Reactions Cephalexin Hives MEDICATIONS: triamcinolone acetonide (KENALOG) 0.1 % cream Apply 1 application to affected area three times daily. Apply sparingly to area for rash/itching. (Patient taking differently: Apply 1 application to affected area three times daily. Apply sparingly to area for rash/itching. Patient using as needed. ) loratadine (CLARITIN) 10 mg tablet Take 1 tablet by mouth once daily. finasteride (PROSCAR) 5 mg tablet TAKE 1 TABLET DAILY ascorbic acid (VITAMIN C ORAL) Take by mouth. cyanocobalamin (VITAMIN B-12) 1,000 mcg tab Take 1,000 mcg by mouth once daily. cholecalciferol (VITAMIN D) 1,000 unit tab tablet Take 3,000 Units by mouth once daily. metroNIDAZOLE 0.75 % cream Apply 1 application to affected area twice daily. 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 REVIEW OF SYSTEMS General:No weight loss, malaise or fevers., SEE HPI Genitourinary: No history of dysuria, frequency or incontinence The remainder of the ROS was negative. PHYSICAL EXAMINATION Ht 177.8 cm (5' 10) Wt 97.1 kg (214 lb) BMI 30.71 kg/m General appearance: Well appearing, alert, in no acute distress and well-hydrated, well nourished Skin: Skin color, texture, turgor normal, no suspicious rashes or lesions Head: Normocephalic, no masses, lesions, tenderness or abnormalities Abdomen: Normal abdominal exam, Abdomen soft, non-tender. Bowel sounds normal. No masses, organomegaly Genitourinary: MALE EXAM: Exam NOT Indicated ASSESSMENT/PLAN: Gross hematuria CT urogram negative Cytology today Cystoscopy negative Hx of prostate biopsy X 3 - [place] 6 cancer in 2007 2010 and 2012 negative Prostate MRI negative for suspicious lesions Continue Active Surveillance - PSA annually Proscar renewed. Will release by ALMAS Villarreal DO, MBA documented in this encounter [facility] 05-08-2022 Miscellaneous Notes Donn's called in and I relayed the results to her, and that is stable. Charmaine Gomez Left message on phone for pt to return call. MADIHA Singh ----- Message from Cristi Villarreal DO sent at 05/08/2022 6:31 AM EST ----- PSA stable documented in this encounter [facility] 02-24-2022 Miscellaneous Notes PSA pended, please file. Patient is scheduled for May for Med Refill since he hasn't been seen since 2019. Any labs needed before the visit? If so, please place and let PT know. Or let me know and I'll call the back. Thanks, Jose documented in this encounter [facility] 11-07-2021 Instructions hCris Ibarra MD - 11/07/2021 7:00 PM EDT TDAP (TETANUS BOOSTER) AT YOUR PHARMACY. SHINGRIX (SHINGLES VACCINE 2 SERIES) AT YOUR PHARMACY. ADVANCED DIRECTIVE RECOMMENDED. 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 Diverticulitis of colon (without mention of hemorrhage)(562.11) 08/21/2006 Esophageal reflux 11/20/2005 Malignant neoplasm of prostate (HCC) 08/14/2007 Orchitis and epididymitis, unspecified 03/11/2009 Prostate cancer (HCC) 07/24/2007 Onur 3+3 2007 PAST SURGICAL HISTORY Procedure Laterality Date APPENDECTOMY HX COLONOSCOPY 08/01/2021 hyperplastic polyp, repeat in 10 years COLONOSCOPY FLX DX W/COLLJ SPEC WHEN PFRMD 01/14/2008 mild diverticulosis, repeat due 2018 PROSTATE BIOPSY 2012 2007, 2010, 2012 SKIN BIOPSY HX TONSILLECTOMY HX ALLERGIES: Cephalexin Medications reviewed: Yes Current Outpatient Medications Medication Sig triamcinolone acetonide (KENALOG) 0.1 % cream Apply 1 application to affected area three times daily. Apply sparingly to area for rash/itching. (Patient taking differently: Apply 1 application to affected area three times daily. Apply sparingly to area for rash/itching. Patient using as needed. ) loratadine (CLARITIN) 10 mg tablet Take 1 tablet by mouth once daily. finasteride (PROSCAR) 5 mg tablet TAKE 1 TABLET DAILY ascorbic acid (VITAMIN C ORAL) Take by mouth. cyanocobalamin (VITAMIN B-12) 1,000 mcg tab Take 1,000 mcg by mouth once daily. cholecalciferol (VITAMIN D) 1,000 unit tab tablet Take 3,000 Units by mouth once daily. metroNIDAZOLE 0.75 % cream Apply 1 application to affected area twice daily. No current facility-administered medications for this visit. 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 He watches his diet for sodium, low fat and low cholesterol generally not very much. He was watching his carbs and losing weight. List of current specialists seen: None currently. End of Live Planning discussed including patients advanced directive wishes: Yes He needed to make one. PHQ-2 / Depression screen He in the past two weeks denies having felt down, depressed, hopeless or with little interest or pleasure in doing things. PHQ-2 Score: 0 PHQ-9 Score: 0 Functional Ability/Safety Screen 1. Was the patient's timed Up and Go test unsteady or longer than 30 seconds? No 2. Does the patient need help with the phone, transportation, shopping,preparing meals, housework, laundry, medications or managing money? No 3. Does your home have rugs in the hallway, lack of grab bars in the bathroom, lack of handrails on the stairs or have poor lighting? No Hearing Evaluation: normal PHYSICAL EXAM BP 128/62 (BP Site: Left Arm, BP Position: Sitting) Pulse 60 Resp 16 Ht 175.3 cm (5' 9) Wt 95.3 kg (210 lb) BMI 31.01 kg/m Alert and oriented X 3: YES Body mass index is 31.01 kg/m . Visual acuity: OD: 20/30 OS: 20/50 OU: 20/25 The Mini Cog(c): Word recall=0/3 + Clock drawing=2/2=2/5. (<3 is positive). ASSESSMENT/PLAN: 71 year old male The following prevention plan was discussed during the office visit and provided to the patient: - Weight Loss - Fall avoidance - Vaccines recommended COVID-19, Shingrix at pharmacy and Tdap at pharmacy - Counseling for Weight Loss and Exercise - ADVANCE CARE PLAN DISCUSSION 2. BPH with obstruction/lower urinary tract symptoms - ICD9: 600.01, 599.69, ICD10: N40.1, N13.8 Controlled. Call for refills. 3. Obesity, Class I, BMI 30-34.9 - ICD9: 278.00, ICD10: E66.9 Weight decreasing 4. Need for COVID-19 vaccine - ICD9: V04.89, ICD10: Z23 - [employer] COVID-19 VACCINE, AGE 12+ YR (ROBLES TOP) Chris Ibarra MD documented in this encounter [facility] 10-17-2021 History of Present illness Narrative 10/17/2021 Patient presents with: Rash: L lower leg x1 month SUBJECTIVE: This is a 71 year old that is here today for Complaint(s) of rash on left lower leg x 1 month. Overall significantly better per patient. Started with cellulitis-treated with antibiotics. Open sores resolved. Then developed an itchy rash in that area. Treated with prednisone and triamcinolone, patient has since finished. Now using Cetaphil lotion at bedtime. Patient sates made appointment today because he felt it wasn't better, but then the last 2 days significantly improved. 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 finasteride (PROSCAR) 5 mg tablet TAKE 1 TABLET DAILY Gnyulpp-Dblisqeohcbae-Xxrpjafu (EXCEDRIN) 250-250-65 mg per tablet Take 1 tablet by mouth every 8 hours as needed (shoulder pain.). ascorbic acid (VITAMIN C ORAL) Take by mouth. cyanocobalamin (VITAMIN B-12) 1,000 mcg tab Take 1,000 mcg by mouth once daily. cholecalciferol (VITAMIN D) 1,000 unit tab tablet Take 3,000 Units by mouth once daily. metroNIDAZOLE 0.75 % cream Apply 1 application to affected area twice daily. predniSONE (DELTASONE) 5 mg tablet take two tablets daily for one week then take one table for one week then discontinue. Take with breakfast. For rash (Patient not taking: Reported on 10/17/2021 ) No current facility-administered medications for this visit. SOCIAL HISTORY Social History Tobacco Use Smoking status: Never Smoker Smokeless tobacco: Never Used Vaping Use Vaping Use: Never used Substance Use Topics Alcohol use: Yes Alcohol/week: 2.0 standard drinks Types: 2 Cans of Beer (12oz) per week Drug use: No REVIEW OF SYSTEMS See HPI OBJECTIVE: BP 138/78 Pulse 60 Temp 36.7 C (98 F) Resp 18 Wt 98.9 kg (218 lb) SpO2 98% BMI 31.73 kg/m APPEARANCE Well appearing, alert, in no acute distress, well-hydrated, well nourished. EXTREMITIES No deformities, No edema and Normal pulses bilaterally. No calf TTP. + pink maculopapular rash distal left LE without warmth or TTP. Overlying dry skin scaling present. No vesicular or pustular lesions. ASSESSMENT/PLAN: 1. Rash - ICD9: 782.1, ICD10: R21 Overall improving per patient. Refill for triamcinolone prescribed prn Continue hydration ointment/cream F/u in 1 week if not continuing to resolve/improve, sooner if worsening symptoms. - TRIAMCINOLONE ACETONIDE 0.1 % TOPICAL CREAM Liz Kan PA-C documented in this encounter [facility] 09-12-2021 Instructions Liane Rebolledo APRN.MAINTENANCE DISPATCHER - 09/12/2021 7:26 AM EDT Diagnosis: Assessment VIRAL RASH: Your exam shows you have a rash due to a virus infection. Measles, [place] measles, chicken pox, and many other viruses can cause a rash along with fever and other symptoms. Sometimes a rash will appear if you have a virus infection and you are prescribed an antibiotic. Most of the time the rash clears up within one week as the rest of the symptoms improve. You can pass virus infections on to others through being in close contact, so stay away from other people as much as possible until you are better. Call your doctor if you are not better after 4-5 days, or if you become worse. You should see a doctor right away if you have a severe headache, a high fever, repeated vomiting, or breathing problems. documented in this encounter [facility] 09-12-2021 History of Present illness Narrative Images from the original note were not included. Subjective Patient came in with complains of redness on left lower leg. Patient said it started 3 days ago. He itched his leg with his shoe of the other foot and created an open area. No pus or drainage from site per patient. Denies fever child nausea. denies any other symptoms at this time. The history is provided by the patient. No speech language specialist was used. Rash Review of Systems Constitutional: Negative. Skin: Positive for itching and rash. Objective Physical Exam Constitutional: Appearance: Normal appearance. Pulmonary: Effort: Pulmonary effort is normal. Skin: General: Skin is warm. Comments: Red area is where the maculopapular rash is at. Purple area is an open wound no drainage or discoloration noted. Neurological: Mental Status: He is alert. 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 MEDICATIONS finasteride (PROSCAR) 5 mg tablet TAKE 1 TABLET DAILY Cnjfzux-Fafszptpxfmts-Nanzsvbl (EXCEDRIN) 250-250-65 mg per tablet Take 1 tablet by mouth every 8 hours as needed (shoulder pain.). ascorbic acid (VITAMIN C ORAL) Take by mouth. cyanocobalamin (VITAMIN B-12) 1,000 mcg tab Take 1,000 mcg by mouth once daily. cholecalciferol (VITAMIN D) 1,000 unit tab tablet Take 3,000 Units by mouth once daily. metroNIDAZOLE 0.75 % cream Apply 1 application to affected area twice daily. cephALEXin (KEFLEX) 500 mg capsule Take 1 capsule by mouth four times daily for 7 days. loratadine (CLARITIN) 10 mg tablet Take 1 tablet by mouth once daily. fluticasone (FLONASE) 50 mcg/actuation nasal spray Use 2 Sprays in each nostril once daily. Rinse mouth after use. FAMILY HISTORY Problem Relation Age of Onset Arthritis Mother Rheumatoid Cancer Father lung, metastatic No Known Problems Sister other (leg edema) Brother Social History Tobacco Use Smoking status: Never Smoker Smokeless tobacco: Never Used Vaping Use Vaping Use: Never used Substance Use Topics Alcohol use: Yes Alcohol/week: 2.0 standard drinks Types: 2 Cans of Beer (12oz) per week Drug use: No ASSESSMENT/PLAN: 1. Rash - ICD9: 782.1, ICD10: R21 keflex 4 times a day for 7 days at this time. patient instructed to follow up with PCP if symptoms worsen. Patient was educated about red flags and when to report to the ER. Liane Rebolledo APRN.CRYSTAL documented in this encounter [facility] 2018 History of Past i llness Narrative Problem Noted Date Resolved Date Gross hematuria 2018 10/21/2020 Elevated PSA 12/23/2012 10/21/2020 Bladder neck obstruction 01/13/2010 021 Orchitis and epididymitis, unspecified 9 10/21/2020 Diverticulitis of colon (wit hout mention of hemorrhage)(562.11) 08/21/2006 10/21/2020 PAIN ABDOMEN( Left Lower Quadrant) 08/21/2006 10/21/2020 Esophageal reflux 11/20/2005 10/21/2020 HIVES ALLERGIC 09/18/2005 10/21/2020 documented as of this encounter (statuses as of 09/12/2021) [facility] History of Past illness Narrative* Problem Noted Date Resolved Date Gross hematuria 2018 10/21/2020 Elevated PSA 12/23/2012 10/21/2020 Bladder neck obstruction 01/13/2010 021 Orchitis and epididymitis, unspecified 9 10/21/2020 Diverticulitis of colon (wit hout mention of hemorrhage)(562.11) 08/21/2006 10/21/2020 PAIN ABDOMEN( Left Lower Quadrant) 08/21/2006 10/21/2020 Esophageal reflux 11/20/2005 10/21/2020 HIVES ALLERGIC 09/18/2005 10/21/2020 documented as of this encounter (statuses as of 10/17/2021) [facility] History of Past illness Narrative* Problem Noted Date Resolved Date Gross hematuria 2018 10/21/2020 Elevated PSA 12/23/2012 10/21/2020 Bladder neck obstruction 01/13/2010 021 Orchitis and epididymitis, unspecified 9 10/21/2020 Diverticulitis of colon (wit hout mention of hemorrhage)(562.11) 08/21/2006 10/21/2020 PAIN ABDOMEN( Left Lower Quadrant) 08/21/2006 10/21/2020 Esophageal reflux 11/20/2005 10/21/2020 OBESITY 09/18/2005 11/07/2021 HIVES ALLERGIC 09/18/2005 10/21/2020 documented as of this encounter (statuses as of 11/08/2021) [facility] History of Past illness Narrative* Problem Noted Date Resolved Date Gross hematuria 2018 10/21/2020 Elevated PSA 12/23/2012 10/21/2020 Bladder neck obstruction 01/13/2010 021 Orchitis and epididymitis, unspecified 9 10/21/2020 Diverticulitis of colon (wit hout mention of hemorrhage)(562.11) 08/21/2006 10/21/2020 PAIN ABDOMEN( Left Lower Quadrant) 08/21/2006 10/21/2020 Esophageal reflux 11/20/2005 10/21/2020 OBESITY 09/18/2005 11/07/2021 HIVES ALLERGIC 09/18/2005 10/21/2020 documented as of this encounter (statuses as of 02/27/2022) [facility] History of Past illness Narrative* Problem Noted Date Resolved Date Gross hematuria 2018 10/21/2020 Elevated PSA 12/23/2012 10/21/2020 Bladder neck obstruction 01/13/2010 021 Orchitis and epididymitis, unspecified 9 10/21/2020 Diverticulitis of colon (wit hout mention of hemorrhage)(562.11) 08/21/2006 10/21/2020 PAIN ABDOMEN( Left Lower Quadrant) 08/21/2006 10/21/2020 Esophageal reflux 11/20/2005 10/21/2020 OBESITY 09/18/2005 11/07/2021 HIVES ALLERGIC 09/18/2005 10/21/2020 documented as of this encounter (statuses as of 06/09/2022) [facility] History of Past illness Narrative* Problem Noted Date Resolved Date Gross hematuria 2018 10/21/2020 Elevated PSA 12/23/2012 10/21/2020 Bladder neck obstruction 01/13/2010 021 Orchitis and epididymitis, unspecified 9 10/21/2020 Diverticulitis of colon (wit hout mention of hemorrhage)(562.11) 08/21/2006 10/21/2020 PAIN ABDOMEN( Left Lower Quadrant) 08/21/2006 10/21/2020 Esophageal reflux 11/20/2005 10/21/2020 OBESITY 09/18/2005 11/07/2021 HIVES ALLERGIC 09/18/2005 10/21/2020 documented as of this encounter (statuses as of 07/14/2022) [facility] History of Past illness Narrative* Problem Noted Date Resolved Date Gross hematuria 2018 10/21/2020 Elevated PSA 12/23/2012 10/21/2020 Bladder neck obstruction 01/13/2010 021 Orchitis and epididymitis, unspecified 9 10/21/2020 Diverticulitis of colon (wit hout mention of hemorrhage)(562.11) 08/21/2006 10/21/2020 PAIN ABDOMEN( Left Lower Quadrant) 08/21/2006 10/21/2020 Esophageal reflux 11/20/2005 10/21/2020 OBESITY 09/18/2005 11/07/2021 HIVES ALLERGIC 09/18/2005 10/21/2020 documented as of this encounter (statuses as of 10/12/2022) [facility] History of Past illness Narrative* Problem Noted Date Resolved Date Gross hematuria 2018 10/21/2020 Elevated PSA 12/23/2012 10/21/2020 Bladder neck obstruction 01/13/2010 021 Orchitis and epididymitis, unspecified 9 10/21/2020 Elevated prostate specific antigen (PSA) 008 11/29/2022 Diverticulitis of colon (wit hout mention of hemorrhage)(562.11) 08/21/2006 10/21/2020 PAIN ABDOMEN( Left Lower Quadrant) 08/21/2006 10/21/2020 Esophageal reflux 11/20/2005 10/21/2020 OBESITY 09/18/2005 11/07/2021 HIVES ALLERGIC 09/18/2005 10/21/2020 documented as of this encounter (statuses as of 11/30/2022) [facility] History of Past illness Narrative* Problem Noted Date Diagnosed Date Resolved Date Gross hematuria 2018 10/21/2020 Elevated PSA 12/23/2012 10/21/2020 Bladder neck obstruction 01/13/201011/2020 Orchitis and epididymitis, unspecified 03/11/2009 10/21/2020 Elevated prostate specific antigen (PSA) 07/24/2007 11/29/2022 Diverticulitis of colon (wit hout mention of hemorrhage)(562.11) 08/21/2006 10/21/2020 PAIN ABDOMEN( Left Lower Quadrant) 08/21/2006 10/21/2020 Esophageal reflux 11/20/2005 10/21/2020 OBESITY 09/18/2005 11/07/2021 HIVES ALLERGIC 09/18/2005 10/21/2020 documented as of this encounter (statuses as of 12/24/2022) [facility] History of Past illness Narrative* Problem Noted Date Diagnosed Date Resolved Date Gross hematuria 2018 10/21/2020 Elevated PSA 12/23/2012 10/21/2020 Bladder neck obstruction 01/13/201011/2020 Orchitis and epididymitis, unspecified 03/11/2009 10/21/2020 Elevated prostate specific antigen (PSA) 07/24/2007 11/29/2022 Diverticulitis of colon (wit hout mention of hemorrhage)(562.11) 08/21/2006 10/21/2020 PAIN ABDOMEN( Left Lower Quadrant) 08/21/2006 10/21/2020 Esophageal reflux 11/20/2005 10/21/2020 OBESITY 09/18/2005 11/07/2021 HIVES ALLERGIC 09/18/2005 10/21/2020 documented as of this encounter (statuses as of 12/28/2022) [facility] History of Past illness Narrative* Problem Noted Date Diagnosed Date Resolved Date Gross hematuria 2018 10/21/2020 Elevated PSA 12/23/2012 10/21/2020 Bladder neck obstruction 01/13/201011/2020 Orchitis and epididymitis, unspecified 03/11/2009 10/21/2020 Elevated prostate specific antigen (PSA) 07/24/2007 11/29/2022 Diverticulitis of colon (wit hout mention of hemorrhage)(562.11) 08/21/2006 10/21/2020 PAIN ABDOMEN( Left Lower Quadrant) 08/21/2006 10/21/2020 Esophageal reflux 11/20/2005 10/21/2020 OBESITY 09/18/2005 11/07/2021 HIVES ALLERGIC 09/18/2005 10/21/2020 documented as of this encounter (statuses as of 06/01/2023) [facility] History of Past illness Narrative* Problem Noted Date Diagnosed Date Resolved Date Gross hematuria 2018 10/21/2020 Elevated PSA 12/23/2012 10/21/2020 Bladder neck obstruction 01/13/201011/2020 Orchitis and epididymitis, unspecified 03/11/2009 10/21/2020 Elevated prostate specific antigen (PSA) 07/24/2007 11/29/2022 Diverticulitis of colon (wit hout mention of hemorrhage)(562.11) 08/21/2006 10/21/2020 PAIN ABDOMEN( Left Lower Quadrant) 08/21/2006 10/21/2020 Esophageal reflux 11/20/2005 10/21/2020 OBESITY 09/18/2005 11/07/2021 HIVES ALLERGIC 09/18/2005 10/21/2020 documented as of this encounter (statuses as of 09/24/2023) [facility] History of Past illness Narrative* Problem Noted Date Diagnosed Date Resolved Date Gross hematuria 2018 10/21/2020 Elevated PSA 12/23/2012 10/21/2020 Bladder neck obstruction 01/13/201011/2020 Orchitis and epididymitis, unspecified 03/11/2009 10/21/2020 Elevated prostate specific antigen (PSA) 07/24/2007 11/29/2022 Diverticulitis of colon (wit hout mention of hemorrhage)(562.11) 08/21/2006 10/21/2020 PAIN ABDOMEN( Left Lower Quadrant) 08/21/2006 10/21/2020 Esophageal reflux 11/20/2005 10/21/2020 OBESITY 09/18/2005 11/07/2021 HIVES ALLERGIC 09/18/2005 10/21/2020 documented as of this encounter (statuses as of 10/03/2023) [facility] Rash- Primary Rash and other nonspecific skin eruption [facility] Diagnosis Medicare annual wellness visit, subsequent- Primary Routine general medical examination at a health care facility BPH with obstruction/lower urinary tract symptoms 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) Obesity, Class I, BMI 30-34.9 Obesity, unspecified Need for COVID-19 vaccine [facility] Diagnosis Elevated PSA- Primary Elevated prostate specific antigen (PSA) [facility] Malignant neoplasm of prostate (HCC)- Primary Malignant neoplasm of prostate BPH with obstruction/lower urinary tract symptoms 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) [facility] Diagnosis Allergic rhinitis, unspecified seasonality, unspecified trigger [facility] Diagnosis Medicare annual wellness visit, subsequent- Primary Routine general medical examination at a health care facility Need for vaccination Need for prophylactic vaccination and inoculation against unspecified single disease Malignant neoplasm of prostate (HCC) Malignant neoplasm of prostate BPH with obstruction/lower urinary tract symptoms 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) Elevated blood pressure reading Elevated blood pressure reading without diagnosis of hypertension Elevated cholesterol Pure [facility]cholesterolemia [facility] Cellulitis of skin- Primary Cellulitis and abscess of unspecified site [facility] Diagnosis Cellulitis of right lower extremity- Primary Cellulitis and abscess of leg, except foot Rash of hand [facility] Diagnosis Elevated blood pressure reading- Primary Elevated blood pressure reading without diagnosis of hypertension Need for influenza vaccination Need for prophylactic vaccination and inoculation against influenza Need for COVID-19 vaccine PSA elevation Elevated prostate specific antigen (PSA) Hyperlipidemia, unspecified hyperlipidemia type [facility] Diagnosis Malignant neoplasm of prostate (HCC)- Primary Malignant neoplasm of prostate BPH with obstruction/lower urinary tract symptoms 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) [facility] Diagnosis Rash Rash and other nonspecific skin eruption [facility] Diagnosis Medicare annual wellness visit, subsequent- Primary Routine general medical examination at a [facility] care facility Rash and nonspecific skin eruption Rash and other nonspecific skin eruption Malignant neoplasm of prostate (HCC) Malignant neoplasm of prostate BPH with obstruction/lower urinary tract symptoms 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) Impaired fasting glucose Hypercalcemia Hypercholesterolemia Pure hypercholesterolemia Need for COVID-19 vaccine [facility] Diagnosis Malignant neoplasm of prostate (HCC)- Primary Malignant neoplasm of prostate BPH with obstruction/lower urinary tract symptoms 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) [facility] Diagnosis Impaired fasting glucose- Primary [facility] Diagnosis Impaired fasting glucose- Primary Encounter for immunization Need for other specified prophylactic vaccination against single bacterial disease [facility] Diagnosis Impaired fasting glucose- Primary Allergic rhinitis, unspecified seasonality, unspecified trigger [facility] Diagnosis BPH with obstruction/lower urinary tract symptoms 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) [facility] Diagnosis Medicare annual wellness visit, subsequent- Primary Routine general medical examination at a health care facility Screening for depression Encounter for screening examination for other mental health and behavioral disorders Actinic keratosis Malignant neoplasm of prostate (HCC) Malignant neoplasm of prostate BPH with obstruction/lower urinary tract symptoms 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) Obesity, Class I, BMI 30-34.9 Obesity, unspecified Hypercalcemia Hypercholesterolemia Pure hypercholesterolemia Impaired fasting glucose documented in this encounter [facility] Summary Purpose Family History No Family History Records FoundNo Family History Records FoundNo Family History Records Found Advance Directives No Advanced Directives Records FoundDocuments on File Type Date Recorded Patient Environmental Assistant Expl anation Advance Directive(s) 08/01/2021 7:53 AM Advance Directive(s) 07/25/2021 3:45 PM Reason for Referral Specialty Diagnoses / Procedures Referred By Kimberly vaughn Referred To Contact Dermatology Diagnoses Rash and nonspecific skin eruption Procedures CONSULT TO DERMATOLOGY Chris Ibarra MD [address] [place] [address] Referral ID Status Reason Start Date Expiration Date Visits Requested Visits Authorized [id number] Ref Not Required PCP Requested Referral 12/03/2023 12/02/2024 1 1 Additional Source Comments (unrecognized sect ion and content) No Status Records FoundNo Status Records FoundNo Status Records Found INFORMATION SOURCE (unrecogn ized section and content) DATE CREATED AUTHOR 10/29/2020 [facility] DATE CREATED AUTHOR AUTHOR'S ORGANIZ ATION 07/15/2022 [facility] DATE CREATED AUTHOR AUTHOR'S ORGANIZ ATION 03/11/2025 [facility] Source Comments (unrecognize d section and content) In the event this informatio n is protected by the Federal Confidentiality of Alcohol and Drug Abuse Patient Records regulations: The Federal rules restrict any use of the information to criminally investigate or prosecute any alcohol or drug abuse patient.[facility] the event this information is protected by the Federal Confidentiality of Alcohol and Drug Abuse Patient Records regulations: The Federal rules restrict any use of the information to criminally investigate or prosecute any alcohol or drug abuse patient.[facility] the event this information is protected by the Federal Confidentiality of Alcohol and Drug Abuse Patient Records regulations: The Federal rules restrict any use of the information to criminally investigate or prosecute any alcohol or drug abuse patient.[facility] the event this information is protected by the Federal Confidentiality of Alcohol and Drug Abuse Patient Records regulations: The Federal rules restrict any use of the information to criminally investigate or prosecute any alcohol or drug abuse patient.[facility] the event this information is protected by the Federal Confidentiality of Alcohol and Drug Abuse Patient Records regulations: The Federal rules restrict any use of the information to criminally investigate or prosecute any alcohol or drug abuse patient.[facility] event this information is protected by the Federal Confidentiality of Alcohol and Drug Abuse Patient Records regulations: The Federal rules restrict any use of the information to criminally investigate or prosecute any alcohol or drug abuse patient.[facility] the event this information is protected by the Federal Confidentiality of Alcohol and Drug Abuse Patient Records regulations: The Federal rules restrict any use of the information to criminally investigate or prosecute any alcohol or drug abuse patient.[facility] the event this information is protected by the Federal Confidentiality of Alcohol and Drug Abuse Patient Records regulations: The Federal rules restrict any use of the information to criminally investigate or prosecute any alcohol or drug abuse patient.[facility] the event this information is protected by the Federal Confidentiality of Alcohol and Drug Abuse Patient Records regulations: The Federal rules restrict any use of the information to criminally investigate or prosecute any alcohol or drug abuse patient.[facility] the event this information is protected by the Federal Confidentiality of Alcohol and Drug Abuse Patient Records regulations: The Federal rules restrict any use of the information to criminally investigate or prosecute any alcohol or drug abuse patient.[facility] the event this information is protected by the Federal Confidentiality of Alcohol and Drug Abuse Patient Records regulations: The Federal rules restrict any use of the information to criminally investigate or prosecute any alcohol or drug abuse patient.[facility] the event this information is protected by the Federal Confidentiality of Alcohol and Drug Abuse Patient Records regulations: The Federal rules restrict any use of the information to criminally investigate or prosecute any alcohol or drug abuse patient.[facility] the event this information is protected by the Federal Confidentiality of Alcohol and Drug Abuse Patient Records regulations: The Federal rules restrict any use of the information to criminally investigate or prosecute any alcohol or drug abuse patient.[facility] the event this information is protected by the Federal Confidentiality of Alcohol and Drug Abuse Patient Records regulations: The Federal rules restrict any use of the information to criminally investigate or prosecute any alcohol or drug abuse patient.[facility] Shaw[facility] the event this information is protected by the Federal Confidentiality of Alcohol and Drug Abuse Patient Records regulations: The Federal rules restrict any use of the information to criminally investigate or prosecute any alcohol or drug abuse patient.[facility] Shaw[facility] the event this information is protected by the Federal Confidentiality of Alcohol and Drug Abuse Patient Records regulations: The Federal rules restrict any use of the information to criminally investigate or prosecute any alcohol or drug abuse patient.[facility] the event this information is protected by the Federal Confidentiality of Alcohol and Drug Abuse Patient Records regulations: The Federal rules restrict any use of the information to criminally investigate or prosecute any alcohol or drug abuse patient.[facility] the event this information is protected by the Federal Confidentiality of Alcohol and Drug Abuse Patient Records regulations: The Federal rules restrict any use of the information to criminally investigate or prosecute any alcohol or drug abuse patient.[facility] Shaw[facility] the event this information is protected by the Federal Confidentiality of Alcohol and Drug Abuse Patient Records regulations: The Federal rules restrict any use of the information to criminally investigate or prosecute any alcohol or drug abuse patient.[facility] ShawIn the event this information is protected by the Federal Confidentiality of Alcohol and Drug Abuse Patient Records regulations: The Federal rules restrict any use of the information to criminally investigate or prosecute any alcohol or drug abuse patient.[facility] ShawIn the event this information is protected by the Federal Confidentiality of Alcohol and Drug Abuse Patient Records regulations: The Federal rules restrict any use of the information to criminally investigate or prosecute any alcohol or drug abuse patient.[facility] ShawIn the event this information is protected by the Federal Confidentiality of Alcohol and Drug Abuse Patient Records regulations: The Federal rules restrict any use of the information to criminally investigate or prosecute any alcohol or drug abuse patient.[facility] ShawIn the event this information is protected by the Federal Confidentiality of Alcohol and Drug Abuse Patient Records regulations: The Federal rules restrict any use of the information to criminally investigate or prosecute any alcohol or drug abuse patient.[facility] ShawIn the event this information is protected by the Federal Confidentiality of Alcohol and Drug Abuse Patient Records regulations: The Federal rules restrict any use of the information to criminally investigate or prosecute any alcohol or drug abuse patient.[facility] ShawIn the event this information is protected by the Federal Confidentiality of Alcohol and Drug Abuse Patient Records regulations: The Federal rules restrict any use of the information to criminally investigate or prosecute any alcohol or drug abuse patient.[facility] Reason for Visit (unrecogniz ed section and content) Reason Comments Rash bilateral legs, left worse x 3 days, itching and painful Reason Comments Rash L lower leg x1 month Reason Comments Medicare Wellness Exam Reason Comments Labs Needed before Follow Up? Reason Comments Established Patient Medication refill Reason Comments Patient Update Reason Comments Medication Question Reason Comments Annual Medicare Wellness Reason Comments Rash Rash on calf of righ t leg x 2 days Reason Comments Follow Up Cellulitis Reason Onset Date Comments F/U 6 Month Immunizations 05/31/2023 Flu vaccination Reason Comments Follow Up Prostate Cancer Reason Onset Date Comments Refill Request 10/11/2023 Reason Comments F/U 6 months Rash Medicare Wellness Exam Reason Comments Follow Up Benign Prostatic Hypertrophy Prostate Cancer Reason Comments Results Reason Comments Elevated glucose Reason Comments Follow Up question, about over the counter med to take for runny nose besides Maritza Reason Onset Date Comments Refill Request 11/19/2024 Reason Comments Patient Question Reason Comments Medicare Wellness Exam Care Teams (unrecognized sec tion and content) Metal Hanging Supervisor Relationship Specialty Start Date End Date Chris Ibarra MD [address] [place], [place] [id number] PCP - General Internal Medicine 11/16/20 Metal Hanging Supervisor Relationship Specialty Start Date End Date Chris Ibarra MD [address] [place], [place] [id number] PCP - General Internal Medicine 11/16/20 Metal Hanging Supervisor Relationship Specialty Start Date End Date Chris Ibarra MD [address] [place] [address] PCP - General Internal Medicine 11/16/20 Metal Hanging Supervisor Relationship Specialty Start Date End Date Chris Ibarra MD [address] [place] [address] PCP - General Internal Medicine 11/16/20 Metal Hanging Supervisor Relationship Specialty Start Date End Date Chris Ibarra MD [address] [place] [address] PCP - General Internal Medicine 11/16/20 Metal Hanging Supervisor Relationship Specialty Start Date End Date Chris Ibarra MD [address] [place] [address] PCP - General Internal Medicine 11/16/20 Metal Hanging Supervisor Relationship Specialty Start Date End Date Chris Ibarra MD [address] [place] [address] PCP - General Internal Medicine 11/16/20 Metal Hanging Supervisor Relationship Specialty Start Date End Date Chris Ibarra MD [address] [place] [address] PCP - General Internal Medicine 11/16/20 Metal Hanging Supervisor Relationship Specialty Start Date End Date Chris Ibarra MD [address] [place] [address] PCP - General Internal Medicine 11/16/20 Metal Hanging Supervisor Relationship Specialty Start Date End Date Chris Ibarra MD [address] [place] [address] PCP - General Internal Medicine 11/16/20 Metal Hanging Supervisor Relationship Specialty Start Date End Date Chris Ibarra MD [address] [place] [address] PCP - General Internal Medicine 11/16/20 Metal Hanging Supervisor Relationship Specialty Start Date End Date Chris Ibarra MD [address] [place] [address] PCP - General Internal Medicine 11/16/20 Metal Hanging Supervisor Relationship Specialty Start Date End Date Chris Ibarra MD [address] [place] [address] PCP - General Internal Medicine 11/16/20 Metal Hanging Supervisor Relationship Specialty Start Date End Date Chris Ibarra MD [address] [place] [address] PCP - General Internal Medicine 11/16/20 Metal Hanging Supervisor Relationship Specialty Start Date End Date Chris Ibarra MD [address] [place] [address] PCP - General Internal Medicine 11/16/20 Metal Hanging Supervisor Relationship Specialty Start Date End Date Chris Ibarra MD [address] [place] [address] PCP - General Internal Medicine 11/16/20 Metal Hanging Supervisor Relationship Specialty Start Date End Date Chris Ibarra MD [address] [place] [address] PCP - General Internal Medicine 11/16/20 Metal Hanging Supervisor Relationship Specialty Start Date End Date Chirs Ibarra MD [address] [place] [address] PCP - General Internal Medicine 11/16/20 Metal Hanging Supervisor Relationship Specialty Start Date End Date Chris Ibarra MD [address] [place] [address] PCP - General Internal Medicine 11/16/20 Dorita Lincoln, SPORTS PHYSIOTHERAPIST.MAINTENANCE DISPATCHER [address] [place] [address] [facility] Internal Medicine 05/26/24 Metal Hanging Supervisor Relationship Specialty Start Date End Date Chris Ibarra MD [address] [place] [address] PCP - General Internal Medicine 11/16/20 Dorita Lincoln, SPORTS PHYSIOTHERAPIST.MAINTENANCE DISPATCHER [address] [place] [address] [facility] Internal Medicine 05/26/24 Metal Hanging Supervisor Relationship Specialty Start Date End Date Chris Ibarra MD [address] [place] [address] PCP - General Internal Medicine 11/16/20 Dorita Lincoln, SPORTS PHYSIOTHERAPIST.MAINTENANCE DISPATCHER [address] [place] [address] [facility] Internal Medicine 05/26/24 Metal Hanging Supervisor Relationship Specialty Start Date End Date Chris Ibarra MD [address] [place] [address] PCP - General Internal Medicine 11/16/20 Dorita Lincoln, SPORTS PHYSIOTHERAPIST.MAINTENANCE DISPATCHER [address] [place] [address] [facility] Internal Medicine 05/26/24 Metal Hanging Supervisor Relationship Specialty Start Date End Date Chris Ibarra MD [address] [place] [address] PCP - General Internal Medicine 11/16/20 Dorita Lincoln, [facility] [address] [place] [address] Cushion Assembler Internal Medicine 05/26/24 FOR RECORDS PERTAINING TO PATIENTS WHO ARE OR HAVE BEEN ENROLLED IN A CHEMICAL DEPENDENCY/SUBSTANCEABUSE PROGRAM, SOME INFORMATION MAY BE OMITTED. This clinical summary was aggregated from multiple sources. Caution should be exercised in using it in the provision of clinical care. This summary normalizes information from multiple sources, and as a consequence, information in this document may materially change the coding, format and clinical context of patient data. In addition, data may be omitted in some cases. CLINICAL DECISIONS SHOULD BE BASED ON THE PRIMARY CLINICAL RECORDS. [employer] [facility]. provides no warranty or guarantee of the accuracy or completeness of information in this document.
--- NOTE | 2025-03-21 11:15 | EX.ED.DYSGE1 ---
HPI History of Present Illness Chief Complaint: Rash Narrative Narrative: Chief complaint and HPI: 74-year-old male with past medical history of prostate and skin cancer presents for evaluation of rash to the legs and face. Onset 1 week ago. Rash is pruritic. He denies any contact with poison pawel or poison oak. Denies any insect bites. Originally started on his right leg and then spread to the other leg and face. Went to urgent care and recommended him be evaluated in the emergency department. He denies any fever, chills, nausea, vomiting, numbness or tingling. Review of systems: See HPI Medications: As listed on the chart Allergies: As listed on the chart PFSH: Per chart Vital signs: As listed on the chart. Reviewed. Physical exam: Gen: Alert and oriented , NAD Head: Normocephalic, atraumatic Eyes: No sclera icterus, conjunctiva clear ENT: Moist mucous membranes Neck: Trachea midline CV: RRR, no murmurs, no peripheral edema Resp: Lungs CTA BL, no w/r/c Musc: Full ROM, no deformity Skin: Warm, dry. Patient has a small abrasion to the right anterior dodd without signs of infection above the abrasion is an area of small/erythematous red pustules centered around hair follicles with a central white head -this is also seen mildly on the left lower extremity and bilateral cheeks, bilateral cheeks have dry skin in the area as well as small excoriations from scratching-no signs of cellulitis, rash is pruritic to touch, no vesicles, petechiae/purpura, no skin sloughing or mucosal involvement, no crepitus, no weeping or drainage. Neuro: Alert, oriented, grossly intact Psych: Cooperative, appropriate mood and affect [facility] Medical History (Updated 03/21/25 @ 11:[address] Jeff Rocha, DO) Skin cancer Prostate CA Home Medications ?Medication ?Instructions ?Recorded ?Last Taken ?Type clindamycin phosphate 1 % lotion 1 applic topical BID 7 days #60 mL 03/21/25 Unknown Rx Allergy/AdvReac Type Severity Reaction Status Date / Time No Known Allergies Allergy Verified 03/21/25 10:42 Social History Smoking Status: Never smoker EXAM Physical Exam Const Vital Signs: 03/21/25 10:42 03/21/25 11:21 Temperature 98.4 F 98.4 F Temperature Source Oral Pulse Rate 64 64 Respiratory Rate 18 18 Blood Pressure 140/70 H 140/70 H Blood Pressure Mean 93 93 Pulse Ox 98 98 Oxygen Delivery Method Room Air MDM MDM MDM Narrative Medical decision making narrative: 74-year-old male with past medical history of prostate and skin cancer presents for evaluation of rash to the legs and face. Onset 1 week ago. Rash is pruritic. Originally started on his right leg and then spread to the other leg and face. Went to urgent care and recommended him be evaluated in the emergency department. Denies any systemic symptoms. See physical exam findings. Rash is consistent with folliculitis. Patient states he did have Marycarmen obtained the abrasion to his right calf and then the rash developed. Suspect this is because of the folliculitis. Recommended Benadryl for itching. Recommend not scratching the area as this causes spreading. Will place on clindamycin topical cream for 7 days. Antiseptic soap. Follow-up with primary care physician. He confirmed understand the plan. Patient stable to discharge home. Impression: 1. Folliculitis Discharge Plan Triage Chief Complaint: Rash ED Provider: Jeff Rocha Dx/Rx/DC Orders Clinical Impression: Folliculitis Instructions: ED Folliculitis Prescriptions: New clindamycin phosphate 1 % lotion 1 applic topical BID 7 Days Qty: 60 0RF Rx Instructions: Apply to infected area Primary Care Provider: Chris Tucker Referrals: Chris Tucker MD [Primary Care Provider, Internal Medicine] - 3-5 Days Activity Restrictions/Additional Instructions: Usually resolves in 1 to 2 weeks. Try not to scratch the area. Benadryl as needed for itching. Return back to ED if symptoms change or worsen. Follow-up with your primary care physician. Use the antibiotic cream. Print Language: Bruneian Disposition Disposition: Home, Self Care Discharge Date/Time: 03/21/25 11:22
--- NOTE | 2025-03-21 11:17 | CM.ED ---
Social Work Date of referral: 03/21/25 Reason for referral: Advanced Care Directives (ACD's) not in place. Referred by: Social Work identification Patient provided consent to social work visit. Register Clerk requested patient to bring in a copy of ACD's when able which patient was agreeable to. Charmaine Rankin, REGULATORY COMPLIANCE ENGINEER, FINANCIAL WELLNESS COACH
[2025-03-21 11:21] VITALS: BP 140/70; PULSE 64; RESP 18; TEMP 36.9; O2SAT 98
== END 2025-03-21 11:22 | disposition home or self-care (01) ==
PROVIDERS: Emergency Provider Surgery; PCP Internal Medicine; Visit Provider Surgery
DX: L73.9 Follicular disorder, unspecified (principal)
CPT/HCPCS: 99282